=== PATIENT | female | born 1960 | race American Indian/Alaskan Native ===

== ENCOUNTER 2018-08-27 07:43 | Inpatient (IN) | payer OTHER ==
[2018-08-27] MEDS ORDERED: MAGNESIUM SULFATE 2GM/50ML 2 GM/50 ML BAG IV ONE (07:56)
[2018-08-27] MEDS ORDERED: DUONEB *Not for PRN Use IH ONE (07:56)
[2018-08-27] MEDS ORDERED: SOLU-Medrol IV ONE (07:56)
--- NOTE | 2018-08-27 08:00 | Emergency Department Report ---
ED Shortness of Breath HPI - General Chief Complaint: Dyspnea/Respdistress Stated Complaint: SHORTNESS OF BREATH Time Seen by Provider: 08/27/18 07:45 Source: patient, EMS Mode of arrival: Stretcher Limitations: No Limitations - History of Present Illness Initial Comments: Patient's 58-year-old female that presents to emergency room with complaints of shortness of breath and difficulty breathing. Patient states she was seen here on 08/19/2018 and was diagnosed with URI and reactive airway disease and given a Z-Shawn. Patient has taken her medication and has actually worsened. Patient states she saw her primary care 3 days ago. Patient states her cough portion. Patient case or shortness of breath and dyspnea on exertion or worsening. Patient denies chest pain and fever and chills. Patient denies diaphoresis. Patient denies nausea vomiting. MD Complaint: shortness of breath, cough -: Sudden Severity: severe Consistency: constant Improves With: rest, bronchodilators Worsens With: exertion, coughing Context: recent URI (and bronchitis/ ) Associated Symptoms: cough, sputum production Treatments Prior to Arrival: bronchodilator - Related Data Home Oxygen Therapy: No Previous Rx's Medication Instructions Recorded Last Taken Type Azithromycin [Zithromax Z-SHAWN] 250 mg PO DAILY #6 tab 08/19/18 Unknown Rx Allergies Allergy/AdvReac Type Severity Reaction Status Date / Time No Known Allergies Allergy Unverified 08/19/18 05:03 ED Review of Systems ROS: Stated complaint: SHORTNESS OF BREATH Other details as noted in HPI Constitutional: denies: chills, fever Eyes: denies: eye pain, eye discharge, vision change ENT: denies: ear pain, throat pain Respiratory: cough, shortness of breath, SOB with exertion, SOB at rest, wheezing Cardiovascular: denies: chest pain, palpitations Endocrine: no symptoms reported Gastrointestinal: denies: abdominal pain, nausea, diarrhea Genitourinary: denies: urgency, dysuria, discharge Musculoskeletal: denies: back pain, joint swelling, arthralgia Skin: denies: rash, lesions Neurological: denies: headache, weakness, paresthesias Psychiatric: denies: anxiety, depression Hematological/Lymphatic: denies: easy bleeding, easy bruising ED Past Medical Hx - Past Medical History Previous Medical History?: Yes Hx Hypertension: Yes Hx Diabetes: Yes Additional medical history: L breast Ca, chemo & radiation-2008. remission since 2007 - Surgical History Past Surgical History?: Yes Additional Surgical History: partial hysterectomy. L lumpectomy 2007 - Family History Family history: no significant - Social History Smoking Status: Never Smoker Substance Use Type: None - Medications Home Medications: Home Medications Medication Instructions Recorded Confirmed Last Taken Type Azithromycin [Zithromax Z-SHAWN] 250 mg PO DAILY #6 tab 08/19/18 Unknown Rx ED Physical Exam - General Limitations: No Limitations General appearance: alert, in no apparent distress - Head Head exam: Present: atraumatic, normocephalic - Eye Eye exam: Present: normal appearance - ENT ENT exam: Present: mucous membranes dry - Neck Neck exam: Present: normal inspection - Respiratory Respiratory exam: Present: wheezes, rhonchi. Absent: respiratory distress - Cardiovascular Cardiovascular Exam: Present: regular rate, normal rhythm. Absent: systolic murmur, diastolic murmur, rubs, gallop - GI/Abdominal GI/Abdominal exam: Present: soft, normal bowel sounds - Extremities Exam Extremities exam: Present: normal inspection - Back Exam Back exam: Present: normal inspection - Neurological Exam Neurological exam: Present: alert, oriented X3 - Psychiatric Psychiatric exam: Present: normal affect, normal mood - Skin Skin exam: Present: warm, dry, intact, normal color. Absent: rash ED Course Vital Signs 08/27/18 08/27/18 08/27/18 08:08 08:10 08:24 Temperature 98.6 F Pulse Rate 107 H Pulse Rate [ 104 H Bilateral] Respiratory 16 19 Rate Respiratory 18 Rate [Bilateral ] Blood Pressure 117/82 [Left] O2 Sat by Pulse 91 91 Oximetry - Reevaluation(s) Reevaluation #1: Initial evaluation done. Patient still having wheezing and shortness of breath. Patient will be given mag, Medrol as well as DuoNeb. 08/27/18 07:59 Patient's lung sounds have improved. Patient still has a slight wheeze. Patient still has rhonchi. Patient was admitted to the hospitalist service for further evaluation treatment. Discussed all results with patient. Discussed plan of care the patient. Patient agrees with plan of care and admission. 08/27/18 10:03 - Consultations Consultation #1: Hospitalist consultation for admission. Hospitalist to admit patient. Os was to assume care of patient. Bridge orders place. 08/27/18 10:23 ED Medical Decision Making - Lab Data Result diagrams: 08/27/18 08:01 08/27/18 08:01 - EKG Data -: EKG Interpreted by Me EKG shows normal: sinus rhythm, axis, ST-T waves Rate: tachycardia - EKG Data Interpretation: other (LBBB) - Radiology Data Radiology results: report reviewed AP CHEST: HISTORY: Difficulty in breathing A right middle lobe opacity has developed since 08/19/18. The remainder of the lungs are clear. Heart size and pulmonary vasculature appear borderline. No pleural fluid or pneumothorax. The bony structures are grossly intact. IMPRESSION: Right middle lobe airspace opacity. Correlate for early pneumonia. Borderline heart size and pulmonary veins. Transcribed By: TTR Dictated By: KIMBERLEE CEBALLOS JR, MD Electronically Authenticated By: KIMBERLEE CEBALLOS JR, MD Signed Date/Time: 08/27/18 0816 - Medical Decision Making She's 58-year-old female that presents with shortness of breath. Patient treated as an outpatient with Zithromax and failed outpatient therapy. Patient is a [facility] further evaluation treatment. Patient had an IV antibiotics and steroids and mag and 2 nebs in the ER. Patient slightly improved. Patient will require IV antibiotics and inpatient observation. - Differential Diagnosis pna. bronchitis. asthma/rad. sob Critical Care Time: Yes Critical care attestation.: If time is entered above; I have spent that time in minutes in the direct care of this critically ill patient, excluding procedure time. Critical Care Time: 45 minutes. ED Disposition Clinical Impression: Left bundle branch block, Cough, SOB (shortness of breath), Lactic acid acidosis, Hypoxia Pneumonia Qualifiers: Pneumonia type: due to unspecified organism Laterality: right Lung location: middle lobe of lung Qualified Code(s): J18.1 - Lobar pneumonia, unspecified organism Sepsis Qualifiers: Sepsis type: sepsis due to unspecified organism Qualified Code(s): A41.9 - Sepsis, unspecified organism Disposition: OP ADMIT IP TO THIS HOSP Is pt being admited?: Yes Does the pt Need Aspirin: No Condition: Critical Time of Disposition: 10:23
--- NOTE | 2018-08-27 08:18 | XRay Report ---
AP CHEST: HISTORY: Difficulty in breathing A right middle lobe opacity has developed since 08/19/18. The remainder of the lungs are clear. Heart size and pulmonary vasculature appear borderline. No pleural fluid or pneumothorax. The bony structures are grossly intact. IMPRESSION: Right middle lobe airspace opacity. Correlate for early pneumonia. Borderline heart size and pulmonary veins.
[2018-08-27 08:19] LABS: Basophils # (Auto) 0.1 K/mm3 (0.0-0.1); Basophils % (Auto) 1.1 % (0.0-1.8); Eosinophils # (Auto) 0.1 K/mm3 (0.0-0.4); Eosinophils % (Auto) 1.1 % (0.0-4.3); Hematocrit 41.8 % (30.3-42.9); Hemoglobin 13.6 gm/dl (10.1-14.3); Lymphocytes # (Auto) 2.7 K/mm3 (1.2-5.4); Lymphocytes % (Auto) 34.2 % (13.4-35.0); Mean Corpuscular HGB Conc 33 % (30-34); Mean Corpuscular Volume 91 fl (79-97); Monocytes # (Auto) 0.4 K/mm3 (0.0-0.8); Monocytes % (Auto) 5.7 % (0.0-7.3); Platelet Count 243 K/mm3 (140-440); Red Cell Distribution Width 14.5 % (13.2-15.2)
[2018-08-27 08:31] LABS: Creatine Kinase MB 2.2 ng/mL (0.0-4.0)
[2018-08-27 08:33] LABS: Alanine Aminotransferase 22 units/L (7-56); Albumin 4.1 g/dL (3.9-5); BUN/Creatinine Ratio 17; Blood Urea Nitrogen 10 mg/dL (7-17); Calcium 8.7 mg/dL (8.4-10.2); Hemolysis Index 12
[2018-08-27] MEDS ORDERED: LEVAQUIN 750MG/150ML 750 MG/150 ML BAG IV ONE (09:39)
[2018-08-27] MEDS ORDERED: NACL 0.9% 1000 ML 1,000 ML IV ONE (09:40)
[2018-08-27] MEDS ORDERED: ZOFRAN IV PRN (11:59)
[2018-08-27] MEDS ORDERED: TYLENOL PO PRN (11:59)
[2018-08-27] MEDS ORDERED: SODIUM CHLORIDE FLUSH SYRINGE 10 ML IV PRN (11:59)
--- NOTE | 2018-08-27 11:59 | History and Physical Report ---
History of Present Illness Date of examination: 08/27/18 Date of admission: 08/27/18 10:22 Chief complaint: sob History of present illness: Patient's 58-year-old female that presents to emergency room with complaints of shortness of breath and difficulty breathing. Patient states she was seen here on 08/19/2018 and was diagnosed with URI and reactive airway disease and given a Z-Shawn. Patient has taken her medication and has actually worsened. Patient states she saw her primary care 3 days ago. Patient states her cough has worsened. She reports shortness of breath and dyspnea on exertion. Patient denies chest pain, fever and chills. Patient denies diaphoresis. Patient denies nausea vomiting. Past History Past Medical History: diabetes, hypertension Past Surgical History: No surgical history Social history: no significant social history Family history: no significant family history Medications and Allergies Allergies Allergy/AdvReac Type Severity Reaction Status Date / Time No Known Allergies Allergy Unverified 08/19/18 05:03 Home Medications Medication Instructions Recorded Confirmed Last Taken Type Azithromycin [Zithromax Z-SHAWN] 250 mg PO DAILY #6 tab 08/19/18 Unknown Rx Review of Systems All systems: negative Exam - Constitutional Vitals: Temp Pulse Resp BP Pulse Ox 98.6 F 104 H 18 117/82 91 08/27/18 08:08 08/27/18 08:24 08/27/18 08:24 08/27/18 08:08 08/27/18 08:10 General appearance: Present: no acute distress, well-nourished - EENT Eyes: Present: PERRL ENT: hearing intact, clear oral mucosa - Neck Neck: Present: supple, normal ROM - Respiratory Respiratory effort: normal Respiratory: bilateral: diminished, rhonchi - Cardiovascular Heart Sounds: Present: S1 & S2. Absent: rub, click - Extremities Extremities: pulses symmetrical, No edema Peripheral Pulses: within normal limits - Abdominal General gastrointestinal: Present: soft, non-tender, non-distended, normal bowel sounds Female genitourinary: Present: normal - Integumentary Integumentary: Present: clear, warm, dry - Musculoskeletal Musculoskeletal: gait normal, strength equal bilaterally - Psychiatric Psychiatric: appropriate mood/affect, intact judgment & insight - Neurologic Neurologic: CNII-XII intact, moves all extremities Results - Labs CBC & Chem 7: 08/27/18 08:01 08/27/18 08:01 Labs: Laboratory Last Values WBC 7.8 K/mm3 (4.5-11.0) 08/27/18 08:01 RBC 4.60 M/mm3 (3.65-5.03) 08/27/18 08:01 Hgb 13.6 gm/dl (10.1-14.3) 08/27/18 08:01 Hct 41.8 % (30.3-42.9) 08/27/18 08:01 MCV 91 fl (79-97) 08/27/18 08:01 MCH 30 pg (28-32) 08/27/18 08:01 MCHC 33 % (30-34) 08/27/18 08:01 RDW 14.5 % (13.2-15.2) 08/27/18 08:01 Plt Count 243 K/mm3 (140-440) 08/27/18 08:01 Lymph % (Auto) 34.2 % (13.4-35.0) 08/27/18 08:01 [place] % (Auto) 5.7 % (0.0-7.3) 08/27/18 08:01 Eos % (Auto) 1.1 % (0.0-4.3) 08/27/18 08:01 Baso % (Auto) 1.1 % (0.0-1.8) 08/27/18 08:01 Lymph # 2.7 K/mm3 (1.2-5.4) 08/27/18 08:01 [place] # 0.4 K/mm3 (0.0-0.8) 08/27/18 08:01 Eos # 0.1 K/mm3 (0.0-0.4) 08/27/18 08:01 Baso # 0.1 K/mm3 (0.0-0.1) 08/27/18 08:01 Seg Neutrophils % 57.9 % (40.0-70.0) 08/27/18 08:01 Seg Neutrophils # 4.5 K/mm3 (1.8-7.7) 08/27/18 08:01 Sodium 144 mmol/L (137-145) 08/27/18 08:01 Potassium 3.4 mmol/L (3.6-5.0) L 08/27/18 08:01 Chloride 104.3 mmol/L (98-107) 08/27/18 08:01 Carbon Dioxide 24 mmol/L (22-30) 08/27/18 08:01 Anion Gap 19 mmol/L 08/27/18 08:01 BUN 10 mg/dL (7-17) 08/27/18 08:01 Creatinine 0.6 mg/dL (0.7-1.2) L 08/27/18 08:01 Estimated GFR > 60 ml/min 08/27/18 08:01 BUN/Creatinine Ratio 17 % 08/27/18 08:01 Glucose 225 mg/dL (65-100) H 08/27/18 08:01 Lactic Acid 3.10 mmol/L (0.7-2.0) H* 08/27/18 09:10 Calcium 8.7 mg/dL (8.4-10.2) 08/27/18 08:01 Total Bilirubin 0.20 mg/dL (0.1-1.2) 08/27/18 08:01 AST 23 units/L (5-40) 08/27/18 08:01 ALT 22 units/L (7-56) 08/27/18 08:01 Alkaline Phosphatase 121 units/L (35-129) 08/27/18 08:01 Total Creatine Kinase 115 units/L (30-135) 08/27/18 08:01 CK-MB (CK-2) 2.2 ng/mL (0.0-4.0) 08/27/18 08:01 CK-MB (CK-2) Rel Index 1.9 (0-4) 08/27/18 08:01 Troponin T < 0.010 ng/mL (0.00-0.029) 08/27/18 08:01 Total Protein 7.0 g/dL (6.3-8.2) 08/27/18 08:01 Albumin 4.1 g/dL (3.9-5) 08/27/18 08:01 Albumin/Globulin Ratio 1.4 % 08/27/18 08:01 Assessment and Plan Assessment and plan: RML pneumonia. IV abx. F/U blood Cx. Serial CXR COPD exacerbation. COPD pathway. IV steroids and breathing treatments DM type n2. Accuchecks and SSRI HTN. Normotensive presently off meds
[2018-08-27] MEDS ORDERED: PROVENTIL IH PRN (13:47)
[2018-08-27] MEDS ORDERED: DUONEB *Not for PRN Use IH SCH (14:00)
[2018-08-27] MEDS: DUONEB *Not for PRN Use IH SCH (20:22)
[2018-08-27] MEDS: HumuLIN R SUB-Q SCH (21:57)
[2018-08-27] MEDS: SODIUM CHLORIDE FLUSH SYRINGE 10 ML IV SCH (21:59)
[2018-08-27] MEDS: SOLU-Medrol IV SCH (21:59)
[2018-08-27] MEDS: NACL 0.9% 1000 ML 1,000 ML IV SCH (22:01)
[2018-08-28 05:23] LABS: Basophils % (Auto) 0.4 % (0.0-1.8); Hematocrit 38.1 % (30.3-42.9); Hemoglobin 12.5 gm/dl (10.1-14.3); Lymphocytes # (Auto) 0.9 K/mm3 (1.2-5.4); Lymphocytes % (Auto) 13.5 % (13.4-35.0); Mean Corpuscular HGB Conc 33 % (30-34); Mean Corpuscular Volume 90 fl (79-97); Monocytes # (Auto) 0.1 K/mm3 (0.0-0.8); Platelet Count 248 K/mm3 (140-440); Red Blood Count 4.23 M/mm3 (3.65-5.03); Red Cell Distribution Width 14.1 % (13.2-15.2)
[2018-08-28 05:38] LABS: BUN/Creatinine Ratio 18; Blood Urea Nitrogen 9 mg/dL (7-17); Hemolysis Index 6
[2018-08-28] MEDS: HumuLIN R SUB-Q SCH ×4 (07:30→21:43)
[2018-08-28] MEDS: DUONEB *Not for PRN Use IH SCH ×3 (07:59→19:44)
[2018-08-28] MEDS: NACL 0.9% 1000 ML 1,000 ML IV SCH (09:41)
[2018-08-28] MEDS: LOVENOX SUB-Q SCH (09:41)
[2018-08-28] MEDS: SOLU-Medrol IV SCH ×2 (09:41→21:41)
[2018-08-28] MEDS: SODIUM CHLORIDE FLUSH SYRINGE 10 ML IV SCH ×2 (09:42→21:46)
[2018-08-28] MEDS: ROCEPHIN/NS 2 GM/100 ML 2 GM/100 ML BAG IV SCH (09:47)
[2018-08-28] MEDS: ZITHROMAX 500 MG in NACL 0.9% 250ML 250 ML IV SCH (10:00)
--- NOTE | 2018-08-28 15:25 | Progress Note ---
Assessment and Plan Assessment and plan: RML pneumonia. Failed outpatient treatment. Currently patient is on IV abx. - Blood culture negative so far - Patient showed improvement will continue with IV antibiotic COPD exacerbation. - COPD pathway. IV steroids and breathing treatments DM type n2. Accuchecks and SSRI. Blood sugar is well controlled HTN. Normotensive presently off meds DVT prophylaxis; Lovenox Disposition; continue inpatient care and possible discharge tomorrow. History Interval history: Patient was seen and evaluated this morning, patient's shortness of breath, cough is getting better. Hospitalist Physical - Physical exam Narrative exam: Not in cardiopulmonary distress. The patient appeared well nourished and normally developed. Vital signs as documented. Head exam is unremarkable. No scleral icterus . Neck is without jugular venous distension, thyromegaly, or carotid bruits. Lungs are clear to auscultation. Cardiac exam reveals regular rate and Rhythm. Abdominal exam reveals normal bowel sounds. Extremities are nonedematous. CONTACT WORKER: Alert and oriented 3. No focal weakness. - Constitutional Vitals: Temp Pulse Resp BP Pulse Ox 98.6 F 114 H 18 125/82 91 08/28/18 11:37 08/28/18 13:50 08/28/18 13:50 08/28/18 11:37 08/28/18 11:37 General appearance: Present: no acute distress, well-nourished Results - Labs CBC & Chem 7: 08/28/18 04:46 08/28/18 04:46 Labs: Laboratory Last Values WBC 6.6 K/mm3 (4.5-11.0) 08/28/18 04:46 RBC 4.23 M/mm3 (3.65-5.03) 08/28/18 04:46 Hgb 12.5 gm/dl (10.1-14.3) 08/28/18 04:46 Hct 38.1 % (30.3-42.9) 08/28/18 04:46 MCV 90 fl (79-97) 08/28/18 04:46 MCH 30 pg (28-32) 08/28/18 04:46 MCHC 33 % (30-34) 08/28/18 04:46 RDW 14.1 % (13.2-15.2) 08/28/18 04:46 Plt Count 248 K/mm3 (140-440) 08/28/18 04:46 Lymph % (Auto) 13.5 % (13.4-35.0) 08/28/18 04:46 [place] % (Auto) 2.0 % (0.0-7.3) 08/28/18 04:46 Eos % (Auto) 0.0 % (0.0-4.3) 08/28/18 04:46 Baso % (Auto) 0.4 % (0.0-1.8) 08/28/18 04:46 Lymph # 0.9 K/mm3 (1.2-5.4) L 08/28/18 04:46 [place] # 0.1 K/mm3 (0.0-0.8) 08/28/18 04:46 Eos # 0.0 K/mm3 (0.0-0.4) 08/28/18 04:46 Baso # 0.0 K/mm3 (0.0-0.1) 08/28/18 04:46 Seg Neutrophils % 84.1 % (40.0-70.0) H 08/28/18 04:46 Seg Neutrophils # 5.5 K/mm3 (1.8-7.7) 08/28/18 04:46 Sodium 144 mmol/L (137-145) 08/28/18 04:46 Potassium 4.1 mmol/L (3.6-5.0) D 08/28/18 04:46 Chloride 108.4 mmol/L (98-107) H 08/28/18 04:46 Carbon Dioxide 25 mmol/L (22-30) 08/28/18 04:46 Anion Gap 15 mmol/L 08/28/18 04:46 BUN 9 mg/dL (7-17) 08/28/18 04:46 Creatinine 0.5 mg/dL (0.7-1.2) L 08/28/18 04:46 Estimated GFR > 60 ml/min 08/28/18 04:46 BUN/Creatinine Ratio 18 % 08/28/18 04:46 Glucose 145 mg/dL (65-100) H 08/28/18 04:46 POC Glucose 135 (70-105) H 08/28/18 11:19 Lactic Acid 0.90 mmol/L (0.7-2.0) 08/28/18 09:32 Calcium 9.0 mg/dL (8.4-10.2) 08/28/18 04:46 Total Bilirubin 0.20 mg/dL (0.1-1.2) 08/27/18 08:01 AST 23 units/L (5-40) 08/27/18 08:01 ALT 22 units/L (7-56) 08/27/18 08:01 Alkaline Phosphatase 121 units/L (35-129) 08/27/18 08:01 Total Creatine Kinase 115 units/L (30-135) 08/27/18 08:01 CK-MB (CK-2) 2.2 ng/mL (0.0-4.0) 08/27/18 08:01 CK-MB (CK-2) Rel Index 1.9 (0-4) 08/27/18 08:01 Troponin T < 0.010 ng/mL (0.00-0.029) 08/27/18 08:01 Total Protein 7.0 g/dL (6.3-8.2) 08/27/18 08:01 Albumin 4.1 g/dL (3.9-5) 08/27/18 08:01 Albumin/Globulin Ratio 1.4 % 08/27/18 08:01
--- NOTE | 2018-08-29 08:34 | Event Note ---
Date: 08/29/18 Code met was called earlier this morning, patient was diaphoretic and was tachycardic, EKG was done and image was sent to Dr Gonzalez and doesn't think it is STEMI. Dr Richardson was over paged and patient transferred to telemetry. Troponin, CTA and CXR ordered will follow the result.
[2018-08-29 08:44] LABS: Creatine Kinase MB 2.7 ng/mL (0.0-4.0)
[2018-08-29] MEDS: DUONEB *Not for PRN Use IH SCH ×3 (08:59→20:26)
[2018-08-29] MEDS: SOLU-Medrol IV SCH ×2 (09:00→22:21)
--- NOTE | 2018-08-29 09:45 | Consultation ---
History of Present Illness Consult date: 08/29/18 Requesting physician: JESÚS CREWS Consult reason: tachycardia Past History Past Medical History: diabetes, hypertension Past Surgical History: No surgical history Social history: no significant social history Family history: no significant family history Medications and Allergies Allergies Allergy/AdvReac Type Severity Reaction Status Date / Time No Known Allergies Allergy Unverified 08/19/18 05:03 Home Medications Medication Instructions Recorded Confirmed Last Taken Type Amlodipine Besylate 10 mg PO DAILY 08/27/18 08/27/18 08/26/18 History Atorvastatin Calcium 80 mg PO DAILY 08/27/18 08/27/18 08/26/18 History Lisinopril 20 mg PO DAILY 08/27/18 08/27/18 08/26/18 History Potassium 20 mg PO DAILY 08/27/18 08/27/18 08/26/18 History Venlafaxine 75 mg PO DAILY 08/27/18 08/27/18 08/26/18 History Vitamin D (Nf) 125 mg PO DAILY 08/27/18 08/27/18 08/26/18 History metFORMIN 500 insert PO BID 08/27/18 08/27/18 08/26/18 History potadss Active Meds: Active Medications Acetaminophen (Tylenol) 650 mg PO Q4H PRN PRN Reason: Pain MILD(1-3)/Fever >100.5/RIVERA Albuterol (Proventil) 2.5 mg IH Q4HRT PRN PRN Reason: Shortness Of Breath Albuterol/Ipratropium (Duoneb *Not For Prn Use*) 1 ampul IH TIDRT [facility] Last Admin: 08/29/18 08:59 Dose: 1 ampul Documented by: Enoxaparin Sodium (Lovenox) 40 mg SUB-Q QDAY [facility] Last Admin: 08/28/18 09:41 Dose: 40 mg Documented by: Azithromycin 500 mg/ Sodium (Chloride) 250 mls @ 250 mls/hr IV Q24HR [facility]; Protocol Last Admin: 08/28/18 10:00 Dose: 250 mls/hr Documented by: Ceftriaxone Sodium (Rocephin/Ns 2 Gm/100 Ml) 2 gm in 100 mls @ 200 mls/hr IV Q24HR [facility]; Protocol Last Admin: 08/28/18 09:47 Dose: 200 mls/hr Documented by: Sodium Chloride (Nacl 0.9% 1000 Ml) 1,000 mls @ 75 mls/hr IV DIRECT [facility] Last Admin: 08/28/18 09:41 Dose: 75 mls/hr Documented by: Insulin Human Regular (Humulin R) 0 units SUB-Q ACHS [facility]; Protocol Last Admin: 08/28/18 21:43 Dose: 2 units Documented by: Methylprednisolone Sodium Succinate (Solu-Medrol) 40 mg IV Q12HR [facility] Last Admin: 08/28/18 21:41 Dose: 40 mg Documented by: Ondansetron HCl (Zofran) 4 mg IV Q8H PRN PRN Reason: Nausea And Vomiting Last Admin: 08/29/18 08:07 Dose: 4 mg Documented by: Sodium Chloride (Sodium Chloride Flush Syringe 10 Ml) 10 ml IV BID [facility] Last Admin: 08/28/18 21:46 Dose: 10 ml Documented by: Sodium Chloride (Sodium Chloride Flush Syringe 10 Ml) 10 ml IV PRN PRN PRN Reason: LINE FLUSH Physical Examination Vital Signs Temp Pulse Resp BP Pulse Ox 98.6 F 107 H 16 117/82 91 08/27/18 08:08 08/27/18 08:08 08/27/18 08:08 08/27/18 08:08 08/27/18 08:08 Results 08/28/18 04:46 08/28/18 04:46 Cardiac Enzymes 08/29/18 Range/Units 08:19 CK-MB (CK-2) 2.7 (0.0-4.0) ng/mL
--- NOTE | 2018-08-29 09:51 | XRay Report ---
AP CHEST: HISTORY: Respiratory distress Hazy opacity at the right lung base has resolved since 08/27/18. The lungs appear well-aerated. No pleural effusion or pneumothorax. Heart size and pulmonary vessels appear borderline on today's exam. Chronic granulomatous findings are again noted. IMPRESSION: Right lower lung infiltration has resolved since the exam 2 days ago. Borderline heart size and pulmonary vessels.
--- NOTE | 2018-08-29 10:43 | Event Note ---
Date: 08/29/18 Detailed cardiology consultation dictated. ECG demonstrates ST with LBBB, no acute ischemic changes, no STEMI. Ken negative for AMI. Obtain echo, await chest CTA, plan for ischemic workup once medically stabilized prior to hospital discharge. Cont tele. Abx per tom. Percy ARELLANO NP / DR. Lorenzo RIVAS
[2018-08-29] MEDS: HumuLIN R SUB-Q SCH ×4 (11:16→22:22)
--- NOTE | 2018-08-29 11:18 | Cat Scan Report ---
CTA CHEST: HISTORY: Respiratory distress, low O2 sats. COMPARISON: none. TECHNIQUE: Helical CT in 1.25mm intervals following IV contrast. Pulmonary embolus protocol. Sagittal and coronal reformatted images. Rotational MIP images. FINDINGS: Contrast bolus is satisfactory. No pulmonary embolus is identified. Thyroid gland: Normal. Tracheobronchial tree: Normal. Esophagus: Normal. Heart: Normal. Pericardium: Normal. Mediastinum: Normal. Lung Pearson: Minor subpleural atelectasis is noted in the posterior lower lobes. There is subtle hazy groundglass shadowing in the right lower lobe which could represent resolving infiltrate or focal edema. The remainder of the lungs are well-aerated. Pleural Spaces: Small layering bilateral pleural effusions measure up to 2 cm in thickness. No pneumothorax. Musculoskeletal: Intact. Limited images of the upper abdomen demonstrated 2.5 cm fat-containing lesion in the superior right kidney consistent with an incidental angiomyolipoma. Scattered liver cysts are also noted. IMPRESSION: No evidence for pulmonary embolus. Residual edema or infiltrate in the right lower lobe as described. Small bilateral pleural effusions of uncertain etiology. Right renal angiomyolipoma. Scattered liver cysts.
[2018-08-29] MEDS: LOVENOX SUB-Q SCH (11:40)
[2018-08-29] MEDS: BABY ASPIRIN PO SCH (11:40)
[2018-08-29] MEDS: ZITHROMAX 500 MG in NACL 0.9% 250ML 250 ML IV SCH (11:40)
[2018-08-29 11:41] LABS: ABG Base Excess 0.3 mmol/L (-2.0-3.0); ABG HCO3 24.8 mmol/L (20.0-26.0); ABG Methemoglobin 0.5 % (0.0-1.5); ABG Oxygen Saturation 96.8 % (95.0-99.0); ABG PCO2 39.6 mm Hg; ABG PH 7.414 pH Units (7.350-7.450); ABG PO2 84.6 mm Hg (80.0-90.0)
[2018-08-29] MEDS: SODIUM CHLORIDE FLUSH SYRINGE 10 ML IV SCH ×2 (11:41→22:22)
--- NOTE | 2018-08-29 13:36 | Consultation ---
CARDIOLOGY CONSULTATION REFERRING PHYSICIAN: Hospitalist service. CHIEF COMPLAINT: Shortness of breath. HISTORY OF PRESENT ILLNESS: The patient is a pleasant 58-year-old -[place] female with a history of hypertension, diabetes, past tobacco abuse, presents with shortness of breath, difficulty breathing, was here on 08/19/2018, was diagnosed in ER with URI and given a Z-SHAWN. She comes in with worsening shortness of breath over the past week and describes cough, fevers, chills, no chest pain. MEDICATIONS: Inpatient and outpatient medications reviewed. REVIEW OF SYSTEMS: As per HPI. PHYSICAL EXAMINATION: VITAL SIGNS: Blood pressure is 110/50. She is afebrile. Telemetry reveals sinus rhythm in the 90s. HEENT: Sclerae are anicteric. PERRLA. NECK: Supple. No mass or JVD. CHEST: Decreased breath sounds, bilateral bases. Overall, moderate air movement. CARDIOVASCULAR: Regular rate and rhythm, S1, S2. ABDOMEN: Soft, nontender, nondistended. Normoactive bowel sounds in 4 quadrants. EXTREMITIES: No significant edema. SKIN: Warm, dry, and intact. No rashes. LABORATORY DATA: EKG reveals sinus tachycardia, left bundle branch block. The patient was here on 08/19/2018. EKG then showed sinus rhythm and left bundle branch block as well. LABORATORY DATA: Lactic acid 3.1. CBC is normal. Potassium is 4.1, creatinine is 0.5. Troponins are negative x 2. Chest x-ray shows a right lower lobe infiltrate. ASSESSMENT: In summary, the patient is a pleasant 58-year-old female. 1. Acute hypoxemic respiratory failure, likely due to right lower lobe pneumonia. 2. Abnormal EKG with left bundle branch block. 3. Hypertension. 4. Diabetes. 5. Past tobacco abuse. 6. Past marijuana use. PLAN: At this point, pneumonia is being treated for primary antibiotics and steroids. We will initiate baby aspirin. Continue Lovenox for DVT prophylaxis. We will check an echocardiogram. Once pneumonia is improved, we will consider ischemic workup prior to discharge. JOB# [id number] SBM/[id number]
--- NOTE | 2018-08-29 16:23 | Progress Note ---
Assessment and Plan Assessment and plan: Code met was called earlier this morning and patient was hypoxic, tachycardic - EKG was done and cardiology saw and patient didn't have STEMI - CTA chest was done and negative for PE - CXR was normal - She was on BIPAP and saturating well - transferred to tele - Cardiology said will do ECHO and stress test before discharge RML pneumonia. Failed outpatient treatment. Currently patient is on IV abx. - Blood culture negative so far - Patient showed improvement will continue with IV antibiotic COPD exacerbation. - COPD pathway. IV steroids and breathing treatments DM type n2. Accuchecks and SSRI. Blood sugar is well controlled HTN. Normotensive presently off meds DVT prophylaxis; Lovenox Disposition; continue inpatient care. The high probability of a clinically significant, sudden or life threatening deterioration of the [CV, respiratory] system(s) required my full and direct attention, intervention and personal management. The aggregate critical care time was [34] minutes. This time is in addition to time spent performing reported procedures but includes the following: [x] Data Review and interpretation [x] Patient assessment and monitoring of vital signs [x] Documentation [x] Medication orders and management History Interval history: Patient was seen and evaluated this morning, code met was called in the morning and patient was hypoxic and tachycardic. Hospitalist Physical - Physical exam Narrative exam: Not in cardiopulmonary distress. The patient appeared well nourished and normally developed. Vital signs as documented. Head exam is unremarkable. No scleral icterus . Neck is without jugular venous distension, thyromegaly, or carotid bruits. Lungs are clear to auscultation. Cardiac exam reveals regular rate and Rhythm. Abdominal exam reveals normal bowel sounds. Extremities are nonedematous. 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 No focal weakness. - Constitutional Vitals: Temp Pulse Resp BP Pulse Ox 97.9 F 100 H 19 117/77 98 08/29/18 11:51 08/29/18 16:10 08/29/18 13:26 08/29/18 16:10 08/29/18 16:10 General appearance: Present: no acute distress, well-nourished Results - Labs CBC & Chem 7: 08/28/18 04:46 08/28/18 04:46 Labs: Laboratory Last Values WBC 6.6 K/mm3 (4.5-11.0) 08/28/18 04:46 RBC 4.23 M/mm3 (3.65-5.03) 08/28/18 04:46 Hgb 12.5 gm/dl (10.1-14.3) 08/28/18 04:46 Hct 38.1 % (30.3-42.9) 08/28/18 04:46 MCV 90 fl (79-97) 08/28/18 04:46 MCH 30 pg (28-32) 08/28/18 04:46 MCHC 33 % (30-34) 08/28/18 04:46 RDW 14.1 % (13.2-15.2) 08/28/18 04:46 Plt Count 248 K/mm3 (140-440) 08/28/18 04:46 Lymph % (Auto) 13.5 % (13.4-35.0) 08/28/18 04:46 [place] % (Auto) 2.0 % (0.0-7.3) 08/28/18 04:46 Eos % (Auto) 0.0 % (0.0-4.3) 08/28/18 04:46 Baso % (Auto) 0.4 % (0.0-1.8) 08/28/18 04:46 Lymph # 0.9 K/mm3 (1.2-5.4) L 08/28/18 04:46 [place] # 0.1 K/mm3 (0.0-0.8) 08/28/18 04:46 Eos # 0.0 K/mm3 (0.0-0.4) 08/28/18 04:46 Baso # 0.0 K/mm3 (0.0-0.1) 08/28/18 04:46 Seg Neutrophils % 84.1 % (40.0-70.0) H 08/28/18 04:46 Seg Neutrophils # 5.5 K/mm3 (1.8-7.7) 08/28/18 04:46 ABG pH 7.414 pH Units (7.350-7.450) 08/29/18 Unknown ABG pCO2 39.6 mm Hg 08/29/18 Unknown ABG pO2 84.6 mm Hg (80.0-90.0) 08/29/18 Unknown ABG HCO3 24.8 mmol/L (20.0-26.0) 08/29/18 Unknown ABG O2 Saturation 96.8 % (95.0-99.0) 08/29/18 Unknown ABG O2 Content 17.2 (0.0-44) 08/29/18 Unknown ABG Base Excess 0.3 mmol/L (-2.0-3.0) 08/29/18 Unknown ABG Hemoglobin 12.8 gm/dl (12.0-16.0) 08/29/18 Unknown ABG Carboxyhemoglobin 1.1 % (0.0-5.0) 08/29/18 Unknown ABG Methemoglobin 0.5 % (0.0-1.5) 08/29/18 Unknown Oxyhemoglobin 95.2 % (95.0-99.0) 08/29/18 Unknown FiO2 21 % 08/29/18 Unknown Sodium 144 mmol/L (137-145) 08/28/18 04:46 Potassium 4.1 mmol/L (3.6-5.0) D 08/28/18 04:46 Chloride 108.4 mmol/L (98-107) H 08/28/18 04:46 Carbon Dioxide 25 mmol/L (22-30) 08/28/18 04:46 Anion Gap 15 mmol/L 08/28/18 04:46 BUN 9 mg/dL (7-17) 08/28/18 04:46 Creatinine 0.5 mg/dL (0.7-1.2) L 08/28/18 04:46 Estimated GFR > 60 ml/min 08/28/18 04:46 BUN/Creatinine Ratio 18 % 08/28/18 04:46 Glucose 145 mg/dL (65-100) H 08/28/18 04:46 POC Glucose 151 (70-105) H 08/29/18 11:54 Lactic Acid 0.90 mmol/L (0.7-2.0) 08/28/18 09:32 Calcium 9.0 mg/dL (8.4-10.2) 08/28/18 04:46 Total Bilirubin 0.20 mg/dL (0.1-1.2) 08/27/18 08:01 AST 23 units/L (5-40) 08/27/18 08:01 ALT 22 units/L (7-56) 08/27/18 08:01 Alkaline Phosphatase 121 units/L (35-129) 08/27/18 08:01 Total Creatine Kinase 113 units/L (30-135) 08/29/18 08:19 CK-MB (CK-2) 2.7 ng/mL (0.0-4.0) 08/29/18 08:19 CK-MB (CK-2) Rel Index 2.3 (0-4) 08/29/18 08: Troponin T < 0.010 ng/mL (0.00-0.029) 08/29/18 08: Total Protein 7.0 g/dL (6.3-8.2) 08/27/18 08:01 Albumin 4.1 g/dL (3.9-5) 08/27/18 08: Albumin/Globulin Ratio 1.4 % 08/27/18 08:01
[2018-08-29] MEDS: ROCEPHIN/NS 2 GM/100 ML 2 GM/100 ML BAG IV SCH (18:25)
[2018-08-30] MEDS: NACL 0.9% 1000 ML 1,000 ML IV SCH ×2 (01:31→18:47)
[2018-08-30] MEDS: HumuLIN R SUB-Q SCH ×4 (08:54→22:00)
[2018-08-30] MEDS: DUONEB *Not for PRN Use IH SCH ×3 (09:34→21:32)
[2018-08-30] MEDS: SOLU-Medrol IV SCH ×2 (10:24→21:47)
[2018-08-30] MEDS: LOVENOX SUB-Q SCH (10:24)
[2018-08-30] MEDS: BABY ASPIRIN PO SCH (10:24)
[2018-08-30] MEDS: SODIUM CHLORIDE FLUSH SYRINGE 10 ML IV SCH ×2 (10:25→21:48)
[2018-08-30] MEDS: ROCEPHIN/NS 2 GM/100 ML 2 GM/100 ML BAG IV SCH (10:25)
[2018-08-30 10:34] LABS: Basophils % (Auto) 0.4 % (0.0-1.8); Hematocrit 39.5 % (30.3-42.9); Hemoglobin 12.9 gm/dl (10.1-14.3); Lymphocytes # (Auto) 2.1 K/mm3 (1.2-5.4); Lymphocytes % (Auto) 23.1 % (13.4-35.0); Mean Corpuscular HGB Conc 33 % (30-34); Mean Corpuscular Volume 90 fl (79-97); Monocytes # (Auto) 0.7 K/mm3 (0.0-0.8); Monocytes % (Auto) 7.9 % (0.0-7.3); Platelet Count 253 K/mm3 (140-440); Red Blood Count 4.41 M/mm3 (3.65-5.03); Red Cell Distribution Width 14.9 % (13.2-15.2)
[2018-08-30 10:50] LABS: BUN/Creatinine Ratio 12; Blood Urea Nitrogen 6 mg/dL (7-17); Calcium 8.8 mg/dL (8.4-10.2); Hemolysis Index 23
[2018-08-30] MEDS: ZITHROMAX 500 MG in NACL 0.9% 250ML 250 ML IV SCH (11:03)
--- NOTE | 2018-08-30 13:58 | Progress Note ---
Assessment and Plan Echo reviewed - EF 15-20%, LA mild to mod dilated, RV slightly dilated, oval calcified mass adherent to the medial aspect of the RA wall, mod to severe MR, mod pulm HTN with RVSP 56mmHg. CMP is new diagnosis for pt. Initiate lopressor (beta selective - pt with ? COPD exacerbation per primary) and lisinopril and titrate as tolerated. HOMERO recommended for further visualization of RA mass. LHC recommended to r/o ischemic CMP. Indications, potential risks and benefits of these procedures reviewed with pt and she is agreeable to proceed with both. Will plan for HOMERO and LHC on 09/02/2017. The patient has been seen in conjunction with Dr. Lorenzo Becker who agrees with the assessment and plan of care. - Patient Problems (1) Pneumonia Current Visit: Yes Status: Acute Qualifiers: Pneumonia type: due to unspecified organism Laterality: right Lung location: middle lobe of lung Qualified Code(s): J18.1 - Lobar pneumonia, unspecified organism (2) Acute respiratory failure Current Visit: Yes Status: Acute (3) Acute HFrEF (heart failure with reduced ejection fraction) Current Visit: Yes Status: Acute (4) Cardiomyopathy Current Visit: Yes Status: Chronic (5) Left bundle branch block Current Visit: Yes Status: Acute (6) HTN (hypertension) Current Visit: Yes Status: Chronic (7) Diabetes Current Visit: Yes Status: Chronic (8) Obesity Current Visit: Yes Status: Acute (9) Mitral regurgitation Current Visit: Yes Status: Chronic (10) Pulmonary hypertension Current Visit: Yes Status: Chronic Subjective Date of service: 08/30/18 Principal diagnosis: PNA; HF Interval history: pt resting comfortably in bed, states she is feeling better. tele reviewed - in SR with bout of ST this AM. Objective Last Vital Signs Temp 98.2 F 08/29/18 23:20 Pulse 91 H 08/30/18 09:50 Resp 18 08/30/18 09:50 BP 130/86 08/29/18 23:20 Pulse Ox 99 08/30/18 09:55 - Physical Examination General: No Apparent Distress HEENT: Positive: PERRL, Normocephaly, Mucus Membranes Moist Neck: Positive: neck supple, trachea midline Cardiac: Positive: Reg Rate and Rhythm, S1/S2 Lungs: Positive: Decreased Breath Sounds Neuro: Positive: Grossly Intact Abdomen: Positive: Soft. Negative: Tender Skin: Negative: Rash, Wound Musculoskeletal: No Pain Extremities: Absent: edema - Labs and Meds CBC 08/30/18 Range/Units 10:02 WBC 9.1 (4.5-11.0) K/mm3 RBC 4.41 (3.65-5.03) M/mm3 Hgb 12.9 (10.1-14.3) gm/dl Hct 39.5 (30.3-42.9) % Plt Count 253 (140-440) K/mm3 Lymph # 2.1 (1.2-5.4) K/mm3 [place] # 0.7 (0.0-0.8) K/mm3 Eos # 0.0 (0.0-0.4) K/mm3 Baso # 0.0 (0.0-0.1) K/mm3 Comprehensive Metabolic Panel 08/30/18 Range/Units 10:02 Sodium 144 (137-145) mmol/L Potassium 3.8 (3.6-5.0) mmol/L Chloride 104.4 (98-107) mmol/L Carbon Dioxide 26 (22-30) mmol/L BUN 6 L (7-17) mg/dL Creatinine 0.5 L (0.7-1.2) mg/dL Glucose 127 H (65-100) mg/dL Calcium 8.8 (8.4-10.2) mg/dL - Imaging and Cardiology EKG: report reviewed, image reviewed Echo: report reviewed - Telemetry EKG Rhythm: Sinus Rhythm
--- NOTE | 2018-08-30 15:39 | Progress Note ---
Assessment and Plan Assessment and plan: Code met was called yesterday morning and patient was hypoxic, tachycardic - EKG was done and cardiology saw and patient didn't have STEMI - CTA chest was done and negative for PE - CXR was normal - She was on BIPAP and saturating well - Patient is saturating well on 2 L and her oxygen today Cardiology consulted for tachycardia - Echo reviewed - EF 15-20%, LA mild to mod dilated, RV slightly dilated, oval calcified mass adherent to the medial aspect of the RA wall, mod to severe MR, mod pulm HTN with RVSP 56mmHg. CMP is new diagnosis for pt. Initiate lopressor (beta selective - pt with ? COPD exacerbation per primary) and lisinopril and titrate as tolerated. HOMERO recommended for further visualization of RA mass. LHC recommended to r/o ischemic CMP. Indications, potential risks and benefits of these procedures reviewed with pt and she is agreeable to proceed with both. Will plan for HOMERO and LHC on 09/02/2017. RML pneumonia. Failed outpatient treatment. Currently patient is on IV abx. - Blood culture negative so far - Patient showed improvement will continue with IV antibiotic COPD exacerbation. - COPD pathway. IV steroids and breathing treatments DM type 2. Accuchecks and SSRI. Blood sugar is well controlled HTN. Normotensive presently off meds DVT prophylaxis; Lovenox Disposition; continue inpatient care. History Interval history: Patient was seen and evaluated this morning, patient was out of 10 oriented, saturating well. Hospitalist Physical - Physical exam Narrative exam: Not in cardiopulmonary distress. The patient appeared well nourished and normally developed. Vital signs as documented. Head exam is unremarkable. No scleral icterus . Neck is without jugular venous distension, thyromegaly, or carotid bruits. Lungs are clear to auscultation. Cardiac exam reveals regular rate and Rhythm. Abdominal exam reveals normal bowel sounds. Extremities are nonedematous. 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 No focal weakness. - Constitutional Vitals: Temp Pulse Resp BP Pulse Ox 98.2 F 86 20 130/86 99 08/29/18 23:20 08/30/18 15:14 08/30/18 15:14 08/29/18 23:20 08/30/18 09:55 General appearance: Present: no acute distress, well-nourished Results - Labs CBC & Chem 7: 08/30/18 10:02 08/30/18 10:02 Labs: Laboratory Last Values WBC 9.1 K/mm3 (4.5-11.0) 08/30/18 10:02 RBC 4.41 M/mm3 (3.65-5.03) 08/30/18 10:02 Hgb 12.9 gm/dl (10.1-14.3) 08/30/18 10:02 Hct 39.5 % (30.3-42.9) 08/30/18 10:02 MCV 90 fl (79-97) 08/30/18 10:02 MCH 29 pg (28-32) 08/30/18 10:02 MCHC 33 % (30-34) 08/30/18 10:02 RDW 14.9 % (13.2-15.2) 08/30/18 10:02 Plt Count 253 K/mm3 (140-440) 08/30/18 10:02 Lymph % (Auto) 23.1 % (13.4-35.0) 08/30/18 10:02 [place] % (Auto) 7.9 % (0.0-7.3) H 08/30/18 10:02 Eos % (Auto) 0.0 % (0.0-4.3) 08/30/18 10:02 Baso % (Auto) 0.4 % (0.0-1.8) 08/30/18 10:02 Lymph # 2.1 K/mm3 (1.2-5.4) 08/30/18 10:02 [place] # 0.7 K/mm3 (0.0-0.8) 08/30/18 10:02 Eos # 0.0 K/mm3 (0.0-0.4) 08/30/18 10:02 Baso # 0.0 K/mm3 (0.0-0.1) 08/30/18 10:02 Seg Neutrophils % 68.6 % (40.0-70.0) 08/30/18 10:02 Seg Neutrophils # 6.3 K/mm3 (1.8-7.7) 08/30/18 10:02 ABG pH 7.414 pH Units (7.350-7.450) 08/29/18 Unknown ABG pCO2 39.6 mm Hg 08/29/18 Unknown ABG pO2 84.6 mm Hg (80.0-90.0) 08/29/18 Unknown ABG HCO3 24.8 mmol/L (20.0-26.0) 08/29/18 Unknown ABG O2 Saturation 96.8 % (95.0-99.0) 08/29/18 Unknown ABG O2 Content 17.2 (0.0-44) 08/29/18 Unknown ABG Base Excess 0.3 mmol/L (-2.0-3.0) 08/29/18 Unknown ABG Hemoglobin 12.8 gm/dl (12.0-16.0) 08/29/18 Unknown ABG Carboxyhemoglobin 1.1 % (0.0-5.0) 08/29/18 Unknown ABG Methemoglobin 0.5 % (0.0-1.5) 08/29/18 Unknown Oxyhemoglobin 95.2 % (95.0-99.0) 08/29/18 Unknown FiO2 21 % 08/29/18 Unknown Sodium 144 mmol/L (137-145) 08/30/18 10:02 Potassium 3.8 mmol/L (3.6-5.0) 08/30/18 10:02 Chloride 104.4 mmol/L (98-107) 08/30/18 10:02 Carbon Dioxide 26 mmol/L (22-30) 08/30/18 10:02 Anion Gap 17 mmol/L 08/30/18 10:02 BUN 6 mg/dL (7-17) L 08/30/18 10:02 Creatinine 0.5 mg/dL (0.7-1.2) L 08/30/18 10:02 Estimated GFR > 60 ml/min 08/30/18 10:02 BUN/Creatinine Ratio 12 % 08/30/18 10:02 Glucose 127 mg/dL (65-100) H 08/30/18 10:02 POC Glucose 145 (70-105) H 08/30/18 12:48 Lactic Acid 0.90 mmol/L (0.7-2.0) 08/28/18 09:32 Calcium 8.8 mg/dL (8.4-10.2) 08/30/18 10:02 Total Bilirubin 0.20 mg/dL (0.1-1.2) 08/27/18 08:01 AST 23 units/L (5-40) 08/27/18 08:01 ALT 22 units/L (7-56) 08/27/18 08:01 Alkaline Phosphatase 121 units/L (35-129) 08/27/18 08:01 Total Creatine Kinase 113 units/L (30-135) 08/29/18 08:19 CK-MB (CK-2) 2.7 ng/mL (0.0-4.0) 08/29/18 08: CK-MB (CK-2) Rel Index 2.3 (0-4) 08/29/18 08:19 Troponin T < 0.010 ng/mL (0.00-0.029) 08/29/18 08:19 Total Protein 7.0 g/dL (6.3-8.2) 08/27/18 08:01 Albumin 4.1 g/dL (3.9-5) 08/27/18 08:01 Albumin/Globulin Ratio 1.4 % 08/27/18 08:01
[2018-08-30] MEDS: LASIX IV SCH (17:54)
[2018-08-30] MEDS: LOPRESSOR PO SCH (21:47)
[2018-08-31 07:42] LABS: Hemolysis Index 0; LDL Cholesterol,Direct 4 mg/dL (50-130)
[2018-08-31] MEDS: NACL 0.9% 1000 ML 1,000 ML IV SCH ×2 (07:56→22:16)
[2018-08-31 08:08] LABS: BUN/Creatinine Ratio 15; Blood Urea Nitrogen 9 mg/dL (7-17); Calcium 9.1 mg/dL (8.4-10.2); Chol/HDL Ratio 3.43 %; HDL Cholesterol 60 mg/dL (40-59)
[2018-08-31] MEDS: DUONEB *Not for PRN Use IH SCH ×3 (08:10→20:18)
[2018-08-31] MEDS: HumuLIN R SUB-Q SCH ×3 (08:57→16:30)
[2018-08-31] MEDS: LOVENOX SUB-Q SCH (11:39)
[2018-08-31] MEDS: ROCEPHIN/NS 2 GM/100 ML 2 GM/100 ML BAG IV SCH (11:39)
[2018-08-31] MEDS: ZITHROMAX 500 MG in NACL 0.9% 250ML 250 ML IV SCH (11:39)
[2018-08-31] MEDS: SOLU-Medrol IV SCH ×2 (11:40→22:14)
[2018-08-31] MEDS: SODIUM CHLORIDE FLUSH SYRINGE 10 ML IV SCH ×2 (11:40→22:20)
[2018-08-31] MEDS: BABY ASPIRIN PO SCH (11:40)
[2018-08-31] MEDS: LOPRESSOR PO SCH ×2 (11:41→22:14)
[2018-08-31] MEDS: ZESTRIL PO SCH (11:41)
[2018-08-31] MEDS: LASIX IV SCH (16:05)
--- NOTE | 2018-08-31 16:33 | Progress Note ---
Assessment and Plan Assessment and plan: sinus tachycardia Cardiology consulted for tachycardia - Echo reviewed - EF 15-20%, LA mild to mod dilated, RV slightly dilated, oval calcified mass adherent to the medial aspect of the RA wall, mod to severe MR, mod pulm HTN with RVSP 56mmHg. CMP is new diagnosis for pt. Initiate lopressor (beta selective - pt with ? COPD exacerbation per primary) and lisinopril and titrate as tolerated. HOMERO recommended for further visualization of RA mass. LHC recommended to r/o ischemic CMP. Indications, potential risks and benefits of these procedures reviewed with pt and she is agreeable to proceed with both. Will plan for HOMERO and LHC on 09/02/2017. RML pneumonia. Failed outpatient treatment. Currently patient is on IV abx. - Blood culture negative so far - Patient showed improvement will continue with IV antibiotic COPD exacerbation. - COPD pathway. IV steroids and breathing treatments DM type 2. Accuchecks and SSRI. Blood sugar is well controlled HTN. Normotensive presently off meds DVT prophylaxis; Lovenox Disposition; continue inpatient care. History Interval history: Patient was seen and evaluated this morning, patient was saturating well. Hospitalist Physical - Physical exam Narrative exam: Not in cardiopulmonary distress. The patient appeared well nourished and normally developed. Vital signs as documented. Head exam is unremarkable. No scleral icterus . Neck is without jugular venous distension, thyromegaly, or carotid bruits. Lungs are clear to auscultation. Cardiac exam reveals regular rate and Rhythm. Abdominal exam reveals normal bowel sounds. Extremities are nonedematous. 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 No focal weakness. - Constitutional Vitals: Temp Pulse Resp BP Pulse Ox 98.3 F 88 20 137/99 97 08/31/18 09:28 08/31/18 13:51 08/31/18 13:51 08/31/18 12:08 08/31/18 13:08 General appearance: Present: no acute distress, well-nourished Results - Labs CBC & Chem 7: 08/30/18 10:02 08/31/18 04:22 Labs: Laboratory Last Values WBC 9.1 K/mm3 (4.5-11.0) 08/30/18 10:02 RBC 4.41 M/mm3 (3.65-5.03) 08/30/18 10:02 Hgb 12.9 gm/dl (10.1-14.3) 08/30/18 10:02 Hct 39.5 % (30.3-42.9) 08/30/18 10:02 MCV 90 fl (79-97) 08/30/18 10:02 MCH 29 pg (28-32) 08/30/18 10:02 MCHC 33 % (30-34) 08/30/18 10:02 RDW 14.9 % (13.2-15.2) 08/30/18 10:02 Plt Count 253 K/mm3 (140-440) 08/30/18 10:02 Lymph % (Auto) 23.1 % (13.4-35.0) 08/30/18 10:02 [place] % (Auto) 7.9 % (0.0-7.3) H 08/30/18 10:02 Eos % (Auto) 0.0 % (0.0-4.3) 08/30/18 10:02 Baso % (Auto) 0.4 % (0.0-1.8) 08/30/18 10:02 Lymph # 2.1 K/mm3 (1.2-5.4) 08/30/18 10:02 [place] # 0.7 K/mm3 (0.0-0.8) 08/30/18 10:02 Eos # 0.0 K/mm3 (0.0-0.4) 08/30/18 10:02 Baso # 0.0 K/mm3 (0.0-0.1) 08/30/18 10:02 Seg Neutrophils % 68.6 % (40.0-70.0) 08/30/18 10:02 Seg Neutrophils # 6.3 K/mm3 (1.8-7.7) 08/30/18 10:02 ABG pH 7.414 pH Units (7.350-7.450) 08/29/18 Unknown ABG pCO2 39.6 mm Hg 08/29/18 Unknown ABG pO2 84.6 mm Hg (80.0-90.0) 08/29/18 Unknown ABG HCO3 24.8 mmol/L (20.0-26.0) 08/29/18 Unknown ABG O2 Saturation 96.8 % (95.0-99.0) 08/29/18 Unknown ABG O2 Content 17.2 (0.0-44) 08/29/18 Unknown ABG Base Excess 0.3 mmol/L (-2.0-3.0) 08/29/18 Unknown ABG Hemoglobin 12.8 gm/dl (12.0-16.0) 08/29/18 Unknown ABG Carboxyhemoglobin 1.1 % (0.0-5.0) 08/29/18 Unknown ABG Methemoglobin 0.5 % (0.0-1.5) 08/29/18 Unknown Oxyhemoglobin 95.2 % (95.0-99.0) 08/29/18 Unknown FiO2 21 % 08/29/18 Unknown Sodium 142 mmol/L (137-145) 08/31/18 04:22 Potassium 3.7 mmol/L (3.6-5.0) 08/31/18 04:22 Chloride 60.0 mmol/L (98-107) L 08/31/18 04:22 Carbon Dioxide 26 mmol/L (22-30) 08/31/18 04:22 Anion Gap 60 mmol/L 08/31/18 04:22 BUN 9 mg/dL (7-17) 08/31/18 04:22 Creatinine 0.6 mg/dL (0.7-1.2) L 08/31/18 04:22 Estimated GFR > 60 ml/min 08/31/18 04:22 BUN/Creatinine Ratio 15 % 08/31/18 04:22 Glucose 146 mg/dL (65-100) H 08/31/18 04:22 POC Glucose 108 (70-105) H 08/31/18 11:18 Lactic Acid 0.90 mmol/L (0.7-2.0) 08/28/18 09:32 Calcium 9.1 mg/dL (8.4-10.2) 08/31/18 04:22 Total Bilirubin 0.20 mg/dL (0.1-1.2) 08/27/18 08:01 AST 23 units/L (5-40) 08/27/18 08:01 ALT 22 units/L (7-56) 08/27/18 08:01 Alkaline Phosphatase 121 units/L (35-129) 08/27/18 08:01 Total Creatine Kinase 113 units/L (30-135) 08/29/18 08:19 CK-MB (CK-2) 2.7 ng/mL (0.0-4.0) 08/29/18 08:19 CK-MB (CK-2) Rel Index 2.3 (0-4) 08/29/18 08:19 Troponin T < 0.010 ng/mL (0.00-0.029) 08/29/18 08:19 Total Protein 7.0 g/dL (6.3-8.2) 08/27/18 08:01 Albumin 4.1 g/dL (3.9-5) 08/27/18 08:01 Albumin/Globulin Ratio 1.4 % 08/27/18 08:01 Triglycerides < 9 mg/dL (2-149) 08/31/18 04:22 Cholesterol < 4 mg/dL (50-199) L 08/31/18 04:22 LDL Cholesterol Direct 4 mg/dL (50-130) L 08/31/18 04:22 HDL Cholesterol 60 mg/dL (40-59) H 08/31/18 04:22 Cholesterol/HDL Ratio 3.43 % 08/31/18 04:22
--- NOTE | 2018-08-31 18:37 | Progress Note ---
Assessment and Plan sinus tachycardia Cardiomyopathy EF 15-20%//acute systolic heart failure new diagnosis Continue metoprolol 25 BID/Zestril 5 QDAY lasix 40 IV QDAY LHC recommended to r/o ischemic CMP Right atrial mass HOMERO recommended for further visualization of RA mass. Will plan for HOMERO and LHC on 09/02/2017. RML pneumonia. COPD exacerbation. DM type 2. HTN Subjective Date of service: 08/31/18 Principal diagnosis: PNA; HF Interval history: Patient sitting up in bed without complaints Objective Vital Signs Temp Pulse Pulse Pulse Resp Resp Resp 08/31/18 13:51 88 20 08/31/18 13:44 91 H 18 08/31/18 13:08 08/31/18 12:08 98 H 08/31/18 11:41 81 08/31/18 10:00 80 20 08/31/18 09:28 98.3 F 18 08/31/18 08:21 85 19 08/31/18 08:10 78 16 08/31/18 04:12 98.4 F 81 18 08/30/18 23:36 98.3 F 73 18 08/30/18 21:51 94 H 14 08/30/18 21:47 83 08/30/18 21:35 08/30/18 21:33 91 H 13 08/30/18 20:49 18 18 08/30/18 20:26 98.4 F 83 18 BP Pulse Ox 08/31/18 13:51 08/31/18 13:44 08/31/18 13:08 97 08/31/18 12:08 137/99 97 08/31/18 11:41 145/93 08/31/18 10:00 98 08/31/18 09:28 145/93 08/31/18 08:21 08/31/18 08:10 08/31/18 04:12 115/63 98 08/30/18 23:36 120/74 97 08/30/18 21:51 08/30/18 21:47 120/72 08/30/18 21:35 99 08/30/18 21:33 08/30/18 20:49 08/30/18 20:26 120/72 99 - Physical Examination General: No Apparent Distress HEENT: Positive: PERRL, Normocephaly, Mucus Membranes Moist Neck: Positive: neck supple, trachea midline Cardiac: Positive: Reg Rate and Rhythm Lungs: Positive: Normal Exam, clear to auscultation Neuro: Positive: Grossly Intact Abdomen: Positive: Soft. Negative: Tender Skin: Negative: Rash, Wound Musculoskeletal: No Pain Extremities: Absent: edema - Labs and Meds Lipids 08/31/18 Range/Units 04:22 Triglycerides < 9 (2-149) mg/dL Cholesterol < 4 L (50-199) mg/dL HDL Cholesterol 60 H (40-59) mg/dL Cholesterol/HDL Ratio 3.43 % Comprehensive Metabolic Panel 08/31/18 Range/Units 04:22 Sodium 142 (137-145) mmol/L Potassium 3.7 (3.6-5.0) mmol/L Chloride 60.0 L (98-107) mmol/L Carbon Dioxide 26 (22-30) mmol/L BUN 9 (7-17) mg/dL Creatinine 0.6 L (0.7-1.2) mg/dL Glucose 146 H (65-100) mg/dL Calcium 9.1 (8.4-10.2) mg/dL - Imaging and Cardiology EKG: report reviewed, image reviewed Echo: report reviewed (ECHO 09/14: EF 15-20%, mass RA medial wall, pul HTN, mod-sev MR)
[2018-09-01] MEDS: HumuLIN R SUB-Q SCH ×5 (05:23→22:30)
[2018-09-01] MEDS: DUONEB *Not for PRN Use IH SCH ×3 (07:52→20:31)
[2018-09-01] MEDS: LOVENOX SUB-Q SCH (10:56)
[2018-09-01] MEDS: LASIX IV SCH (10:56)
[2018-09-01] MEDS: SOLU-Medrol IV SCH ×2 (10:56→22:34)
[2018-09-01] MEDS: SODIUM CHLORIDE FLUSH SYRINGE 10 ML IV SCH ×2 (10:56→22:34)
[2018-09-01] MEDS: BABY ASPIRIN PO SCH (10:56)
[2018-09-01] MEDS: ZESTRIL PO SCH (10:57)
[2018-09-01] MEDS: LOPRESSOR PO SCH ×2 (10:58→22:34)
[2018-09-01] MEDS: ROCEPHIN/NS 2 GM/100 ML 2 GM/100 ML BAG IV SCH (11:26)
[2018-09-01] MEDS ORDERED: NACL 0.9% 500 ML 500 ML IV SCH (12:00)
[2018-09-01] MEDS: ZITHROMAX 500 MG in NACL 0.9% 250ML 250 ML IV SCH (12:27)
[2018-09-01] MEDS: NACL 0.9% 1000 ML 1,000 ML IV SCH (12:55)
--- NOTE | 2018-09-01 13:55 | Progress Note ---
Assessment and Plan sinus tachycardia Cardiomyopathy EF 15-20%//acute systolic heart failure new diagnosis Continue metoprolol 25 BID/Zestril 5 QDAY consider PO lasix LHC recommended to r/o ischemic CMP Right atrial mass HOMERO recommended for further visualization of RA mass. Will plan for HOMERO and LHC on 09/02/2017. RML pneumonia. COPD exacerbation. DM type 2. HTN Subjective Date of service: 09/01/18 Principal diagnosis: PNA; HF Interval history: Patient sitting up in bed without complaints Objective Vital Signs Temp Pulse Pulse Pulse Resp Resp BP 09/01/18 10:58 96 H 151/98 09/01/18 10:57 96 H 151/98 09/01/18 10:00 88 20 09/01/18 08:24 98.4 F 96 H 20 151/98 09/01/18 07:52 86 18 09/01/18 07:45 84 18 09/01/18 04:00 98.0 F 84 18 135/67 09/01/18 00:20 98.0 F 77 18 132/87 08/31/18 20:49 91 H 20 08/31/18 20:19 08/31/18 20:00 85 15 08/31/18 19:22 98.0 F 89 18 130/87 08/31/18 16:56 98.2 F 88 18 129/85 Pulse Ox 09/01/18 10:58 09/01/18 10:57 09/01/18 10:00 97 09/01/18 08:24 97 09/01/18 07:52 09/01/18 07:45 09/01/18 04:00 97 09/01/18 00:20 97 08/31/18 20:49 08/31/18 20:19 97 08/31/18 20:00 08/31/18 19:22 95 08/31/18 16:56 98 - Physical Examination General: No Apparent Distress HEENT: Positive: PERRL, Normocephaly, Mucus Membranes Moist Neck: Positive: neck supple, trachea midline, thyromegaly Lungs: Positive: Normal Exam, Normal Breath Sounds Neuro: Positive: Grossly Intact Abdomen: Positive: Soft. Negative: Tender Skin: Negative: Rash, Wound Musculoskeletal: No Pain Extremities: Absent: edema - Imaging and Cardiology EKG: report reviewed, image reviewed Echo: report reviewed (ECHO 09/14: EF 15-20%, mass RA medial wall, pul HTN, mod- sev MR)
--- NOTE | 2018-09-01 16:31 | Progress Note ---
Assessment and Plan Assessment and plan: sinus tachycardia Cardiology consulted for tachycardia - Echo reviewed - EF 15-20%, LA mild to mod dilated, RV slightly dilated, oval calcified mass adherent to the medial aspect of the RA wall, mod to severe MR, mod pulm HTN with RVSP 56mmHg. CMP is new diagnosis for pt. Initiate lopressor (beta selective - pt with ? COPD exacerbation per primary) and lisinopril and titrate as tolerated. HOMERO recommended for further visualization of RA mass. LHC recommended to r/o ischemic CMP. Indications, potential risks and benefits of these procedures reviewed with pt and she is agreeable to proceed with both. Will plan for HOMERO and LHC on 09/02/2017. RML pneumonia. Failed outpatient treatment. Currently patient is on IV abx. - Blood culture negative so far - Patient showed improvement will continue with IV antibiotic COPD exacerbation. - COPD pathway. IV steroids and breathing treatments DM type 2. Accuchecks and SSRI. Blood sugar is well controlled HTN. Normotensive presently off meds DVT prophylaxis; Lovenox Disposition; continue inpatient care. History Interval history: Patient was seen and evaluated this morning, patient was saturating well. Hospitalist Physical - Physical exam Narrative exam: Not in cardiopulmonary distress. The patient appeared well nourished and normally developed. Vital signs as documented. Head exam is unremarkable. No scleral icterus . Neck is without jugular venous distension, thyromegaly, or carotid bruits. Lungs are clear to auscultation. Cardiac exam reveals regular rate and Rhythm. Abdominal exam reveals normal bowel sounds. Extremities are nonedematous. ASSISTANT MANAGER: Alert and oriented 3. No focal weakness. - Constitutional Vitals: Temp Pulse Resp BP Pulse Ox 98.4 F 82 16 151/98 97 09/01/18 08:24 09/01/18 14:20 09/01/18 14:20 09/01/18 10:58 09/01/18 10:00 General appearance: Present: no acute distress, well-nourished Results - Labs CBC & Chem 7: 08/30/18 10:02 08/31/18 04:22 Labs: Laboratory Last Values WBC 9.1 K/mm3 (4.5-11.0) 08/30/18 10:02 RBC 4.41 M/mm3 (3.65-5.03) 08/30/18 10:02 Hgb 12.9 gm/dl (10.1-14.3) 08/30/18 10:02 Hct 39.5 % (30.3-42.9) 08/30/18 10:02 MCV 90 fl (79-97) 08/30/18 10:02 MCH 29 pg (28-32) 08/30/18 10:02 MCHC 33 % (30-34) 08/30/18 10:02 RDW 14.9 % (13.2-15.2) 08/30/18 10:02 Plt Count 253 K/mm3 (140-440) 08/30/18 10:02 Lymph % (Auto) 23.1 % (13.4-35.0) 08/30/18 10:02 [place] % (Auto) 7.9 % (0.0-7.3) H 08/30/18 10:02 Eos % (Auto) 0.0 % (0.0-4.3) 08/30/18 10:02 Baso % (Auto) 0.4 % (0.0-1.8) 08/30/18 10:02 Lymph # 2.1 K/mm3 (1.2-5.4) 08/30/18 10:02 [place] # 0.7 K/mm3 (0.0-0.8) 08/30/18 10:02 Eos # 0.0 K/mm3 (0.0-0.4) 08/30/18 10:02 Baso # 0.0 K/mm3 (0.0-0.1) 08/30/18 10:02 Seg Neutrophils % 68.6 % (40.0-70.0) 08/30/18 10:02 Seg Neutrophils # 6.3 K/mm3 (1.8-7.7) 08/30/18 10:02 ABG pH 7.414 pH Units (7.350-7.450) 08/29/18 Unknown ABG pCO2 39.6 mm Hg 08/29/18 Unknown ABG pO2 84.6 mm Hg (80.0-90.0) 08/29/18 Unknown ABG HCO3 24.8 mmol/L (20.0-26.0) 08/29/18 Unknown ABG O2 Saturation 96.8 % (95.0-99.0) 08/29/18 Unknown ABG O2 Content 17.2 (0.0-44) 08/29/18 Unknown ABG Base Excess 0.3 mmol/L (-2.0-3.0) 08/29/18 Unknown ABG Hemoglobin 12.8 gm/dl (12.0-16.0) 08/29/18 Unknown ABG Carboxyhemoglobin 1.1 % (0.0-5.0) 08/29/18 Unknown ABG Methemoglobin 0.5 % (0.0-1.5) 08/29/18 Unknown Oxyhemoglobin 95.2 % (95.0-99.0) 08/29/18 Unknown FiO2 21 % 08/29/18 Unknown Sodium 142 mmol/L (137-145) 08/31/18 04:22 Potassium 3.7 mmol/L (3.6-5.0) 08/31/18 04:22 Chloride 60.0 mmol/L (98-107) L 08/31/18 04:22 Carbon Dioxide 26 mmol/L (22-30) 08/31/18 04:22 Anion Gap 60 mmol/L 08/31/18 04:22 BUN 9 mg/dL (7-17) 08/31/18 04:22 Creatinine 0.6 mg/dL (0.7-1.2) L 08/31/18 04:22 Estimated GFR > 60 ml/min 08/31/18 04:22 BUN/Creatinine Ratio 15 % 08/31/18 04:22 Glucose 146 mg/dL (65-100) H 08/31/18 04:22 POC Glucose 141 (70-105) H 09/01/18 11:01 Lactic Acid 0.90 mmol/L (0.7-2.0) 08/28/18 09:32 Calcium 9.1 mg/dL (8.4-10.2) 08/31/18 04:22 Total Bilirubin 0.20 mg/dL (0.1-1.2) 08/27/18 08:01 AST 23 units/L (5-40) 08/27/18 08:01 ALT 22 units/L (7-56) 08/27/18 08:01 Alkaline Phosphatase 121 units/L (35-129) 08/27/18 08:01 Total Creatine Kinase 113 units/L (30-135) 08/29/18 08:19 CK-MB (CK-2) 2.7 ng/mL (0.0-4.0) 08/29/18 08:19 CK-MB (CK-2) Rel Index 2.3 (0-4) 08/29/18 08:19 Troponin T < 0.010 ng/mL (0.00-0.029) 08/29/18 08:19 Total Protein 7.0 g/dL (6.3-8.2) 08/27/18 08:01 Albumin 4.1 g/dL (3.9-5) 08/27/18 08:01 Albumin/Globulin Ratio 1.4 % 08/27/18 08:01 Triglycerides < 9 mg/dL (2-149) 08/31/18 04:22 Cholesterol < 4 mg/dL (50-199) L 08/31/18 04:22 LDL Cholesterol Direct 4 mg/dL (50-130) L 08/31/18 04:22 HDL Cholesterol 60 mg/dL (40-59) H 08/31/18 04:22 Cholesterol/HDL Ratio 3.43 % 08/31/18 04:22
[2018-09-02] MEDS: NACL 0.9% 1000 ML 1,000 ML IV SCH (03:34)
[2018-09-02 05:02] LABS: BUN/Creatinine Ratio 20; Blood Urea Nitrogen 12 mg/dL (7-17); Calcium 8.4 mg/dL (8.4-10.2); Hemolysis Index 23
[2018-09-02 05:31] LABS: INR 0.92 (0.87-1.13); Partial Thromboplastin Time 20.8 Sec. (24.2-36.6)
[2018-09-02] MEDS ORDERED: DIPRIVAN 10 MG/ML IV ONE (08:02)
[2018-09-02] MEDS ORDERED: VERSED ONE (08:02)
[2018-09-02] MEDS ORDERED: XYLOCAINE MPF 2% ONE (08:03)
[2018-09-02] MEDS ORDERED: NACL 0.9% 1000 ML 1,000 ML ONE (08:13)
[2018-09-02] MEDS ORDERED: HURRICAINE ONE 20% TOPICAL SPRAY MM (08:14)
[2018-09-02] MEDS: HumuLIN R SUB-Q SCH ×4 (08:24→22:23)
[2018-09-02] MEDS ORDERED: CALAN ONE (08:46)
[2018-09-02] MEDS ORDERED: XYLOCAINE 2% INFILTRATI ONE (08:46)
[2018-09-02] MEDS ORDERED: HEPARIN/NS 5000 UNIT/500ML(CATH LAB) 1,000 ML IR ONE (08:46)
[2018-09-02] MEDS ORDERED: HEPARIN 10,000 UNITS/10 ML ONE (08:46)
[2018-09-02] MEDS ORDERED: NITROGLYCERIN SYRINGE 3 ML ONE (08:47)
[2018-09-02] MEDS ORDERED: HURRICAINE ONE 20% TOPICAL SPRAY MM NR (09:00)
--- NOTE | 2018-09-02 09:35 | Anesthesia Day of Surgery ---
Anesthesia Day of Surgery - Day of Surgery Patient Examined: Yes Patient H&P Reviewed: Yes Patient is NPO: Yes
--- NOTE | 2018-09-02 09:35 | Anesthesia Consultation ---
Anesthesia Consult and Med Hx Date of service: 09/02/18 - Airway Anesthetic Teeth Evaluation: Poor, Partials Mental/Hyoid Distance: Adequate Mallampati Class: Class III Intubation Access Assessment: Probably Good - Pulmonary Exam CTA: No (productive cough) - Cardiac Exam Cardiac Exam: RRR - Pre-Operative Health Status ASA Pre-Surgery Classification: ASA3 Proposed Anesthetic Plan: General - Pulmonary Home Oxygen Therapy: No - Cardiovascular System Hx Hypertension: Yes (hypercholesterolemia also) Hx Valvular Heart Disease: Yes (EF ~20%) - Endocrine Hx Non-Insulin Dependent Diabetes: Yes
--- NOTE | 2018-09-02 10:48 | Cardiac Catherization Report ---
LEFT HEART CATHETERIZATION CLINICAL INFORMATION: This is a 58-year-old female with new onset congestive heart failure, hypertension, diabetes, cholesterol, who is here for left heart cath to rule out coronary artery disease as the cause of cardiomyopathy. Left heart catheterization done via the right radial artery, sterile technique, local anesthesia, 6-Turkmen radial sheath inserted. Left system engaged with JL3.5 catheter. Left main is large and patent, bifurcates into large LAD that is patent from proximally and distally, wrap around LAD. Small diagonal 1 through 3 are patent. Circumflex is a large dominant vessel that is patent. OM1 and OM2 are medium caliber vessels, patent. Left posterior descending is a small to medium caliber vessel that is patent. RCA engaged with JR4 is a small nondominant vessel, patent. LV gram done in THAI and AGUILERA shows vktzxckn-de-ancors LV dysfunction, EF 25-30%. LVEDP of 40 mmHg, LV is 138, aortic is 130/89. No gradient across aortic valve on pullback. 5-Turkmen catheters were taken over guidewire, 6-Turkmen radial sheath was discontinued, radial band applied. No hematoma, no bleeding. SUMMARY: 1. Normal coronaries, left dominant system. 2. Moderate to severe LV dysfunction. 3. Continue medical management for nonischemic cardiomyopathy. The patient tolerated the procedure well. [facility]# [id number] AILEEN/GEMMA
--- NOTE | 2018-09-02 10:48 | Progress Note ---
Assessment and Plan acute respiratory failure acute systolic heart failure severe mr htn chol dm abnl ekg - lbbb rec: cont bid iv lasix today and change to po lasix 40mg in am and cont lopressor and christian and add aldacotone and discharge in am and followup with [facility] primary care Subjective Date of service: 09/02/18 Principal diagnosis: PNA; HF Interval history: sob has improved Objective Vital Signs Temp Temp Temp Pulse Pulse Pulse Pulse 09/02/18 10:43 98.9 F 80 09/02/18 09:10 98.5 F 88 09/02/18 08:37 98.9 F 72 09/02/18 04:32 98.3 F 78 09/02/18 00:10 98.0 F 09/01/18 22:34 80 09/01/18 20:14 98.3 F 81 09/01/18 20:00 86 09/01/18 15:51 98.4 F 92 H 09/01/18 14:20 82 09/01/18 14:15 82 09/01/18 11:00 98.3 F 95 H 09/01/18 10:58 96 H 09/01/18 10:57 96 H Resp Resp Resp Resp BP BP BP 09/02/18 10:43 14 141/86 09/02/18 09:10 16 130/86 09/02/18 08:37 23 140/92 09/02/18 04:32 17 130/82 09/02/18 00:10 17 133/87 09/01/18 22:34 143/90 09/01/18 20:14 17 143/90 09/01/18 20:00 09/01/18 15:51 20 139/88 09/01/18 14:20 16 09/01/18 14:15 16 09/01/18 11:00 20 133/92 09/01/18 10:58 151/98 09/01/18 10:57 151/98 Pulse Ox Pulse Ox Pulse Ox 09/02/18 10:43 99 09/02/18 09:10 96 09/02/18 08:37 98 09/02/18 04:32 92 09/02/18 00:10 09/01/18 22:34 09/01/18 20:14 98 09/01/18 20:00 09/01/18 15:51 97 09/01/18 14:20 09/01/18 14:15 09/01/18 11:00 96 09/01/18 10:58 09/01/18 10:57 - Physical Examination General: No Apparent Distress HEENT: Positive: PERRL, Normocephaly, Mucus Membranes Moist Neck: Positive: neck supple, trachea midline, thyromegaly Cardiac: Positive: Reg Rate and Rhythm Lungs: Positive: clear to auscultation Neuro: Positive: Grossly Intact Abdomen: Positive: Soft. Negative: Tender Skin: Negative: Rash, Wound Musculoskeletal: No Pain Extremities: Absent: edema - Labs and Meds Coagulation 09/02/18 Range/Units 04:41 PT 12.8 (12.2-14.9) Sec. INR 0.92 (0.87-1.13) APTT 20.8 L (24.2-36.6) Sec. Comprehensive Metabolic Panel 09/02/18 Range/Units 04:41 Sodium 142 (137-145) mmol/L Potassium 3.9 (3.6-5.0) mmol/L Chloride 104.3 (98-107) mmol/L Carbon Dioxide 28 (22-30) mmol/L BUN 12 (7-17) mg/dL Creatinine 0.6 L (0.7-1.2) mg/dL Glucose 160 H (65-100) mg/dL Calcium 8.4 (8.4-10.2) mg/dL - Imaging and Cardiology EKG: report reviewed, image reviewed Echo: report reviewed (ECHO 09/14: EF 15-20%, mass RA medial wall, pul HTN, mod- sev MR) HOMERO: report reviewed (calcium of chordae vs calcfication of annulus, no vegatation or thrombus no pfo or asd ) Cardiac cath: report reviewed (normal coronaries and left dominant system lvedp 40 mm hg) - Telemetry EKG Rhythm: Sinus Rhythm
[2018-09-02] MEDS: DUONEB *Not for PRN Use IH SCH ×3 (11:09→19:22)
--- NOTE | 2018-09-02 11:17 | Post Anesthesia Evaluation ---
- Post Anesthesia Evaluation Patient Participated: Yes Airway Patent: Yes Stable Respiratory Function: Yes Nausea/Vomiting: No Temp > 96.8F: Yes Pain Manageable: Yes Adequeate Hydration: Yes Anesthesia Complications: No
[2018-09-02] MEDS: LOPRESSOR PO SCH ×2 (13:25→22:22)
[2018-09-02] MEDS: SODIUM CHLORIDE FLUSH SYRINGE 10 ML IV SCH ×2 (13:26→22:23)
[2018-09-02] MEDS: ZESTRIL PO SCH (13:26)
[2018-09-02] MEDS: LOVENOX SUB-Q SCH (13:26)
[2018-09-02] MEDS: ROCEPHIN/NS 2 GM/100 ML 2 GM/100 ML BAG IV SCH (13:27)
[2018-09-02] MEDS: ZITHROMAX 500 MG in NACL 0.9% 250ML 250 ML IV SCH (13:27)
[2018-09-02] MEDS: LASIX IV SCH ×2 (13:28→22:24)
[2018-09-02] MEDS: SOLU-Medrol IV SCH ×2 (13:35→22:23)
--- NOTE | 2018-09-02 15:58 | Progress Note ---
Assessment and Plan Assessment and plan: sinus tachycardia Cardiology consulted for tachycardia - Echo reviewed - EF 15-20%, LA mild to mod dilated, RV slightly dilated, oval calcified mass adherent to the medial aspect of the RA wall, mod to severe MR, mod pulm HTN with RVSP 56mmHg. CMP is new diagnosis for pt. Initiate lopressor and lisinopril and titrate as tolerated. HOMERO and Left heart cath was donethis morning and no thrombus, clean coronaries and discussed with Dr Tavares and recommend to discharge in AM with appropriate medications. RML pneumonia. Failed outpatient treatment. Currently patient is on IV abx. - Blood culture negative so far - Patient showed improvement will continue with IV antibiotic COPD exacerbation. - COPD pathway. IV steroids and breathing treatments DM type 2. Accuchecks and SSRI. Blood sugar is well controlled HTN. Normotensive presently off meds DVT prophylaxis; Lovenox Disposition; continue inpatient care. Discharge in AM per cardiology. History Interval history: Patient was seen and evaluated this morning, patient was saturating well. S/P cath and HOMERO. Hospitalist Physical - Physical exam Narrative exam: Not in cardiopulmonary distress. The patient appeared well nourished and normally developed. Vital signs as documented. Head exam is unremarkable. No scleral icterus . Neck is without jugular venous distension, thyromegaly, or carotid bruits. Lungs are clear to auscultation. Cardiac exam reveals regular rate and Rhythm. Abdominal exam reveals normal bowel sounds. Extremities are nonedematous. SUPPLY CHAIN PLANNER: Alert and oriented 3. No focal weakness. - Constitutional Vitals: Temp Pulse Resp BP Pulse Ox 98.9 F 78 18 142/91 98 09/02/18 10:45 09/02/18 14:50 09/02/18 14:50 09/02/18 13:25 09/02/18 13:46 General appearance: Present: no acute distress, well-nourished Results - Labs CBC & Chem 7: 08/30/18 10:02 09/02/18 04:41 Labs: Laboratory Last Values WBC 9.1 K/mm3 (4.5-11.0) 08/30/18 10:02 RBC 4.41 M/mm3 (3.65-5.03) 08/30/18 10:02 Hgb 12.9 gm/dl (10.1-14.3) 08/30/18 10:02 Hct 39.5 % (30.3-42.9) 08/30/18 10:02 MCV 90 fl (79-97) 08/30/18 10:02 MCH 29 pg (28-32) 08/30/18 10:02 MCHC 33 % (30-34) 08/30/18 10:02 RDW 14.9 % (13.2-15.2) 08/30/18 10:02 Plt Count 253 K/mm3 (140-440) 08/30/18 10:02 Lymph % (Auto) 23.1 % (13.4-35.0) 08/30/18 10:02 [place] % (Auto) 7.9 % (0.0-7.3) H 08/30/18 10:02 Eos % (Auto) 0.0 % (0.0-4.3) 08/30/18 10:02 Baso % (Auto) 0.4 % (0.0-1.8) 08/30/18 10:02 Lymph # 2.1 K/mm3 (1.2-5.4) 08/30/18 10:02 [place] # 0.7 K/mm3 (0.0-0.8) 08/30/18 10:02 Eos # 0.0 K/mm3 (0.0-0.4) 08/30/18 10:02 Baso # 0.0 K/mm3 (0.0-0.1) 08/30/18 10:02 Seg Neutrophils % 68.6 % (40.0-70.0) 08/30/18 10:02 Seg Neutrophils # 6.3 K/mm3 (1.8-7.7) 08/30/18 10:02 PT 12.8 Sec. (12.2-14.9) 09/02/18 04:41 INR 0.92 (0.87-1.13) 09/02/18 04:41 APTT 20.8 Sec. (24.2-36.6) L 09/02/18 04:41 ABG pH 7.414 pH Units (7.350-7.450) 08/29/18 Unknown ABG pCO2 39.6 mm Hg 08/29/18 Unknown ABG pO2 84.6 mm Hg (80.0-90.0) 08/29/18 Unknown ABG HCO3 24.8 mmol/L (20.0-26.0) 08/29/18 Unknown ABG O2 Saturation 96.8 % (95.0-99.0) 08/29/18 Unknown ABG O2 Content 17.2 (0.0-44) 08/29/18 Unknown ABG Base Excess 0.3 mmol/L (-2.0-3.0) 08/29/18 Unknown ABG Hemoglobin 12.8 gm/dl (12.0-16.0) 08/29/18 Unknown ABG Carboxyhemoglobin 1.1 % (0.0-5.0) 08/29/18 Unknown ABG Methemoglobin 0.5 % (0.0-1.5) 08/29/18 Unknown Oxyhemoglobin 95.2 % (95.0-99.0) 08/29/18 Unknown FiO2 21 % 08/29/18 Unknown Sodium 142 mmol/L (137-145) 09/02/18 04:41 Potassium 3.9 mmol/L (3.6-5.0) 09/02/18 04:41 Chloride 104.3 mmol/L (98-107) 09/02/18 04:41 Carbon Dioxide 28 mmol/L (22-30) 09/02/18 04:41 Anion Gap 14 mmol/L 09/02/18 04:41 BUN 12 mg/dL (7-17) 09/02/18 04:41 Creatinine 0.6 mg/dL (0.7-1.2) L 09/02/18 04:41 Estimated GFR > 60 ml/min 09/02/18 04:41 BUN/Creatinine Ratio 20 % 09/02/18 04:41 Glucose 160 mg/dL (65-100) H 09/02/18 04:41 POC Glucose 114 (70-105) H 09/02/18 06:05 Lactic Acid 0.90 mmol/L (0.7-2.0) 08/28/18 09:32 Calcium 8.4 mg/dL (8.4-10.2) 09/02/18 04:41 Total Bilirubin 0.20 mg/dL (0.1-1.2) 08/27/18 08:01 AST 23 units/L (5-40) 08/27/18 08:01 ALT 22 units/L (7-56) 08/27/18 08:01 Alkaline Phosphatase 121 units/L (35-129) 08/27/18 08:01 Total Creatine Kinase 113 units/L (30-135) 08/29/18 08:19 CK-MB (CK-2) 2.7 ng/mL (0.0-4.0) 08/29/18 08:19 CK-MB (CK-2) Rel Index 2.3 (0-4) 08/29/18 08:19 Troponin T < 0.010 ng/mL (0.00-0.029) 08/29/18 08:19 Total Protein 7.0 g/dL (6.3-8.2) 08/27/18 08:01 Albumin 4.1 g/dL (3.9-5) 08/27/18 08:01 Albumin/Globulin Ratio 1.4 % 08/27/18 08:01 Triglycerides < 9 mg/dL (2-149) 08/31/18 04:22 Cholesterol < 4 mg/dL (50-199) L 08/31/18 04:22 LDL Cholesterol Direct 4 mg/dL (50-130) L 08/31/18 04:22 HDL Cholesterol 60 mg/dL (40-59) H 08/31/18 04:22 Cholesterol/HDL Ratio 3.43 % 08/31/18 04:22
[2018-09-02] MEDS: BABY ASPIRIN PO SCH (16:45)
[2018-09-03] MEDS: ALDACTONE PO SCH ×2 (01:29→10:07)
[2018-09-03 06:23] LABS: Hematocrit 40.9 % (30.3-42.9); Hemoglobin 13.5 gm/dl (10.1-14.3); Mean Corpuscular HGB Conc 33 % (30-34); Mean Corpuscular Volume 90 fl (79-97); Platelet Count 221 K/mm3 (140-440); Red Blood Count 4.54 M/mm3 (3.65-5.03); Red Cell Distribution Width 14.5 % (13.2-15.2)
[2018-09-03 06:24] LABS: Basophils % (Auto) 0.2 % (0.0-1.8); Lymphocytes # (Auto) 0.8 K/mm3 (1.2-5.4); Lymphocytes % (Auto) 10.5 % (13.4-35.0); Monocytes # (Auto) 0.4 K/mm3 (0.0-0.8); Monocytes % (Auto) 5.2 % (0.0-7.3)
[2018-09-03] MEDS: LASIX IV SCH (06:29)
[2018-09-03 06:50] LABS: BUN/Creatinine Ratio 21; Blood Urea Nitrogen 15 mg/dL (7-17); Calcium 8.8 mg/dL (8.4-10.2); Hemolysis Index 14
[2018-09-03 07:41] VITALS: BP 109/63
[2018-09-03] MEDS: DUONEB *Not for PRN Use IH SCH ×2 (08:17→14:22)
--- NOTE | 2018-09-03 09:01 | Discharge Summary ---
Providers - Providers Date of Admission: 08/27/18 10:22 Date of discharge: 09/03/18 Attending physician: PRASHANT JARRELL 08/29/18 08:28 Consult to Physician [CONS] Stat Comment: CONSULT - COMPLETED Consulting Provider: JUVENTINO RIVAS Physician Instructions: Reason For Exam: tachycardia 09/02/18 10:43 Consult to Cardiac Rehabilitation [CONS] Routine Reason For Exam: Cardiac Rehab Evaluation Primary care physician: HARP REGULATOR Hospitalization Reason for admission: rml pna Condition: Critical Hospital course: This is a 58-year-old female who presented through the [facility] with diagnosis of a right middle lobe pneumonia and COPD exacerbation. Blood cultures remain negative. Patient received IV antibiotics, IV steroids and breathing treatments. Patient had further complications during hospital stay with persistent sinus tachycardia. Patient also had abnormal EKG with left bundle branch block. Cardiology was consulted and patient underwent echocardiogram which revealed EF 15-20%, LA mild to mod dilated, RV slightly dilated, oval calcified mass adherent to the medial aspect of the RA wall, mod to severe MR, mod pulm HTN with RVSP 56mmHg. the patient was felt to have a cardiomyopathy which is new diagnosis. Therefore, cardiology recommended HOMERO and left heart cath which revealed no thrombus, clean coronaries. Patient returned back to her baseline respiratory and cardiac status. Dedicated discharge time 34 minutes. Disposition: TO HOME OR SELFCARE Time spent for discharge: 34 - Discharge Diagnoses (1) Acute HFrEF (heart failure with reduced ejection fraction) Status: Acute (2) Acute respiratory failure Status: Acute (3) Hypoxia Status: Acute (4) Left bundle branch block Status: Acute (5) Pneumonia Status: Acute Qualifiers: Pneumonia type: due to unspecified organism Laterality: right Lung location: middle lobe of lung Qualified Code(s): J18.1 - Lobar pneumonia, unspecified organism (6) Cardiomyopathy Status: Chronic (7) Diabetes Status: Chronic (8) HTN (hypertension) Status: Chronic (9) Mitral regurgitation Status: Chronic (10) Pulmonary hypertension Status: Chronic (11) Sepsis Status: Acute Qualifiers: Sepsis type: sepsis due to unspecified organism Qualified Code(s): A41.9 - Sepsis, unspecified organism Core Measure Documentation - Palliative Care Palliative Care/ Comfort Measures: Not Applicable - Core Measures Any of the following diagnoses?: heart failure - Heart Failure Discharge Requirements ASHISH/ARB for LVSD if EF <40%: Yes Beta kitty at discharge: Yes Exam - Constitutional Vitals: Temp Pulse Resp BP Pulse Ox 98.1 F 80 18 109/63 99 09/03/18 07:36 09/03/18 08:18 09/03/18 08:18 09/03/18 07:36 09/03/18 07:36 General appearance: Present: no acute distress, well-nourished - EENT Eyes: Present: PERRL ENT: hearing intact, clear oral mucosa - Neck Neck: Present: supple, normal ROM - Respiratory Respiratory effort: normal Respiratory: bilateral: CTA - Cardiovascular Heart Sounds: Present: S1 & S2. Absent: rub, click - Extremities Extremities: pulses symmetrical, No edema Peripheral Pulses: within normal limits - Abdominal General gastrointestinal: Present: soft, non-tender, non-distended, normal bowel sounds Female genitourinary: Present: normal - Integumentary Integumentary: Present: clear, warm, dry - Musculoskeletal Musculoskeletal: gait normal, strength equal bilaterally - Psychiatric Psychiatric: appropriate mood/affect, intact judgment & insight - Neurologic Neurologic: CNII-XII intact, moves all extremities Plan Activity: no restrictions Weight Bearing Status: Full Weight Bearing Diet: low cholesterol, low salt, diabetic Follow up with: PRIMARY CARE, [Primary Care Provider] - 3-5 Days BARBIE DUKE MD [Staff Physician] - 7 Days Prescriptions: Aspirin [Aspirin BABY CHEW TAB] 81 mg PO QDAY #30 tab.chew Atorvastatin Calcium 80 mg PO DAILY #30 Furosemide [Lasix TAB] 40 mg PO QDAY #30 tablet Ipratropium/Albuterol Sulfate [DUONEB *Not for PRN Use*] 1 ampul IH TIDRT #30 ampul.neb Lisinopril [Zestril TAB] 5 mg PO BID #60 tablet methylPREDNISolone [Medrol] 4 mg PO QAM #1 tab.ds.pk Metoprolol [Lopressor TAB] 25 mg PO BID #60 tablet Spironolactone [Aldactone] 25 mg PO QDAY #30 tablet
[2018-09-03] MEDS: BABY ASPIRIN PO SCH (09:04)
[2018-09-03] MEDS: SOLU-Medrol IV SCH (09:04)
[2018-09-03] MEDS: HumuLIN R SUB-Q SCH (09:05)
[2018-09-03] MEDS: LOPRESSOR PO SCH (09:05)
[2018-09-03] MEDS: LOVENOX SUB-Q SCH (09:05)
[2018-09-03] MEDS: ROCEPHIN/NS 2 GM/100 ML 2 GM/100 ML BAG IV SCH (09:05)
[2018-09-03] MEDS: SODIUM CHLORIDE FLUSH SYRINGE 10 ML IV SCH (09:59)
[2018-09-03] MEDS ORDERED: ZESTRIL PO SCH (10:00)
[2018-09-03] MEDS ORDERED: LASIX PO SCH (10:00)
--- NOTE | 2018-09-03 10:23 | Progress Note ---
Assessment and Plan acute respiratory failure acute systolic heart failure severe mr htn chol dm abnl ekg - lbbb rec: increase lopressor 50mg daily and cont christian, lasix and aldactone and maybe discharge from [facility] point [facility] Subjective Date of service: 09/03/18 Principal diagnosis: PNA; HF Interval history: sob has improved Objective Vital Signs Temp Pulse Pulse Pulse Resp Resp Resp 09/03/18 09:05 71 09/03/18 08:18 74 80 16 18 09/03/18 08:10 18 09/03/18 07:36 98.1 F 59 L 18 09/03/18 03:41 98.0 F 74 18 09/03/18 00:00 98.3 F 75 18 09/02/18 20:00 98.3 F 93 H 18 09/02/18 19:39 86 15 09/02/18 19:24 84 14 09/02/18 17:14 88 09/02/18 14:50 78 78 18 18 09/02/18 13:46 09/02/18 13:25 81 09/02/18 11:45 82 14 09/02/18 11:30 80 16 09/02/18 11:15 77 19 09/02/18 11:00 84 15 09/02/18 10:45 98.9 F 80 14 BP Pulse Ox 09/03/18 09:05 09/03/18 08:18 09/03/18 08:10 09/03/18 07:36 109/63 99 09/03/18 03:41 129/85 93 09/03/18 00:00 148/99 97 09/02/18 20:00 140/86 97 09/02/18 19:39 09/02/18 19:24 09/02/18 17:14 144/82 95 09/02/18 14:50 09/02/18 13:46 98 09/02/18 13:25 142/91 09/02/18 11:45 139/93 99 09/02/18 11:30 142/89 99 09/02/18 11:15 140/88 98 09/02/18 11:00 137/90 99 09/02/18 10:45 141/86 99 - Physical Examination General: No Apparent Distress HEENT: Positive: PERRL, Normocephaly, Mucus Membranes Moist Neck: Positive: neck supple, trachea midline, thyromegaly Cardiac: Positive: Reg Rate and Rhythm Lungs: Positive: clear to auscultation Neuro: Positive: Grossly Intact Abdomen: Positive: Soft. Negative: Tender Skin: Negative: Rash, Wound Musculoskeletal: No Pain Extremities: Absent: edema - Labs and Meds CBC 09/03/18 Range/Units 05:52 WBC 8.1 (4.5-11.0) K/mm3 RBC 4.54 (3.65-5.03) M/mm3 Hgb 13.5 (10.1-14.3) gm/dl Hct 40.9 (30.3-42.9) % Plt Count 221 (140-440) K/mm3 Lymph # 0.8 L (1.2-5.4) K/mm3 [place] # 0.4 (0.0-0.8) K/mm3 Eos # 0.0 (0.0-0.4) K/mm3 Baso # 0.0 (0.0-0.1) K/mm3 Comprehensive Metabolic Panel 09/03/18 Range/Units 05:52 Sodium 143 (137-145) mmol/L Potassium 3.6 (3.6-5.0) mmol/L Chloride 103.6 (98-107) mmol/L Carbon Dioxide 28 (22-30) mmol/L BUN 15 (7-17) mg/dL Creatinine 0.7 (0.7-1.2) mg/dL Glucose 156 H (65-100) mg/dL Calcium 8.8 (8.4-10.2) mg/dL - Imaging and Cardiology EKG: report reviewed, image reviewed Echo: report reviewed (ECHO 09/14: EF 15-20%, mass RA medial wall, pul HTN, mod- sev MR) Cardiac cath: report reviewed (normal coronaries and left dominant system lvedp 40 mm hg) - Telemetry EKG Rhythm: Sinus Rhythm (8 beat non sustained vtach last night)
[2018-09-03] MEDS ORDERED: LOPRESSOR PO SCH (11:00)
[2018-09-04] MEDS ORDERED: ZESTRIL PO SCH (10:00)
== END 2018-09-03 14:25 | disposition home or self-care (01) | DRG 871 ==
LOC: ED 07:43 → 3A 10:22 → 4A 08-29 10:02
PROVIDERS: ADMIT Hospitalist; ATTEND Hospitalist
PROC: 4A033R1 Measurement of Arterial Saturation, Peripheral, Percutaneous Approach (ICD-10-PCS; 2018-08-29)
PROC: 4A023N7 Measurement of Cardiac Sampling and Pressure, Left Heart, Percutaneous Approach (ICD-10-PCS; principal; 2018-09-02)
PROC: B2111ZZ Fluoroscopy of Multiple Coronary Arteries using Low Osmolar Contrast (ICD-10-PCS; 2018-09-02)
PROC: B2151ZZ Fluoroscopy of Left Heart using Low Osmolar Contrast (ICD-10-PCS; 2018-09-02)
DX: A41.9 Sepsis, unspecified organism (principal); J18.1 Lobar pneumonia, unspecified organism; J96.01 Acute respiratory failure with hypoxia; I50.21 Acute systolic (congestive) heart failure; J44.1 Chronic obstructive pulmonary disease with (acute) exacerbation; J44.0 Chronic obstructive pulmonary disease with (acute) lower respiratory infection; I42.9 Cardiomyopathy, unspecified; I11.0 Hypertensive heart disease with heart failure; E11.9 Type 2 diabetes mellitus without complications; I44.7 Left bundle-branch block, unspecified; I34.0 Nonrheumatic mitral (valve) insufficiency; I27.20 Pulmonary hypertension, unspecified; E66.9 Obesity, unspecified; E78.00 Pure hypercholesterolemia, unspecified; F12.11 Cannabis abuse, in remission; Z90.710 Acquired absence of both cervix and uterus; Z85.3 Personal history of malignant neoplasm of breast; Z92.21 Personal history of antineoplastic chemotherapy; Z88.8 Allergy status to other drugs, medicaments and biological substances; Z68.37 Body mass index [BMI] 37.0-37.9, adult; Z87.891 Personal history of nicotine dependence
CPT/HCPCS: 36415; 36600; 71045; 71275; 80048; 80053; 80061; 82140; 82550; 82553; 82803; 82962; 84484; 85025; 85610; 85730; 93005; 93010; 93306; 93312; 93320; 93325; 93458; 94640; 94760; 99285; G0378; C1894; J0456; J0696; J1644; J1650; J1815; J1940; J1956; J2250; J2405; J2704; J2920; J2930; J3475; J7030; J7050; Q9967

== ENCOUNTER 2018-10-22 06:41 | Inpatient (IN) | payer OTHER ==
[2018-10-22] MEDS ORDERED: NACL 0.9% 1000 ML IV ONE (07:04)
--- NOTE | 2018-10-22 07:14 | XRay Report ---
FINAL REPORT EXAM: XR CHEST 1V AP HISTORY: SOB TECHNIQUE: AP portable view(s) of the chest obtained. PRIORS: 08/19/2018 FINDINGS: Patient is rotated. No mediastinal shift. Cardiac silhouette is not enlarged. No pneumothorax. Focal right perihilar airspace disease with air bronchograms. Patchy right upper lung and left lower lung r etrocardiac opacity. No definite effusion or acute skeletal finding. IMPRESSION: Multifocal airspace disease is most confluent in the right perihilar region with air bronchograms. PA and lateral chest radiographic follow-up to resolution is recommended.
--- NOTE | 2018-10-22 07:28 | Emergency Department Report ---
ED General Adult HPI - General Chief complaint: Dyspnea/Respdistress Stated complaint: DIFFICULTY IN BREATHING Time Seen by Provider: 10/22/18 06:54 Source: EMS Mode of arrival: Stretcher Limitations: No Limitations - History of Present Illness Initial comments: Patient presents to emergency Department chief complaint of shortness of breath that started last night. Patient was recently discharged from the hospital possibly a month ago for pneumonia. Patient states that she was discharged on antibiotics and albuterol. Patient endorses shortness of breath but denies chest pain, abdominal pain, or headache. Patient complains of body aches -: Sudden Severity scale (0 -10): 4 Quality: aching Consistency: constant Improves with: none Worsens with: none Associated Symptoms: denies other symptoms Treatments Prior to Arrival: none - Related Data Home Medications Medication Instructions Recorded Confirmed Last Taken ALBUTEROL Inhaler (OR & NICU) 2 puff IH QID PRN 10/22/18 10/22/18 Unknown [Proair] Atorvastatin Calcium [Lipitor] 80 mg PO DAILY 10/22/18 10/22/18 Unknown Cholecalciferol Vit D3 [Vitamin D3 1,000 unit PO QDAY 10/22/18 10/22/18 Unknown 1,000 UNIT TAB] Ipratropium (Nf) [Atrovent] 2 puff IH Q6HR 10/22/18 10/22/18 Unknown Lisinopril [Zestril] 20 mg PO QDAY 10/22/18 10/22/18 Unknown Metoprolol Succinate [Toprol Xl] 100 mg PO DAILY 10/22/18 10/22/18 Unknown Potassium Chloride [K-Dur] 20 meq PO QDAY 10/22/18 10/22/18 Unknown RX: Spironolactone 25 mg PO DAILY 10/22/18 10/22/18 Unknown Venlafaxine [Effexor] 75 mg PO DAILY 10/22/18 10/22/18 Unknown metFORMIN [Glucophage] 500 mg PO BID 10/22/18 10/22/18 Unknown Previous Rx's Medication Instructions Recorded Last Taken Type RX: Aspirin [Aspirin BABY CHEW TAB] 81 mg PO QDAY #30 tab.chew 09/03/18 Unknown Rx Allergies Allergy/AdvReac Type Severity Reaction Status Date / Time No Known Allergies Allergy Unverified 08/19/18 05:03 ED Review of Systems ROS: Stated complaint: DIFFICULTY IN BREATHING Other details as noted in HPI Constitutional: denies: chills, fever Eyes: denies: eye pain, eye discharge, vision change ENT: denies: ear pain, throat pain Respiratory: cough. denies: shortness of breath, wheezing Cardiovascular: denies: chest pain, palpitations Endocrine: no symptoms reported Gastrointestinal: denies: abdominal pain, nausea, diarrhea Genitourinary: denies: urgency, dysuria, discharge Musculoskeletal: denies: back pain, joint swelling, arthralgia Skin: denies: rash, lesions Neurological: denies: headache, weakness, paresthesias Psychiatric: denies: anxiety, depression Hematological/Lymphatic: denies: easy bleeding, easy bruising ED Past Medical Hx - Past Medical History Previous Medical History?: Yes Hx Hypertension: Yes (hypercholesterolemia also) Hx Diabetes: Yes Additional medical history: L breast Ca, chemo & radiation-2007. remission since 2007 - Surgical History Past Surgical History?: Yes Additional Surgical History: partial hysterectomy. L lumpectomy 2007 - Social History Smoking Status: Current Some Day Smoker Substance Use Type: Alcohol, Prescribed - Medications Home Medications: Home Medications Medication Instructions Recorded Confirmed Last Taken Type RX: Aspirin [Aspirin BABY CHEW TAB] 81 mg PO QDAY #30 tab.chew 09/03/18 10/22/18 Unknown Rx ALBUTEROL Inhaler (OR & NICU) 2 puff IH QID PRN 10/22/18 10/22/18 Unknown History [Proair] Atorvastatin Calcium [Lipitor] 80 mg PO DAILY 10/22/18 10/22/18 Unknown History Cholecalciferol Vit D3 [Vitamin D3 1,000 unit PO QDAY 10/22/18 10/22/18 Unknown History 1,000 UNIT TAB] Ipratropium (Nf) [Atrovent] 2 puff IH Q6HR 10/22/18 10/22/18 Unknown History Lisinopril [Zestril] 20 mg PO QDAY 10/22/18 10/22/18 Unknown History Metoprolol Succinate [Toprol Xl] 100 mg PO DAILY 10/22/18 10/22/18 Unknown History Potassium Chloride [K-Dur] 20 meq PO QDAY 10/22/18 10/22/18 Unknown History RX: Spironolactone 25 mg PO DAILY 10/22/18 10/22/18 Unknown History Venlafaxine [Effexor] 75 mg PO DAILY 10/22/18 10/22/18 Unknown History metFORMIN [Glucophage] 500 mg PO BID 10/22/18 10/22/18 Unknown History ED Physical Exam - General Limitations: No Limitations General appearance: alert, in no apparent distress - Head Head exam: Present: atraumatic, normocephalic - Eye Eye exam: Present: normal appearance, PERRL, EOMI - ENT ENT exam: Present: mucous membranes moist - Neck Neck exam: Present: normal inspection - Respiratory Respiratory exam: Present: respiratory distress, rales. Absent: wheezes - Cardiovascular Cardiovascular Exam: Present: normal rhythm, tachycardia. Absent: systolic murmur, diastolic murmur, rubs, gallop - GI/Abdominal GI/Abdominal exam: Present: soft, normal bowel sounds. Absent: distended, tenderness - Extremities Exam Extremities exam: Present: normal inspection - Back Exam Back exam: Present: normal inspection - Neurological Exam Neurological exam: Present: alert, oriented X3, CN II-XII intact. Absent: motor sensory deficit - Psychiatric Psychiatric exam: Present: normal affect, normal mood - Skin Skin exam: Present: warm, dry, intact, normal color. Absent: rash ED Course Vital Signs 10/22/18 10/22/18 10/22/18 06:43 06:44 06:45 Temperature 98.0 F Pulse Rate 112 H 114 H Pulse Rate [ Anterior Bilateral Throughout] Respiratory 35 H 34 H Rate Respiratory Rate [Anterior Bilateral Throughout] Blood Pressure 151/112 Blood Pressure 151/112 [Left] O2 Sat by Pulse 100 99 99 Oximetry 10/22/18 10/22/18 10/22/18 07:00 07:15 07:30 Temperature Pulse Rate 112 H 106 H 115 H Pulse Rate [ Anterior Bilateral Throughout] Respiratory 33 H Rate Respiratory Rate [Anterior Bilateral Throughout] Blood Pressure 155/103 138/98 160/118 Blood Pressure [Left] O2 Sat by Pulse 94 99 87 Oximetry 10/22/18 10/22/18 10/22/18 07:37 07:45 07:58 Temperature Pulse Rate Pulse Rate [ 114 H 110 H Anterior Bilateral Throughout] Respiratory Rate Respiratory 26 H 26 H Rate [Anterior Bilateral Throughout] Blood Pressure 168/111 Blood Pressure [Left] O2 Sat by Pulse 89 Oximetry 10/22/18 10/22/18 10/22/18 08:06 08:15 08:30 Temperature Pulse Rate 142 H 118 H 114 H Pulse Rate [ Anterior Bilateral Throughout] Respiratory 17 Rate Respiratory Rate [Anterior Bilateral Throughout] Blood Pressure 168/111 174/102 164/126 Blood Pressure [Left] O2 Sat by Pulse 95 93 Oximetry 10/22/18 10/22/18 10/22/18 08:45 09:01 09:15 Temperature Pulse Rate 114 H 122 H Pulse Rate [ Anterior Bilateral Throughout] Respiratory Rate Respiratory Rate [Anterior Bilateral Throughout] Blood Pressure 150/104 137/101 134/107 Blood Pressure [Left] O2 Sat by Pulse 96 95 71 L Oximetry 10/22/18 10/22/18 10/22/18 09:31 09:45 10:00 Temperature Pulse Rate 126 H 123 H Pulse Rate [ Anterior Bilateral Throughout] Respiratory 43 H Rate Respiratory Rate [Anterior Bilateral Throughout] Blood Pressure 147/101 137/101 122/90 Blood Pressure [Left] O2 Sat by Pulse 84 100 100 Oximetry 10/22/18 10/22/18 10/22/18 10:15 10:31 10:45 Temperature Pulse Rate 120 H 121 H 120 H Pulse Rate [ Anterior Bilateral Throughout] Respiratory 20 20 20 Rate Respiratory Rate [Anterior Bilateral Throughout] Blood Pressure 122/90 186/140 190/137 Blood Pressure [Left] O2 Sat by Pulse 99 100 100 Oximetry 10/22/18 10/22/18 10/22/18 11:00 11:15 11:31 Temperature Pulse Rate 121 H 124 H 115 H Pulse Rate [ Anterior Bilateral Throughout] Respiratory 28 H 27 H Rate Respiratory Rate [Anterior Bilateral Throughout] Blood Pressure 205/137 205/137 206/84 Blood Pressure [Left] O2 Sat by Pulse 99 98 100 Oximetry 10/22/18 10/22/18 10/22/18 11:41 11:46 12:01 Temperature Pulse Rate 104 H 103 H 106 H Pulse Rate [ Anterior Bilateral Throughout] Respiratory 20 25 H Rate Respiratory Rate [Anterior Bilateral Throughout] Blood Pressure 135/94 135/94 Blood Pressure [Left] O2 Sat by Pulse 100 98 96 Oximetry 10/22/18 10/22/18 10/22/18 12:15 12:31 12:33 Temperature 96.1 F L Pulse Rate 103 H 98 H Pulse Rate [ Anterior Bilateral Throughout] Respiratory 27 H 20 Rate Respiratory Rate [Anterior Bilateral Throughout] Blood Pressure 116/78 112/82 Blood Pressure [Left] O2 Sat by Pulse 97 97 Oximetry 10/22/18 10/22/18 13:33 13:48 Temperature Pulse Rate Pulse Rate [ 92 H 91 H Anterior Bilateral Throughout] Respiratory Rate Respiratory 22 21 Rate [Anterior Bilateral Throughout] Blood Pressure Blood Pressure [Left] O2 Sat by Pulse Oximetry - Intubation Time Out Performed: Yes Sedative: Etomidate Mg Given: 20 Paralytic: Rocuronium Mg Given: 70 Laryngoscope: Rosa Size: 3 ET Tube Size: 7.5 Tube Secured Location: lips Tube Placement Confirmation: visualized tube passing t, equal breath sounds bilat, no breath sounds over epi, confirmation by capnometr Patient Tolerated Procedure: well Intubation Complications: none ED Medical Decision Making - Lab Data Result diagrams: 10/22/18 07:32 10/22/18 10:05 Lab Results 10/22/18 10/22/18 10/22/18 Range/Units 07:03 07:32 07:32 WBC 11.6 H (4.5-11.0) K/mm3 RBC 4.49 (3.65-5.03) M/mm3 Hgb 13.3 (10.1-14.3) gm/dl Hct 41.2 (30.3-42.9) % MCV 92 (79-97) fl MCH 30 (28-32) pg MCHC 32 (30-34) % RDW 14.7 (13.2-15.2) % Plt Count 244 (140-440) K/mm3 Lymph % (Auto) Top Closer Hudson % (Auto) Top Closer Eos % (Auto) Top Closer Baso % (Auto) Top Closer Lymph # Top Closer Hudson # Top Closer Eos # Top Closer Baso # Top Closer Seg Neutrophils % Top Closer Seg Neutrophils # Top Closer POC ABG pH (7.35-7.45) POC ABG pCO2 (35-45) POC ABG pO2 (80-105) POC ABG HCO3 POC ABG Total CO2 POC ABG O2 Sat POC ABG Base Excess FiO2 % Sodium 140 144 (137-145) mmol/L Potassium TNR 4.6 Chloride 103.0 104.9 (98-107) mmol/L Carbon Dioxide 22 24 (22-30) mmol/L Anion Gap 22 20 mmol/L BUN 14 13 (7-17) mg/dL Creatinine 0.7 0.7 (0.7-1.2) mg/dL Estimated GFR > 60 > 60 ml/min BUN/Creatinine Ratio 20 19 % Glucose 318 H 306 H (65-100) mg/dL Calcium 8.7 9.1 (8.4-10.2) mg/dL Total Bilirubin 0.30 (0.1-1.2) mg/dL AST 43 H (5-40) units/L ALT 38 (7-56) units/L Alkaline Phosphatase 113 (35-129) units/L Troponin T (0.00-0.029) ng/mL NT-Pro-B Natriuret Pep (0-900) pg/mL Total Protein 6.7 (6.3-8.2) g/dL Albumin 4.1 (3.9-5) g/dL Albumin/Globulin Ratio 1.6 % Urine Color (Yellow) Urine Turbidity (Clear) Urine pH (5.0-7.0) Ur Specific Burden (1.003-1.030) Urine Protein (Negative) mg/dL Urine Glucose (UA) (Negative) mg/dL Urine Ketones (Negative) mg/dL Urine Blood (Negative) Urine Nitrite (Negative) Urine Bilirubin (Negative) Urine Urobilinogen (<2.0) mg/dL Ur Leukocyte Esterase (Negative) Urine WBC (Auto) (0.0-6.0) /HPF Urine RBC (Auto) (0.0-6.0) /HPF U Epithel Cells (Auto) (0-13.0) /HPF Urine Bacteria (Auto) (Negative) /HPF Urine Mucus /HPF 10/22/18 10/22/18 10/22/18 Range/Units 07:32 08:35 10:07 WBC (4.5-11.0) K/mm3 RBC (3.65-5.03) M/mm3 Hgb (10.1-14.3) gm/dl Hct (30.3-42.9) % MCV (79-97) fl MCH (28-32) pg MCHC (30-34) % RDW (13.2-15.2) % Plt Count (140-440) K/mm3 Lymph % (Auto) Hudson % (Auto) Eos % (Auto) Baso % (Auto) Lymph # Hudson # Eos # Baso # Seg Neutrophils % Seg Neutrophils # POC ABG pH 7.091 L (7.35-7.45) POC ABG pCO2 86.0 H (35-45) POC ABG pO2 86 (80-105) POC ABG HCO3 26.1 POC ABG Total CO2 29 POC ABG O2 Sat 91 POC ABG Base Excess -4 FiO2 100 % Sodium (137-145) mmol/L Potassium Chloride (98-107) mmol/L Carbon Dioxide (22-30) mmol/L Anion Gap mmol/L BUN (7-17) mg/dL Creatinine (0.7-1.2) mg/dL Estimated GFR ml/min BUN/Creatinine Ratio % Glucose (65-100) mg/dL Calcium (8.4-10.2) mg/dL Total Bilirubin (0.1-1.2) mg/dL AST (5-40) units/L ALT (7-56) units/L Alkaline Phosphatase (35-129) units/L Troponin T < 0.010 (0.00-0.029) ng/mL NT-Pro-B Natriuret Pep 2049 H (0-900) pg/mL Total Protein (6.3-8.2) g/dL Albumin (3.9-5) g/dL Albumin/Globulin Ratio % Urine Color Yellow (Yellow) Urine Turbidity Cloudy (Clear) Urine pH 5.0 (5.0-7.0) Ur Specific Burden 1.019 (1.003-1.030) Urine Protein 100 mg/dl (Negative) mg/dL Urine Glucose (UA) 150 (Negative) mg/dL Urine Ketones Neg (Negative) mg/dL Urine Blood Lg (Negative) Urine Nitrite Neg (Negative) Urine Bilirubin Neg (Negative) Urine Urobilinogen < 2.0 (<2.0) mg/dL Ur Leukocyte Esterase Neg (Negative) Urine WBC (Auto) 18.0 H (0.0-6.0) /HPF Urine RBC (Auto) 6.0 (0.0-6.0) /HPF U Epithel Cells (Auto) 1.0 (0-13.0) /HPF Urine Bacteria (Auto) 3+ (Negative) /HPF Urine Mucus Few /HPF 10/22/18 Range/Units 10:17 WBC (4.5-11.0) K/mm3 RBC (3.65-5.03) M/mm3 Hgb (10.1-14.3) gm/dl Hct (30.3-42.9) % MCV (79-97) fl MCH (28-32) pg MCHC (30-34) % RDW (13.2-15.2) % Plt Count (140-440) K/mm3 Lymph % (Auto) Hudson % (Auto) Eos % (Auto) Baso % (Auto) Lymph # Hudson # Eos # Baso # Seg Neutrophils % Seg Neutrophils # POC ABG pH 7.175 L (7.35-7.45) POC ABG pCO2 68.3 H (35-45) POC ABG pO2 112 H (80-105) POC ABG HCO3 25.2 POC ABG Total CO2 27 POC ABG O2 Sat 97 POC ABG Base Excess -3 FiO2 100 % Sodium (137-145) mmol/L Potassium Chloride (98-107) mmol/L Carbon Dioxide (22-30) mmol/L Anion Gap mmol/L BUN (7-17) mg/dL Creatinine (0.7-1.2) mg/dL Estimated GFR ml/min BUN/Creatinine Ratio % Glucose (65-100) mg/dL Calcium (8.4-10.2) mg/dL Total Bilirubin (0.1-1.2) mg/dL AST (5-40) units/L ALT (7-56) units/L Alkaline Phosphatase (35-129) units/L Troponin T (0.00-0.029) ng/mL NT-Pro-B Natriuret Pep (0-900) pg/mL Total Protein (6.3-8.2) g/dL Albumin (3.9-5) g/dL Albumin/Globulin Ratio % Urine Color (Yellow) Urine Turbidity (Clear) Urine pH (5.0-7.0) Ur Specific Burden (1.003-1.030) Urine Protein (Negative) mg/dL Urine Glucose (UA) (Negative) mg/dL Urine Ketones (Negative) mg/dL Urine Blood (Negative) Urine Nitrite (Negative) Urine Bilirubin (Negative) Urine Urobilinogen (<2.0) mg/dL Ur Leukocyte Esterase (Negative) Urine WBC (Auto) (0.0-6.0) /HPF Urine RBC (Auto) (0.0-6.0) /HPF U Epithel Cells (Auto) (0-13.0) /HPF Urine Bacteria (Auto) (Negative) /HPF Urine Mucus /HPF - EKG Data -: EKG Interpreted by Me EKG shows normal: sinus rhythm Rate: tachycardia - Radiology Data Radiology results: report reviewed - Medical Decision Making Patient received an albuterol treatment via EMS and upon completion of the breathing treatment the patient's O2 sats dropped to 77% A DuoNeb breathing treatment was done in the ED as well as an ABG ABG shows the patient is hypoxic Ventimask supplied Called to the room at approximately 9:35 AM and the patient is a complete rest for distress and not able to tolerate the BiPAP that we initially tried to place At this time decision made to intubate the patient Critical Care Time: Yes Critical care time in (mins) excluding proc time.: 45 Critical care attestation.: If time is entered above; I have spent that time in minutes in the direct care of this critically ill patient, excluding procedure time. ED Disposition Clinical Impression: Sepsis, Respiratory failure, Hypoxia Disposition: DC09 OP ADMIT IP TO THIS HOSP Is pt being admited?: Yes Does the pt Need Aspirin: Yes Condition: Fair
[2018-10-22] MEDS ORDERED: VANCOMYCIN/NS 1 GM/250 ML 1 GM/250 ML BAG IV ONE (07:29)
[2018-10-22] MEDS ORDERED: DUONEB *Not for PRN Use IH ONE ×3 (07:36→13:28)
[2018-10-22 07:39] LABS: BUN/Creatinine Ratio 20; Blood Urea Nitrogen 14 mg/dL (7-17); Calcium 8.7 mg/dL (8.4-10.2); Hemolysis Index 554
[2018-10-22 07:48] LABS: Hematocrit 41.2 % (30.3-42.9); Hemoglobin 13.3 gm/dl (10.1-14.3); Mean Corpuscular HGB Conc 32 % (30-34); Mean Corpuscular Volume 92 fl (79-97); Platelet Count 244 K/mm3 (140-440); Red Blood Count 4.49 M/mm3 (3.65-5.03); Red Cell Distribution Width 14.7 % (13.2-15.2)
[2018-10-22] MEDS ORDERED: ZITHROMAX 500 MG in NACL 0.9% 250ML 250 ML IV ONE (08:00)
[2018-10-22 08:10] LABS: Alanine Aminotransferase 38 units/L (7-56); Albumin 4.1 g/dL (3.9-5); BUN/Creatinine Ratio 19; Blood Urea Nitrogen 13 mg/dL (7-17); Calcium 9.1 mg/dL (8.4-10.2); Hemolysis Index 38
[2018-10-22] MEDS ORDERED: VANCOMYCIN 1,500 MG in NACL 0.9% 500 ML 500 ML IV ONE (08:30)
[2018-10-22] MEDS ORDERED: LASIX IV ONE (10:02)
[2018-10-22] MEDS ORDERED: VASELINE LIP THERAPY TP PRN (10:05)
[2018-10-22] MEDS ORDERED: ARTIFICIAL TEARS OPHTH OINT OU PRN (10:05)
[2018-10-22 10:27] LABS: Bacteria,Urine 3+ /HPF (Negative); Bilirubin,Urine NEG (Negative); Blood,Urine LG (Negative); Color,Urine Yellow (Yellow); Mucus,Urine FEW /HPF; Urobilinogen,Urine < 2.0 mg/dL (<2.0)
[2018-10-22] MEDS: DIPRIVAN 10 MG/ML 1,000 MG/100 ML BOTTLE IV SCH ×2 (10:29→22:13)
[2018-10-22 10:40] LABS: BUN/Creatinine Ratio 21; Blood Urea Nitrogen 15 mg/dL (7-17); Calcium 7.7 mg/dL (8.4-10.2); Hemolysis Index 42
[2018-10-22] MEDS ORDERED: ASPIRIN PR ONE ×2 (10:40→17:00)
--- NOTE | 2018-10-22 10:48 | XRay Report ---
AP CHEST: HISTORY: Endotracheal tube placement The endotracheal tube terminates 5.3 cm superior to the milla. A nasogastric tube is followed to the fundus of the stomach. Bilateral lung infiltrates consistent with pulmonary edema appear stable since earlier today at 0656 hours. Heart size is at the upper limits of normal. No large pleural effusion or pneumothorax. IMPRESSION: Adequate placement of the endotracheal tube. Persistent bilateral infiltrates or pulmonary edema.
--- NOTE | 2018-10-22 11:25 | History and Physical Report ---
History of Present Illness Date of examination: 10/22/18 Date of admission: 10/22/18 10:35 Chief complaint: Shortness of breath History of present illness: Patient is 58 yo with hypertension, hyperlipidemia, diabetes, CHF presents with shortness of breath , just started this morning. History obtained from son at bedside since patient is now intubated. As per son, patient just complained of shortness of breath few hors ago. Shortness of breath worse on exertion. There was no chest pain. No fever. She was brought to ED for evaluation. Patient seen by ED Physician. Chest X ray showed bilateral infiltrates. Patient was started on BiBap, Lasix, iv Antibiotics. She did not improve and was therefore intubated placed on ventilator. Will admit to ICU. Past History Past Medical History: diabetes, heart failure (systolic), hypertension, hyperlipidemia, other (LBBB, Mitral regurg, pneumonia) Past Surgical History: hysterectomy (partial), Other (Left breast lumpectomy, ) Social history: lives with family, full code, other (Alcohol occasionally, marijuana) Family history: no significant family history Medications and Allergies Allergies Allergy/AdvReac Type Severity Reaction Status Date / Time No Known Allergies Allergy Unverified 08/19/18 05:03 Home Medications Medication Instructions Recorded Confirmed Last Taken Type Aspirin [Aspirin BABY CHEW TAB] 81 mg PO QDAY #30 tab.chew 09/03/18 10/22/18 Unknown Rx ALBUTEROL Inhaler (OR & NICU) 2 puff IH QID PRN 10/22/18 10/22/18 Unknown History [Proair] Atorvastatin Calcium [Lipitor] 80 mg PO DAILY 10/22/18 10/22/18 Unknown History Cholecalciferol Vit D3 [Vitamin D3 1,000 unit PO QDAY 10/22/18 10/22/18 Unknown History 1,000 UNIT TAB] Ipratropium (Nf) [Atrovent] 2 puff IH Q6HR 10/22/18 10/22/18 Unknown History Lisinopril [Zestril] 20 mg PO QDAY 10/22/18 10/22/18 Unknown History Metoprolol Succinate [Toprol Xl] 100 mg PO DAILY 10/22/18 10/22/18 Unknown History Potassium Chloride [K-Dur] 20 meq PO QDAY 10/22/18 10/22/18 Unknown History Spironolactone 25 mg PO DAILY 10/22/18 10/22/18 Unknown History Venlafaxine [Effexor] 75 mg PO DAILY 10/22/18 10/22/18 Unknown History metFORMIN [Glucophage] 500 mg PO BID 10/22/18 10/22/18 Unknown History Active Meds: Active Medications Hydrophilic Ointment (Vaseline Lip Therapy) 1 applic TP Q2HR PRN PRN Reason: Dry Lips Cefepime HCl (Maxipime/Ns 2 Gm/100 Ml) 2 gm in 100 mls @ 200 mls/hr IV Q12HR S CH; Protocol Propofol (Diprivan 10 Mg/Ml) 1,000 mg in 100 mls @ 2.749 mls/hr IV TITR LIDIA; Protocol Last Admin: 10/22/18 10:29 Dose: 5 mcg/kg/min, 2.749 mls/hr Documented by: Multi-Ingred Cream/Lotion/Oil/Oint (Artificial Tears Ophth Oint) 1 applic OU Q4HR PRN PRN Reason: Dry Eye(s) Review of Systems ROS unobtainable: due to endotracheal tube Exam - Physical Exam Narrative exam: GEN: Intubated, lying in bed,obese HEENT: Normocephalic, atraumatic, Neck: supple, No JVD Lungs: Bilateral basal crackles, no wheeze Heart:S1 and S2 regular, no murmurs, rubs or gallop, Abd:soft, non tender, non distended, normal bowel sounds Ext: Bilateral pedal edema, no clubbing or cyanosis Neuro: Intubated, opens eyes, follows commands, moves all ext, mild agitation - Constitutional Vitals: Temp Pulse Resp BP Pulse Ox 98.0 F 120 H 20 122/90 99 10/22/18 06:43 10/22/18 10:15 10/22/18 10:15 10/22/18 10:15 10/22/18 10:15 Results - Labs CBC & Chem 7: 10/23/18 04:56 10/23/18 04:56 Labs: Abnormal lab results 10/22/18 10/22/18 10/22/18 Range/Units 07:03 07:32 07:32 WBC 11.6 H (4.5-11.0) K/mm3 APTT (24.2-36.6) Sec. POC ABG pH (7.35-7.45) POC ABG pCO2 (35-45) POC ABG pO2 (80-105) Chloride (98-107) mmol/L Glucose 318 H 306 H (65-100) mg/dL Calcium (8.4-10.2) mg/dL AST 43 H (5-40) units/L NT-Pro-B Natriuret Pep (0-900) pg/mL Urine WBC (Auto) (0.0-6.0) /HPF 10/22/18 10/22/18 10/22/18 Range/Units 07:32 08:35 10:05 WBC (4.5-11.0) K/mm3 APTT 23.0 L (24.2-36.6) Sec. POC ABG pH 7.091 L (7.35-7.45) POC ABG pCO2 86.0 H (35-45) POC ABG pO2 (80-105) Chloride (98-107) mmol/L Glucose (65-100) mg/dL Calcium (8.4-10.2) mg/dL AST (5-40) units/L NT-Pro-B Natriuret Pep 2049 H (0-900) pg/mL Urine WBC (Auto) (0.0-6.0) /HPF 10/22/18 10/22/18 10/22/18 Range/Units 10:05 10:07 10:17 WBC (4.5-11.0) K/mm3 APTT (24.2-36.6) Sec. POC ABG pH 7.175 L (7.35-7.45) POC ABG pCO2 68.3 H (35-45) POC ABG pO2 112 H (80-105) Chloride 108.1 H (98-107) mmol/L Glucose 277 H (65-100) mg/dL Calcium 7.7 L D (8.4-10.2) mg/dL AST (5-40) units/L NT-Pro-B Natriuret Pep (0-900) pg/mL Urine WBC (Auto) 18.0 H (0.0-6.0) /HPF Assessment and Plan Acute resp failure. Intubated in ED because of resp distress Admit to ICU Consult Pulmonology Poss sepsis Blood cultures drawn started Cefepime in ED also given vancomycin, azithromycin in ED Consult ID Physician Bilateral infiltrates Pneumonia vs pulm edema Stated on Cefepime BNP elevated UTI Acute on chronic systolic CHF lasix iv bid EF 25-30% on Echo last month consult cardiology Poss COPD exacerbation son at bedside denies history of COPD Diabetes mellitus type 2. Fingerstick glucose qac and hs Full code
[2018-10-22] MEDS ORDERED: PROVENTIL IH PRN (12:20)
[2018-10-22] MEDS ORDERED: D50W (25GM) Syringe IV PRN (12:20)
[2018-10-22] MEDS ORDERED: SODIUM CHLORIDE FLUSH SYRINGE 10 ML IV PRN (12:20)
[2018-10-22] MEDS ORDERED: NITROSTAT SL PRN (12:23)
--- NOTE | 2018-10-22 13:14 | Consultation ---
History of Present Illness Consult date: 10/22/18 Requesting physician: BERNA BURGOS Consult reason: congestive heart failure History of present illness: Pt is a 58 YO female with a past medical history of HFrEF, NICMP, severe MR, HTN, DM, obesity. She has been seen by our practice on prior hospitalization. She is intubated on evaluation and thus HPI obtained per the chart. She presented for eval of SOB which started last night. She developed respiratory distress in ED and was subsequently intubated. CXR c/w pulmonary edema. LHC done 09/02/2018 showed normal coronaries, EF 25-30%. TTE done 08/30/2018 showed EF 15-20%, LV mod dilated, LA mild to mod dilated, RV slightly dilated, oval calcified mass adherent to medial aspect of the RA wall, mod to severe MR, pulm HTN with RVSP 56mmHg. HOMERO done 09/02/2018 showed severe MR, EF 25-30%, calcified echodensity in the RA. Past History Past Medical History: diabetes, heart failure (systolic), hypertension, hyperlipidemia, other (LBBB, Mitral regurg, pneumonia) Past Surgical History: hysterectomy (partial), Other (Left breast lumpectomy) Social history: lives with family, full code, other (Alcohol occasionally, marijuana) Family history: no significant family history Medications and Allergies Allergies Allergy/AdvReac Type Severity Reaction Status Date / Time No Known Allergies Allergy Unverified 08/19/18 05:03 Home Medications Medication Instructions Recorded Confirmed Last Taken Type Aspirin [Aspirin BABY CHEW TAB] 81 mg PO QDAY #30 tab.chew 09/03/18 10/22/18 Unknown Rx ALBUTEROL Inhaler (OR & NICU) 2 puff IH QID PRN 10/22/18 10/22/18 Unknown History [Proair] Atorvastatin Calcium [Lipitor] 80 mg PO DAILY 10/22/18 10/22/18 Unknown History Cholecalciferol Vit D3 [Vitamin D3 1,000 unit PO QDAY 10/22/18 10/22/18 Unknown History 1,000 UNIT TAB] Ipratropium (Nf) [Atrovent] 2 puff IH Q6HR 10/22/18 10/22/18 Unknown History Lisinopril [Zestril] 20 mg PO QDAY 10/22/18 10/22/18 Unknown History Metoprolol Succinate [Toprol Xl] 100 mg PO DAILY 10/22/18 10/22/18 Unknown History Potassium Chloride [K-Dur] 20 meq PO QDAY 10/22/18 10/22/18 Unknown History Spironolactone 25 mg PO DAILY 10/22/18 10/22/18 Unknown History Venlafaxine [Effexor] 75 mg PO DAILY 10/22/18 10/22/18 Unknown History metFORMIN [Glucophage] 500 mg PO BID 10/22/18 10/22/18 Unknown History Active Meds: Active Medications Albuterol (Proventil) 2.5 mg IH Q3HRT PRN PRN Reason: Shortness Of Breath Albuterol/Ipratropium (Duoneb *Not For Prn Use*) 1 ampul IH Q6HRT [facility] Dextrose (D50w (25gm) Syringe) 50 ml IV PRN PRN PRN Reason: Hypoglycemia Furosemide (Lasix) 40 mg IV BID@0600,1800 [facility] Hydrophilic Ointment (Vaseline Lip Therapy) 1 applic TP Q2HR PRN PRN Reason: Dry Lips Cefepime HCl (Maxipime/Ns 2 Gm/100 Ml) 2 gm in 100 mls @ 200 mls/hr IV Q12HR [facility]; Protocol Propofol (Diprivan 10 Mg/Ml) 1,000 mg in 100 mls @ 2.749 mls/hr IV TITR [facility]; Protocol Last Admin: 10/22/18 10:29 Dose: 5 mcg/kg/min, 2.749 mls/hr Documented by: Metoprolol Tartrate (Lopressor) 5 mg IV Q6H [facility] Multi-Ingred Cream/Lotion/Oil/Oint (Artificial Tears Ophth Oint) 1 applic OU Q4HR PRN PRN Reason: Dry Eye(s) Nitroglycerin (Nitrostat) 0.4 mg SL .Q5MIN PRN PRN Reason: Chest Pain Sodium Chloride (Sodium Chloride Flush Syringe 10 Ml) 10 ml IV BID [facility] Sodium Chloride (Sodium Chloride Flush Syringe 10 Ml) 10 ml IV PRN PRN PRN Reason: LINE FLUSH Review of Systems ROS unobtainable: due to endotracheal tube, due to mental status Physical Examination Vital Signs Temp Pulse Resp BP Pulse Ox 98.0 F 112 H 35 H 151/112 100 10/22/18 06:43 10/22/18 06:43 10/22/18 06:43 10/22/18 06:43 10/22/18 06:43 General appearance: other (intubated) Cardiac: Positive: Reg Rate and Rhythm, S1/S2 Lungs: Positive: Decreased Breath Sounds, Rales, Ventilated Respirations Neuro: Positive: Other (intubated) Musculoskeletal: No Pain Extremities: Absent: edema Results 10/22/18 07:32 10/22/18 10:05 Cardiac Enzymes 10/22/18 Range/Units 07:32 AST 43 H (5-40) units/L Coagulation 10/22/18 Range/Units 10:05 APTT 23.0 L (24.2-36.6) Sec. CBC 10/22/18 Range/Units 07:32 WBC 11.6 H (4.5-11.0) K/mm3 RBC 4.49 (3.65-5.03) M/mm3 Hgb 13.3 (10.1-14.3) gm/dl Hct 41.2 (30.3-42.9) % Plt Count 244 (140-440) K/mm3 Lymph # [employer] [place] # [employer] Eos # [employer] Baso # [employer] Comprehensive Metabolic Panel 10/22/18 10/22/18 10/22/18 Range/Units 07:03 07:32 10:05 Sodium 140 144 142 (137-145) mmol/L Potassium TNR 4.6 4.2 Chloride 103.0 104.9 108.1 H (98-107) mmol/L Carbon Dioxide 22 24 23 (22-30) mmol/L BUN 14 13 15 (7-17) mg/dL Creatinine 0.7 0.7 0.7 (0.7-1.2) mg/dL Glucose 318 H 306 H 277 H (65-100) mg/dL Calcium 8.7 9.1 7.7 L D (8.4-10.2) mg/dL AST 43 H (5-40) units/L ALT 38 (7-56) units/L Alkaline Phosphatase 113 (35-129) units/L Total Protein 6.7 (6.3-8.2) g/dL Albumin 4.1 (3.9-5) g/dL - Imaging and Cardiology Echo: report reviewed (TTE done 08/30/2018 showed EF 15-20%, LV mod dilated, LA mild to mod dilated, RV slightly dilated, oval calcified mass adherent to medial aspect of the RA wall, mod to severe MR, pulm HTN with RVSP 56mmHg. ) Cardiac cath: report reviewed (09/02/2018 showed normal coronaries, EF 25-30%. ) EKG: report reviewed, image reviewed EKG interpretations - Telemetry EKG Rhythm: Sinus Rhythm - EKG Sinus rhythms and dysrhythmias: sinus rhythm AV and intraventricular conduction: left bundle branch block Assessment and Plan Agree with present cardiac management. Cont supportive measures. F/u echo. The patient has been seen in conjunction with Dr. Rodas who agrees with the assessment and plan of care. - Patient Problems (1) Acute respiratory failure Current Visit: Yes Status: Acute (2) Acute HFrEF (heart failure with reduced ejection fraction) Current Visit: Yes Status: Acute (3) Nonischemic cardiomyopathy Current Visit: Yes Status: Chronic (4) Severe mitral regurgitation Current Visit: Yes Status: Chronic (5) HTN (hypertension) Current Visit: Yes Status: Chronic (6) Diabetes Current Visit: Yes Status: Chronic (7) Left bundle branch block Current Visit: Yes Status: Chronic (8) Pulmonary hypertension Current Visit: Yes Status: Chronic (9) UTI (urinary tract infection) Current Visit: Yes Status: Acute (10) Right atrial mass Current Visit: Yes Status: Chronic
[2018-10-22] MEDS: DUONEB *Not for PRN Use IH SCH (13:30)
[2018-10-22] MEDS ORDERED: LOPRESSOR IV SCH (14:00)
[2018-10-22] MEDS ORDERED: DIPRIVAN 10 MG/ML 1,000 MG/100 ML BOTTLE IV ONE ×3 (14:30→19:29)
[2018-10-22] MEDS ORDERED: MAXIPIME/NS 2 GM/100 ML 2 GM/100 ML BAG IV ONE (15:38)
[2018-10-22] MEDS: MAXIPIME/NS 2 GM/100 ML 2 GM/100 ML BAG IV SCH ×2 (15:44→22:26)
--- NOTE | 2018-10-22 16:16 | Consultation ---
History of Present Illness Consult date: 10/22/18 Requesting physician: LAUREEN HERNANDEZ Reason for consult: hypoxemia History of present illness: 58 y/o female, admitted last month with acute CHF, found to have EF somewhere between 15-30% admitted with hypoxic respiratory failure and acidemia. Patient's CXR appears to show florid pulmonary edema. She is currently sedated on Diprovan and no family is present at bedside. Given prior history, I have orderd stat echo. She is currently on 70% and 8 of PEEP Past History Past Medical History: diabetes, heart failure (systolic), hypertension, hyperlipidemia, other (LBBB, Mitral regurg, pneumonia) Past Surgical History: hysterectomy (partial), Other (Left breast lumpectomy) Social history: lives with family, full code, other (Alcohol occasionally, marijuana) Family history: no significant family history Medications and Allergies Allergies Allergy/AdvReac Type Severity Reaction Status Date / Time No Known Allergies Allergy Unverified 08/19/18 05:03 Home Medications Medication Instructions Recorded Confirmed Last Taken Type Aspirin [Aspirin BABY CHEW TAB] 81 mg PO QDAY #30 tab.chew 09/03/18 10/22/18 Unknown Rx ALBUTEROL Inhaler (OR & NICU) 2 puff IH QID PRN 10/22/18 10/22/18 Unknown History [Proair] Atorvastatin Calcium [Lipitor] 80 mg PO DAILY 10/22/18 10/22/18 Unknown History Cholecalciferol Vit D3 [Vitamin D3 1,000 unit PO QDAY 10/22/18 10/22/18 Unknown History 1,000 UNIT TAB] Ipratropium (Nf) [Atrovent] 2 puff IH Q6HR 10/22/18 10/22/18 Unknown History Lisinopril [Zestril] 20 mg PO QDAY 10/22/18 10/22/18 Unknown History Metoprolol Succinate [Toprol Xl] 100 mg PO DAILY 10/22/18 10/22/18 Unknown History Potassium Chloride [K-Dur] 20 meq PO QDAY 10/22/18 10/22/18 Unknown History Spironolactone 25 mg PO DAILY 10/22/18 10/22/18 Unknown History Venlafaxine [Effexor] 75 mg PO DAILY 10/22/18 10/22/18 Unknown History metFORMIN [Glucophage] 500 mg PO BID 10/22/18 10/22/18 Unknown History Active Meds: Active Medications Albuterol (Proventil) 2.5 mg IH Q3HRT PRN PRN Reason: Shortness Of Breath Albuterol/Ipratropium (Duoneb *Not For Prn Use*) 1 ampul IH Q6HRT [facility] Last Admin: 10/22/18 13:30 Dose: 1 ampul Documented by: Dextrose (D50w (25gm) Syringe) 50 ml IV PRN PRN PRN Reason: Hypoglycemia Furosemide (Lasix) 40 mg IV BID@0600,1800 [facility] Hydrophilic Ointment (Vaseline Lip Therapy) 1 applic TP Q2HR PRN PRN Reason: Dry Lips Cefepime HCl (Maxipime/Ns 2 Gm/100 Ml) 2 gm in 100 mls @ 200 mls/hr IV Q12HR [facility]; Protocol Last Admin: 10/22/18 15:44 Dose: 200 mls/hr Documented by: Propofol (Diprivan 10 Mg/Ml) 1,000 mg in 100 mls @ 2.749 mls/hr IV TITR [facility]; Protocol Last Admin: 10/22/18 10:29 Dose: 5 mcg/kg/min, 2.749 mls/hr Documented by: Metoprolol Tartrate (Lopressor) 5 mg IV Q6H [facility] Multi-Ingred Cream/Lotion/Oil/Oint (Artificial Tears Ophth Oint) 1 applic OU Q4HR PRN PRN Reason: Dry Eye(s) Nitroglycerin (Nitrostat) 0.4 mg SL .Q5MIN PRN PRN Reason: Chest Pain Sodium Chloride (Sodium Chloride Flush Syringe 10 Ml) 10 ml IV BID [facility] Sodium Chloride (Sodium Chloride Flush Syringe 10 Ml) 10 ml IV PRN PRN PRN Reason: LINE FLUSH Review of Systems ROS unobtainable: due to endotracheal tube, due to mental status Physical Examination Vital signs: Vital Signs Temp Pulse Resp BP Pulse Ox 98.0 F 112 H 35 H 151/112 100 10/22/18 06:43 10/22/18 06:43 10/22/18 06:43 10/22/18 06:43 10/22/18 06:43 General appearance: no acute distress (sedated) Eyes: non-icteric ENT: other (orally intubated) Neck: supple, JVD Ascultation: Bilateral: rales Cardiovascular: regular rate and rhythm Gastrointestinal: normoactive bowel sounds Results - Laboratory Findings CBC and BMP: 10/23/18 04:56 10/23/18 04:56 ABG POC ABG pH 7.175 (7.35-7.45) L 10/22/18 10:17 POC ABG pCO2 68.3 (35-45) H 10/22/18 10:17 POC ABG pO2 112 (80-105) H 10/22/18 10:17 POC ABG HCO3 25.2 10/22/18 10:17 POC ABG Total CO2 27 10/22/18 10:17 POC ABG O2 Sat 97 10/22/18 10:17 Abnormal lab findings: Abnormal Labs 10/22/18 10/22/18 10/22/18 07:03 07:32 07:32 WBC 11.6 H APTT POC ABG pH POC ABG pCO2 POC ABG pO2 Chloride Glucose 318 H 306 H Calcium AST 43 H NT-Pro-B Natriuret Pep Urine WBC (Auto) 10/22/18 10/22/18 10/22/18 07:32 08:35 10:05 WBC APTT 23.0 L POC ABG pH 7.091 L POC ABG pCO2 86.0 H POC ABG pO2 Chloride Glucose Calcium AST NT-Pro-B Natriuret Pep 2049 H Urine WBC (Auto) 10/22/18 10/22/18 10/22/18 10:05 10:07 10:17 WBC APTT POC ABG pH 7.175 L POC ABG pCO2 68.3 H POC ABG pO2 112 H Chloride 108.1 H Glucose 277 H Calcium 7.7 L D AST NT-Pro-B Natriuret Pep Urine WBC (Auto) 18.0 H - Diagnostic Findings Chest x-ray: image reviewed (pulmonary edema, mild cardiomegaly) Assessment and Plan 58 y/o female with acute respiratory failure, hypoxic secondary to pulmonary edema from leaky mitral valve. 1. Follow up echo results 2. Agree with BID lasix therapy 3. Ok with broad spec abx therapy for now. If repeat CXR shows marked improvement, less likely infection and should consider de-escalation 4. Increase PEEP To 12 and repeat ABG 5. Overall prognosis is guarded. CXR is markedly different from last hospital admission. If valve is worse, may need surgery/repair and then would require transfer. CCT 31 minutes.
[2018-10-22] MEDS ORDERED: LOPRESSOR IV ONE (17:11)
[2018-10-22] MEDS: LOPRESSOR IV SCH ×2 (17:24→22:15)
[2018-10-22] MEDS ORDERED: SUBLIMAZE IV PRN (19:23)
[2018-10-22] MEDS: fentaNYL DRIP Premix 2,000 MCG/100 ML BAG IV SCH ×2 (19:41→19:59)
[2018-10-22] MEDS ORDERED: LASIX ONE (19:50)
[2018-10-22] MEDS: LASIX IV SCH (19:59)
[2018-10-22] MEDS ORDERED: ZEMURON IV ONE (22:04)
[2018-10-22] MEDS ORDERED: AMIDATE IV ONE (22:04)
[2018-10-22] MEDS: SODIUM CHLORIDE FLUSH SYRINGE 10 ML IV SCH (22:15)
[2018-10-23] MEDS: DIPRIVAN 10 MG/ML 1,000 MG/100 ML BOTTLE IV SCH (00:34)
[2018-10-23] MEDS: fentaNYL DRIP Premix 2,000 MCG/100 ML BAG IV SCH (01:10)
--- NOTE | 2018-10-23 02:38 | XRay Report ---
FINAL REPORT EXAM: XR CHEST 1V AP HISTORY: follow up respiratory failure COMPARISON: October 22, 2017. FINDINGS: Frontal view(s) of the chest obtained. Stable mild cardiac enlargement. ETT has been placed. Distal t ip slightly high in position. Distal tip approximately 7 centimeters from the milla at the level of the clavicular heads. NG tube is present. Distal tip extends to the gastric cardia. Marked improved aeration of the lungs compared to prior study. Small consolidation may remain at the left lung base. No gross pneumothorax. IMPRESSION: Marked improved aeration of the lungs compared to prior study. ET tube slightly high in position but satisfactory. This could be advanced another 2-3 centimeters. D istal tip of the NG tube projects over the gastric cardia region and could be advanced another 5 cent imeters.
[2018-10-23 05:15] LABS: Basophils # (Auto) 0.1 K/mm3 (0.0-0.1); Basophils % (Auto) 0.9 % (0.0-1.8); Eosinophils % (Auto) 0.2 % (0.0-4.3); Hematocrit 36.5 % (30.3-42.9); Hemoglobin 11.9 gm/dl (10.1-14.3); Lymphocytes # (Auto) 2.4 K/mm3 (1.2-5.4); Lymphocytes % (Auto) 27.1 % (13.4-35.0); Mean Corpuscular HGB Conc 33 % (30-34); Mean Corpuscular Volume 92 fl (79-97); Monocytes # (Auto) 0.9 K/mm3 (0.0-0.8); Monocytes % (Auto) 10.4 % (0.0-7.3); Platelet Count 109 K/mm3 (140-440); Red Blood Count 3.97 M/mm3 (3.65-5.03); Red Cell Distribution Width 15.3 % (13.2-15.2)
[2018-10-23] MEDS: LASIX IV SCH ×2 (05:26→18:58)
[2018-10-23] MEDS: LOPRESSOR IV SCH ×4 (05:26→21:43)
[2018-10-23 05:37] LABS: BUN/Creatinine Ratio 17; Blood Urea Nitrogen 12 mg/dL (7-17); Hemolysis Index 36
[2018-10-23] MEDS: DUONEB *Not for PRN Use IH SCH ×4 (08:05→20:29)
--- NOTE | 2018-10-23 08:36 | XRay Report ---
AP CHEST: HISTORY: Check endotracheal tube after advancement The endotracheal tube has been advanced by 1.5 cm since earlier today at 0211 hours and now terminates 5.5 cm superior to the milla. There is adequate pulmonary inflation bilaterally. The lungs are generally clear. Heart size is within normal limits. No acute process is noted. IMPRESSION: Endotracheal tube as described. No acute cardiopulmonary process is identified.
--- NOTE | 2018-10-23 08:36 | XRay Report ---
AP ABDOMEN: HISTORY: Confirm OG tube placement. The OG tube terminates in the antrum of the stomach. The abdominal gas pattern is unremarkable. No masses or organomegaly is identified and there is no gross evidence of free air or fluid. No significant soft tissue calcifications are noted. IMPRESSION: Unremarkable abdomen.
--- NOTE | 2018-10-23 09:37 | Progress Note ---
Assessment and Plan Assessment and plan: Acute resp failure. Intubated in ED because of resp distress Admitted to ICU Pulmonology following SIRS vs SIRS Blood cultures drawn started Cefepime in ED also given vancomycin, azithromycin in ED Consulted ID Physician Bilateral infiltrates Pneumonia vs pulm edema Stated on Cefepime BNP elevated UTI Acute on chronic systolic CHF lasix iv bid EF 25-30% on Echo last month consult cardiology Poss COPD exacerbation son at bedside denies history of COPD Diabetes mellitus type 2. Fingerstick glucose qac and hs Full code History Interval history: Patient admitted with acute resp failure, intubated Still intubated Hospitalist Physical - Physical exam Narrative exam: GEN: Intubated, lying in bed,obese HEENT: Normocephalic, atraumatic, Neck: supple, No JVD Lungs: Bilateral basal crackles, no wheeze Heart:S1 and S2 regular, no murmurs, rubs or gallop, Abd:soft, non tender, non distended, normal bowel sounds Ext: Bilateral pedal edema, no clubbing or cyanosis Neuro: Intubated, opens eyes, follows commands, moves all ext, mild agitation - Constitutional Vitals: Temp Pulse Resp BP Pulse Ox 99.8 F H 109 H 16 107/56 100 10/23/18 04:00 10/23/18 08:07 10/23/18 08:07 10/23/18 08:07 10/23/18 08:07 General appearance: Present: other (intubated) Results - Labs CBC & Chem 7: 10/23/18 04:56 10/23/18 04:56 Labs: Laboratory Last Values WBC 8.7 K/mm3 (4.5-11.0) 10/23/18 04:56 RBC 3.97 M/mm3 (3.65-5.03) 10/23/18 04:56 Hgb 11.9 gm/dl (10.1-14.3) 10/23/18 04:56 Hct 36.5 % (30.3-42.9) 10/23/18 04:56 MCV 92 fl (79-97) 10/23/18 04:56 MCH 30 pg (28-32) 10/23/18 04:56 MCHC 33 % (30-34) 10/23/18 04:56 RDW 15.3 % (13.2-15.2) H 10/23/18 04:56 Plt Count 109 K/mm3 (140-440) L 10/23/18 04:56 Lymph % (Auto) 27.1 % (13.4-35.0) 10/23/18 04:56 [place] % (Auto) 10.4 % (0.0-7.3) H 10/23/18 04:56 Eos % (Auto) 0.2 % (0.0-4.3) 10/23/18 04:56 Baso % (Auto) 0.9 % (0.0-1.8) 10/23/18 04:56 Lymph # 2.4 K/mm3 (1.2-5.4) 10/23/18 04:56 [place] # 0.9 K/mm3 (0.0-0.8) H 10/23/18 04:56 Eos # 0.0 K/mm3 (0.0-0.4) 10/23/18 04:56 Baso # 0.1 K/mm3 (0.0-0.1) 10/23/18 04:56 Seg Neutrophils % 61.4 % (40.0-70.0) 10/23/18 04:56 Seg Neutrophils # 5.4 K/mm3 (1.8-7.7) 10/23/18 04:56 APTT 23.0 Sec. (24.2-36.6) L 10/22/18 10:05 POC ABG pH 7.390 (7.35-7.45) 10/23/18 05:43 POC ABG pCO2 44.0 (35-45) 10/23/18 05:43 POC ABG pO2 116 (80-105) H 10/23/18 05:43 POC ABG HCO3 26.6 10/23/18 05:43 POC ABG Total CO2 28 10/23/18 05:43 POC ABG O2 Sat 98 10/23/18 05:43 POC ABG Base Excess 2 10/23/18 05:43 FiO2 45 % 10/23/18 05:43 Sodium 143 mmol/L (137-145) 10/23/18 04:56 Potassium 3.5 mmol/L (3.6-5.0) L 10/23/18 04:56 Chloride 107.0 mmol/L (98-107) 10/23/18 04:56 Carbon Dioxide 23 mmol/L (22-30) 10/23/18 04:56 Anion Gap 17 mmol/L 10/23/18 04:56 BUN 12 mg/dL (7-17) 10/23/18 04:56 Creatinine 0.7 mg/dL (0.7-1.2) 10/23/18 04:56 Estimated GFR > 60 ml/min 10/23/18 04:56 BUN/Creatinine Ratio 17 % 10/23/18 04:56 Glucose 96 mg/dL (65-100) 10/23/18 04:56 POC Glucose 92 (70-105) 10/23/18 05:49 Lactic Acid 1.30 mmol/L (0.7-2.0) 10/22/18 10:05 Calcium 8.0 mg/dL (8.4-10.2) L 10/23/18 04:56 Total Bilirubin 0.30 mg/dL (0.1-1.2) 10/22/18 07:32 AST 43 units/L (5-40) H 10/22/18 07:32 ALT 38 units/L (7-56) 10/22/18 07:32 Alkaline Phosphatase 113 units/L (35-129) 10/22/18 07:32 Troponin T < 0.010 ng/mL (0.00-0.029) 10/22/18 07:32 NT-Pro-B Natriuret Pep 2049 pg/mL (0-900) H 10/22/18 07:32 Total Protein 6.7 g/dL (6.3-8.2) 10/22/18 07:32 Albumin 4.1 g/dL (3.9-5) 10/22/18 07:32 Albumin/Globulin Ratio 1.6 % 10/22/18 07:32 Urine Color Yellow (Yellow) 10/22/18 10:07 Urine Turbidity Cloudy (Clear) 10/22/18 10:07 Urine pH 5.0 (5.0-7.0) 10/22/18 10:07 Ur Specific [place] 1.019 (1.003-1.030) 10/22/18 10:07 Urine Protein 100 mg/dl mg/dL (Negative) 10/22/18 10:07 Urine Glucose (UA) 150 mg/dL (Negative) 10/22/18 10:07 Urine Ketones Neg mg/dL (Negative) 10/22/18 10:07 Urine Blood Lg (Negative) 10/22/18 10:07 Urine Nitrite Neg (Negative) 10/22/18 10:07 Urine Bilirubin Neg (Negative) 10/22/18 10:07 Urine Urobilinogen < 2.0 mg/dL (<2.0) 10/22/18 10:07 Ur Leukocyte Esterase Neg (Negative) 10/22/18 10:07 Urine WBC (Auto) 18.0 /HPF (0.0-6.0) H 10/22/18 10:07 Urine RBC (Auto) 6.0 /HPF (0.0-6.0) 10/22/18 10:07 U Epithel Cells (Auto) 1.0 /HPF (0-13.0) 10/22/18 10:07 Urine Bacteria (Auto) 3+ /HPF (Negative) 10/22/18 10:07 Urine Mucus Few /HPF 10/22/18 10:07
[2018-10-23] MEDS: PEPCID IV SCH ×2 (09:50→21:43)
[2018-10-23] MEDS: KCL 10MEQ/100ML 10 MEQ/100 ML BAG IV SCH ×2 (09:51→12:24)
[2018-10-23] MEDS: MAXIPIME/NS 2 GM/100 ML 2 GM/100 ML BAG IV SCH (10:15)
[2018-10-23] MEDS: SODIUM CHLORIDE FLUSH SYRINGE 10 ML IV SCH ×2 (10:27→21:44)
--- NOTE | 2018-10-23 11:41 | Progress Note ---
Assessment and Plan Echo reviewed - EF 20-25%, mild LVH, moderately large echodensity on RA which appears attached to anterior wall of RA, mild AR, moderately severe MR, no MS, mod sized left pleural effusion. Cont present cardiac management. Given CMP and LBBB, will plan to evaluate for Bi-V AICD candidacy as OP. The patient has been seen in conjunction with Dr. Rodas who agrees with the assessment and plan of care. - Patient Problems (1) Acute respiratory failure Current Visit: Yes Status: Acute (2) Acute HFrEF (heart failure with reduced ejection fraction) Current Visit: Yes Status: Acute (3) Nonischemic cardiomyopathy Current Visit: Yes Status: Chronic (4) Severe mitral regurgitation Current Visit: Yes Status: Chronic (5) HTN (hypertension) Current Visit: Yes Status: Chronic (6) Diabetes Current Visit: Yes Status: Chronic (7) Left bundle branch block Current Visit: Yes Status: Chronic (8) Pulmonary hypertension Current Visit: Yes Status: Chronic (9) UTI (urinary tract infection) Current Visit: Yes Status: Acute (10) Right atrial mass Current Visit: Yes Status: Chronic Subjective Date of service: 10/23/18 Principal diagnosis: HF Interval history: pt remains intubated, alert. in SR/ST on tele. Objective Last Vital Signs Temp 99.8 F H 10/23/18 04:00 Pulse 111 H 10/23/18 09:50 Resp 20 10/23/18 08:17 BP 130/83 10/23/18 11:08 Pulse Ox 100 10/23/18 11:08 - Physical Examination General: Other (intubated, alert) HEENT: Positive: PERRL Cardiac: Positive: Reg Rate and Rhythm, S1/S2, Systolic Murmur Lungs: Positive: Decreased Breath Sounds Neuro: Positive: Other (intubated) Musculoskeletal: No Pain Extremities: Absent: edema - Labs and Meds CBC 10/23/18 Range/Units 04:56 WBC 8.7 (4.5-11.0) K/mm3 RBC 3.97 (3.65-5.03) M/mm3 Hgb 11.9 (10.1-14.3) gm/dl Hct 36.5 (30.3-42.9) % Plt Count 109 L (140-440) K/mm3 Lymph # 2.4 (1.2-5.4) K/mm3 [place] # 0.9 H (0.0-0.8) K/mm3 Eos # 0.0 (0.0-0.4) K/mm3 Baso # 0.1 (0.0-0.1) K/mm3 Comprehensive Metabolic Panel 10/23/18 Range/Units 04:56 Sodium 143 (137-145) mmol/L Potassium 3.5 L (3.6-5.0) mmol/L Chloride 107.0 (98-107) mmol/L Carbon Dioxide 23 (22-30) mmol/L BUN 12 (7-17) mg/dL Creatinine 0.7 (0.7-1.2) mg/dL Glucose 96 (65-100) mg/dL Calcium 8.0 L (8.4-10.2) mg/dL - Imaging and Cardiology EKG: report reviewed, image reviewed Echo: report reviewed (TTE done 08/30/2018 showed EF 15-20%, LV mod dilated, LA mild to mod dilated, RV slightly dilated, oval calcified mass adherent to medial aspect of the RA wall, mod to severe MR, pulm HTN with RVSP 56mmHg. ) Cardiac cath: report reviewed (09/02/2018 showed normal coronaries, EF 25-30%. ) - Telemetry EKG Rhythm: Sinus Rhythm - EKG Sinus rhythms and dysrhythmias: sinus rhythm AV and intraventricular conduction: left bundle branch block
[2018-10-23] MEDS ORDERED: POTASSIUM CHLORIDE FEEDTUBE ONE (12:00)
--- NOTE | 2018-10-23 12:24 | Progress Note ---
Assessment and Plan 58 y/o female with acute respiratory failure, hypoxic secondary to pulmonary edema from leaky mitral valve. 1. leaky mitral valve 2. continue BID lasix therapy 3. stop abx 4. PSV trial 5. attempt extubation CCT 31 minutes. Subjective Date of service: 10/23/18 Principal diagnosis: HF Interval history: sedation off. awake and alert. no family at bedside Objective Vital Signs - 12hr 10/23/18 10/23/18 10/23/18 03:08 03:10 04:00 Temperature 99.8 F H Pulse Rate 92 H Pulse Rate [ Anterior Bilateral Throughout] Respiratory Rate [Anterior Bilateral Throughout] Blood Pressure O2 Sat by Pulse 100 100 Oximetry 10/23/18 10/23/18 10/23/18 05:47 08:07 08:17 Temperature Pulse Rate Pulse Rate [ 109 H 104 H Anterior Bilateral Throughout] Respiratory 16 20 Rate [Anterior Bilateral Throughout] Blood Pressure 107/56 O2 Sat by Pulse 98 100 Oximetry 10/23/18 10/23/18 09:50 11:08 Temperature Pulse Rate 111 H Pulse Rate [ Anterior Bilateral Throughout] Respiratory Rate [Anterior Bilateral Throughout] Blood Pressure 112/66 130/83 O2 Sat by Pulse 100 Oximetry Constitutional: no acute distress (sedated) Eyes: non-icteric ENT: other (orally intubated) Neck: supple, JVD Ascultation: Bilateral: rales Cardiovascular: regular rate and rhythm Gastrointestinal: normoactive bowel sounds CBC and BMP: 10/23/18 04:56 10/23/18 04:56 ABG, PT/INR, D-dimer: ABG POC ABG pH 7.390 (7.35-7.45) 10/23/18 05:43 POC ABG pCO2 44.0 (35-45) 10/23/18 05:43 POC ABG pO2 116 (80-105) H 10/23/18 05:43 POC ABG HCO3 26.6 10/23/18 05:43 POC ABG Total CO2 28 10/23/18 05:43 POC ABG O2 Sat 98 10/23/18 05:43 Abnormal lab findings: Abnormal Labs 10/22/18 10/22/18 10/22/18 07:03 07:32 07:32 WBC 11.6 H RDW Plt Count [place] % (Auto) [place] # APTT POC ABG pH POC ABG pCO2 POC ABG pO2 Potassium Chloride Glucose 318 H 306 H Calcium AST 43 H NT-Pro-B Natriuret Pep Urine WBC (Auto) 10/22/18 10/22/18 10/22/18 07:32 08:35 10:05 WBC RDW Plt Count [place] % (Auto) [place] # APTT 23.0 L POC ABG pH 7.091 L POC ABG pCO2 86.0 H POC ABG pO2 Potassium Chloride Glucose Calcium AST NT-Pro-B Natriuret Pep 2049 H Urine WBC (Auto) 10/22/18 10/22/18 10/22/18 10:05 10:07 10:17 WBC RDW Plt Count [place] % (Auto) [place] # APTT POC ABG pH 7.175 L POC ABG pCO2 68.3 H POC ABG pO2 112 H Potassium Chloride 108.1 H Glucose 277 H Calcium 7.7 L D AST NT-Pro-B Natriuret Pep Urine WBC (Auto) 18.0 H 10/22/18 10/23/18 10/23/18 16:12 04:56 04:56 WBC RDW 15.3 H Plt Count 109 L [place] % (Auto) 10.4 H [place] # 0.9 H APTT POC ABG pH POC ABG pCO2 POC ABG pO2 147 H Potassium 3.5 L Chloride Glucose Calcium 8.0 L AST NT-Pro-B Natriuret Pep Urine WBC (Auto) 10/23/18 05:43 WBC RDW Plt Count [place] % (Auto) [place] # APTT POC ABG pH POC ABG pCO2 POC ABG pO2 116 H Potassium Chloride Glucose Calcium AST NT-Pro-B Natriuret Pep Urine WBC (Auto)
--- NOTE | 2018-10-23 13:59 | Consultation ---
History of Present Illness - Reason for Consult Consult date: 10/23/18 bilateral inflitrates poss pneumonia Requesting physician: BERNA BURGOS - History of Present Illness 58 y/o female with history of CHF, NICMP, severe MR, HTN, DM, obesity; recently admitted to [facility] from 08/27-09/03/2018 due to right middle lobe pneumonia and COPD exacerbation. Blood cultures remain negative. Patient received IV antibiotics, IV steroids and breathing treatments. Noted to have persistent sinus tachycardia. HOMERO done 09/02/2018 showed severe MR, EF 25-30%, calcified echodensity in the RA. Unforetuanately, she was re-admitted on 10/22/2018 due to 5-hour history worsening SOB. Patient reports a recent cold. Interview is limited since patient is intubated, but alert and following commands. In the ED, temp 98, HR 112, R35, BP 151/112. WBC 11.6. HG 13. Plat 244. Glucose 318. Creat 0.7. BNP 2049. UA 18 wbc and negative LE. Blood culture 10/22/2018 no growth today. Sputum 10/22/2018 usual resp alexsandra. Urine culture 10/22/2018 neg. CXR showed multifocal airspace disease is most confluent in the right perihilar region with air bronchograms. Review of Systems: limited due to intubation General: no fever, chills, nightsweats, unintentional weight change, or change in appetite Cutaneous: no rash, pruritus Head: no headaches or injury Eyes: no changes in vision, eye pain, double vision Ears: no ear pain, ear discharge, ringing or hearing loss Nose: no nose bleeding, stuffiness Mouth & throat: no bleeding gums, no horseness, no dental problems, or swollen glands Neck: no pain, node enlargement/lumps, tyroid enlargement or tenderness Respiratory: no cough, wheezing, sputum, hemoptysis, pleuritic chest pain +SOB Cardiovascular: no chest pain, leg edema, cyanosis, PEREA, orthopnea Musculoskeletal: no decreased joint motion, bone or joint pain, joint swelling, muscle aches Gastrointestinal: no nausea, vomiting, hematemesis, diarrhea, constipation, hanna saihl, bright red blood in stools, fecal incontinence, jaundice Genitourinary/Reproductive: no frequent urination, dysuria, hematuria, incontinence Neurogical: no seizures, no headaches, no weakness, no paresthesias, no loss of speech or vision; no memory loss, no vertigo, no tremors, no numbness Psychiatric: stable mood; no excessive anxiety, sadness or moodiness Past History Past Medical History: diabetes, heart failure (systolic), hypertension, hyperlipidemia, other (LBBB, Mitral regurg, pneumonia) Past Surgical History: hysterectomy (partial), Other (Left breast lumpectomy) Social history: lives with family, full code, other (Alcohol occasionally, marijuana) Family history: no significant family history Medications and Allergies Allergies Allergy/AdvReac Type Severity Reaction Status Date / Time No Known Allergies Allergy Unverified 08/19/18 05:03 Home Medications Medication Instructions Recorded Confirmed Last Taken Type Aspirin [Aspirin BABY CHEW TAB] 81 mg PO QDAY #30 tab.chew 09/03/18 10/22/18 Unknown Rx ALBUTEROL Inhaler (OR & NICU) 2 puff IH QID PRN 10/22/18 10/22/18 Unknown History [Proair] Atorvastatin Calcium [Lipitor] 80 mg PO DAILY 10/22/18 10/22/18 Unknown History Cholecalciferol Vit D3 [Vitamin D3 1,000 unit PO QDAY 10/22/18 10/22/18 Unknown History 1,000 UNIT TAB] Ipratropium (Nf) [Atrovent] 2 puff IH Q6HR 10/22/18 10/22/18 Unknown History Lisinopril [Zestril] 20 mg PO QDAY 10/22/18 10/22/18 Unknown History Metoprolol Succinate [Toprol Xl] 100 mg PO DAILY 10/22/18 10/22/18 Unknown History Potassium Chloride [K-Dur] 20 meq PO QDAY 10/22/18 10/22/18 Unknown History Spironolactone 25 mg PO DAILY 10/22/18 10/22/18 Unknown History Venlafaxine [Effexor] 75 mg PO DAILY 10/22/18 10/22/18 Unknown History metFORMIN [Glucophage] 500 mg PO BID 10/22/18 10/22/18 Unknown History Active Meds: Active Medications Albuterol (Proventil) 2.5 mg IH Q3HRT PRN PRN Reason: Shortness Of Breath Albuterol/Ipratropium (Duoneb *Not For Prn Use*) 1 ampul IH Q6HRT [facility] Last Admin: 10/23/18 08:06 Dose: 1 ampul Documented by: Dextrose (D50w (25gm) Syringe) 50 ml IV PRN PRN PRN Reason: Hypoglycemia Famotidine (Pepcid) 20 mg IV BID [facility] Last Admin: 10/23/18 09:50 Dose: 20 mg Documented by: Fentanyl (Sublimaze) 50 mcg IV Q10MIN PRN PRN Reason: ANALGESIA Furosemide (Lasix) 40 mg IV BID@0600,1800 [facility] Last Admin: 10/23/18 05:26 Dose: 40 mg Documented by: Hydrophilic Ointment (Vaseline Lip Therapy) 1 applic TP Q2HR PRN PRN Reason: Dry Lips Propofol (Diprivan 10 Mg/Ml) 1,000 mg in 100 mls @ 2.749 mls/hr IV TITR [facility]; Protocol Last Titration: 10/23/18 07:10 Dose: 0 mcg/kg/min, 0 mls/hr Documented by: Fentanyl Citrate (Fentanyl Drip Premix) 2,000 mcg in 100 mls @ 4.581 mls/hr IV TITR [facility]; Protocol Last Titration: 10/23/18 10:09 Dose: 0 mcg/kg/hr, 0 mls/hr Documented by: Metoprolol Tartrate (Lopressor) 5 mg IV Q6H [facility] Last Admin: 10/23/18 09:50 Dose: 5 mg Documented by: Multi-Ingred Cream/Lotion/Oil/Oint (Artificial Tears Ophth Oint) 1 applic OU Q4HR PRN PRN Reason: Dry Eye(s) Nitroglycerin (Nitrostat) 0.4 mg SL .Q5MIN PRN PRN Reason: Chest Pain Sodium Chloride (Sodium Chloride Flush Syringe 10 Ml) 10 ml IV BID [facility] Last Admin: 10/23/18 10:27 Dose: 10 ml Documented by: Sodium Chloride (Sodium Chloride Flush Syringe 10 Ml) 10 ml IV PRN PRN PRN Reason: LINE FLUSH Physical Examination - Physical Exam Narrative exam: General appearance: Alert in NAD, follows commands intubated Eyes: anicteric sclerae, moist conjunctivae; no lid-lag; PERRLA HENT: Atraumatic; oropharynx +ETT Neck: Trachea midline; supple, no thyromegaly or lymphadenopathy Lungs: CTA CV: RRR Abdomen: Soft, non-tender; no masses or hepatosplenomegaly Extremities: No peripheral edema or extremity lymphadenopathy Skin: Normal temperature, turgor and texture; no rash, ulcers or subcutaneous nodules Psych: Appropriate affect, alert and oriented to person, place and time. Neuro: alert and oriented x 1 on the vent - Constitutional Vitals: Vital Signs Temp Pulse Resp BP Pulse Ox 99.8 F H 98 H 17 133/85 99 10/23/18 04:00 10/23/18 12:30 10/23/18 12:30 10/23/18 12:30 10/23/18 12:30 Temperature -Last 24 Hours Temperature 99.8 F Temperature 98.6 F Temperature 97.8 F Temperature 98.4 F Temperature 97.1 F Results - Labs CBC & Chem 7: 10/23/18 04:56 10/23/18 04:56 Labs: Abnormal lab results 10/22/18 10/23/18 10/23/18 Range/Units 16:12 04:56 04:56 RDW 15.3 H (13.2-15.2) % Plt Count 109 L (140-440) K/mm3 Garrett % (Auto) 10.4 H (0.0-7.3) % Garrett # 0.9 H (0.0-0.8) K/mm3 POC ABG pO2 147 H (80-105) Potassium 3.5 L (3.6-5.0) mmol/L Calcium 8.0 L (8.4-10.2) mg/dL 10/23/18 Range/Units 05:43 RDW (13.2-15.2) % Plt Count (140-440) K/mm3 Garrett % (Auto) (0.0-7.3) % Garrett # (0.0-0.8) K/mm3 POC ABG pO2 116 H (80-105) Potassium (3.6-5.0) mmol/L Calcium (8.4-10.2) mg/dL Assessment and Plan Cultures: Blood culture 10/22/2018 no growth today. Sputum 10/22/2018 usual resp alexsandra. Urine culture 10/22/2018 neg. Assessment: 58 y/o female with history of CHF, NICMP, severe MR, HTN, DM, obesity; recently admitted to [facility] from 08/27-09/03/2018 due to right middle lobe pneumonia and COPD exacerbation Patient received IV antibiotics, IV steroids and breathing treatments. Noted to have persistent sinus tachycardia. HOMERO done 09/02/2018 showed severe MR, EF 25-30%, calcified echodensity in the RA. Unfortunately, she was re-admitted on 10/22/2018 due to 5-hour history worsening SOB. 1) SIRS: Present on admission, manifested by tachycardia, mild leukocytosis. Etiology most likely CHF exacerbation, less likely pneumonia . 2) CHF exacerbations versus pneumonia: no evidence of fever, mild leukocytosis resolved. Doubt pneumonia. CXR showed multifocal airspace disease is most confluent in the right perihilar region with air bronchograms. 3) Pyuria: UA w/o leukocytes esterase, Urine culture 10/22/2018 neg. 4) DM- uncontrolled. Recommendations: - was on cefepime, vancomycin and azithromycin- all stopped - monitor off antibiotics - f/o procalcitonin - sent Will follow. Genet Bales MD Infectious Diseases Male Impersonator [facility] M [phone] O [phone]
[2018-10-24] MEDS: DUONEB *Not for PRN Use IH SCH ×4 (02:42→19:39)
[2018-10-24] MEDS: LOPRESSOR IV SCH ×2 (02:47→09:52)
[2018-10-24] MEDS: LASIX IV SCH ×2 (06:12→18:31)
[2018-10-24] MEDS: PEPCID IV SCH ×2 (09:52→21:53)
[2018-10-24] MEDS: SODIUM CHLORIDE FLUSH SYRINGE 10 ML IV SCH ×2 (09:54→21:53)
--- NOTE | 2018-10-24 10:55 | Progress Note ---
Assessment and Plan Cultures: Blood culture 10/22/2018 no growth today. Sputum 10/22/2018 usual resp alexsandra. Urine culture 10/22/2018 neg. Assessment: 58 y/o female with history of CHF, NICMP, severe MR, HTN, DM, obesity; recently admitted to [facility] from 08/27-09/03/2018 due to right middle lobe pneumonia and COPD exacerbation Patient received IV antibiotics, IV steroids and breathing treatments. Noted to have persistent sinus tachycardia. HOMERO done 09/02/2018 showed severe MR, EF 25-30%, calcified echodensity in the RA. Unfortunately, she was re-admitted on 10/22/2018 due to 5-hour history worsening SOB. 1) SIRS: Resolved, manifested by tachycardia, mild leukocytosis. Etiology most likely CHF exacerbation, less likely pneumonia . 2) CHF exacerbations versus pneumonia: no evidence of fever, mild leukocytosis resolved. Doubt pneumonia. CXR showed multifocal airspace disease is most confluent in the right perihilar region with air bronchograms. 3) Pyuria: UA w/o leukocytes esterase, Urine culture 10/22/2018 neg. 4) DM- uncontrolled. Recommendations: - monitor off antibiotics - f/o procalcitonin - sent -Clinically stable -ID is signing off [facility] M: [phone] O:[phone] Subjective Date of service: 10/24/18 Principal diagnosis: HF Interval history: Patient seen and examined. Denied generalized pain, fevers or rashes. Stated that she was feeling much better today. Objective - Exam Narrative Exam: General appearance: Alert in NAD, no acute distress Eyes: anicteric sclerae, moist conjunctivae; no lid-lag; PERRLA HENT: Atraumatic; oropharynx Neck: Trachea midline; supple, no thyromegaly or lymphadenopathy Lungs: CTA CV: RRR Abdomen: Soft, non-tender; no masses or hepatosplenomegaly Extremities: No peripheral edema or extremity lymphadenopathy Skin: Normal temperature, turgor and texture; no rash, ulcers or subcutaneous nodules Psych: Appropriate affect, alert and oriented to person, place and time. Neuro: alert and oriented - Constitutional Vitals: Vital Signs Temp Pulse Resp BP Pulse Ox 98.3 F 92 H 18 115/73 98 10/24/18 07:52 10/24/18 08:35 10/24/18 08:35 10/24/18 07:52 10/24/18 09:17 Temperature -Last 24 Hours Temperature 98.3 F Temperature 98.7 F Temperature 99.1 F Temperature 98.7 F Temperature 99.1 F - Labs CBC & Chem 7: 10/23/18 04:56 10/23/18 04:56 Labs: Abnormal lab results 10/24/18 Range/Units 04:58 POC Glucose 118 H (70-105)
--- NOTE | 2018-10-24 11:10 | Progress Note ---
Assessment and Plan Cont IV lasix BID. Resume home PO cardiac regimen now that enteral intake has been resumed. Cardiac defibrillator recommended in setting of CMP. Pt would likely require Bi- V AICD due to LBBB. 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 LifeVest ordered. The patient has been seen in conjunction with Dr. Rodas who agrees with the assessment and plan of care. - Patient Problems (1) Acute respiratory failure Current Visit: Yes Status: Acute (2) Acute HFrEF (heart failure with reduced ejection fraction) Current Visit: Yes Status: Acute (3) Nonischemic cardiomyopathy Current Visit: Yes Status: Chronic (4) Severe mitral regurgitation Current Visit: Yes Status: Chronic (5) HTN (hypertension) Current Visit: Yes Status: Chronic (6) Diabetes Current Visit: Yes Status: Chronic (7) Left bundle branch block Current Visit: Yes Status: Chronic (8) Pulmonary hypertension Current Visit: Yes Status: Chronic (9) UTI (urinary tract infection) Current Visit: Yes Status: Acute (10) Right atrial mass Current Visit: Yes Status: Chronic Subjective Date of service: 10/24/18 Principal diagnosis: HF Interval history: pt resting comfortably in bed, she was extubated yesterday. no current complaints. states she is feeling better. Objective Last Vital Signs Temp 98.3 F 10/24/18 07:52 Pulse 92 H 10/24/18 08:35 Resp 18 10/24/18 08:35 BP 115/73 10/24/18 07:52 Pulse Ox 98 10/24/18 09:17 - Physical Examination General: No Apparent Distress HEENT: Positive: PERRL Cardiac: Positive: Reg Rate and Rhythm, S1/S2 Lungs: Positive: Decreased Breath Sounds Neuro: Positive: Grossly Intact Musculoskeletal: No Pain Extremities: Absent: edema - Imaging and Cardiology EKG: report reviewed, image reviewed Echo: report reviewed (09/2018: EF 20-25%, mild LVH, moderately large echodensity on RA which appears attached to anterior wall of RA, mild AR, moderately severe MR, no MS, mod sized left pleural effusion. TTE done 08/30/2018 showed EF 15-20%, LV mod dilated, LA mild to mod dilated, RV slightly dilated, oval calcified mass adherent to medial aspect of the RA wall, mod to severe MR, pulm HTN with RVSP 56mmHg. ) Cardiac cath: report reviewed (09/02/2018 showed normal coronaries, EF 25-30%. ) - EKG Sinus rhythms and dysrhythmias: sinus rhythm AV and intraventricular conduction: left bundle branch block
--- NOTE | 2018-10-24 13:20 | Progress Note ---
Assessment and Plan 58 y/o female with acute respiratory failure, hypoxic secondary to pulmonary edema from leaky mitral valve. 1. Continue daily net negative state 2. CMP per cards 3. Will need walk test, oxygen assessment prior to discharge. 4. Will sign off, call if questions. Subjective Date of service: 10/24/18 Principal diagnosis: HF Interval history: Successful extubation on yesterday and with need for beds, patient was stable enough for transfer out of unit. No respiratory distress and satting well on 2 liters NC Objective Vital Signs - 12hr 10/24/18 10/24/18 10/24/18 02:43 02:47 02:58 Temperature 99.1 F Pulse Rate 98 H 92 H Pulse Rate [ 90 92 H Anterior Bilateral Throughout] Respiratory 20 Rate Respiratory 20 20 Rate [Anterior Bilateral Throughout] Blood Pressure 113/71 113/71 O2 Sat by Pulse 98 Oximetry 10/24/18 10/24/18 10/24/18 04:55 07:52 08:25 Temperature 98.7 F 98.3 F Pulse Rate 91 H 91 H Pulse Rate [ 90 Anterior Bilateral Throughout] Respiratory 17 20 Rate Respiratory 18 Rate [Anterior Bilateral Throughout] Blood Pressure 106/62 115/73 O2 Sat by Pulse 94 95 Oximetry 10/24/18 10/24/18 10/24/18 08:35 09:17 11:21 Temperature 98.3 F Pulse Rate 98 H Pulse Rate [ 92 H Anterior Bilateral Throughout] Respiratory 20 Rate Respiratory 18 Rate [Anterior Bilateral Throughout] Blood Pressure 113/72 O2 Sat by Pulse 98 97 Oximetry Constitutional: no acute distress (sedated) Eyes: non-icteric Neck: supple, JVD Ascultation: Bilateral: rales Cardiovascular: regular rate and rhythm Gastrointestinal: normoactive bowel sounds CBC and BMP: 10/23/18 04:56 10/23/18 04:56 ABG, PT/INR, D-dimer: ABG POC ABG pH 7.390 (7.35-7.45) 10/23/18 05:43 POC ABG pCO2 44.0 (35-45) 10/23/18 05:43 POC ABG pO2 116 (80-105) H 10/23/18 05:43 POC ABG HCO3 26.6 10/23/18 05:43 POC ABG Total CO2 28 10/23/18 05:43 POC ABG O2 Sat 98 10/23/18 05:43 Abnormal lab findings: Abnormal Labs 10/22/18 10/22/18 10/22/18 07:03 07:32 07:32 WBC 11.6 H RDW Plt Count [place] % (Auto) [place] # APTT POC ABG pH POC ABG pCO2 POC ABG pO2 Potassium Chloride Glucose 318 H 306 H POC Glucose Calcium AST 43 H NT-Pro-B Natriuret Pep Urine WBC (Auto) 10/22/18 10/22/18 10/22/18 07:32 08:35 10:05 WBC RDW Plt Count [place] % (Auto) [place] # APTT 23.0 L POC ABG pH 7.091 L POC ABG pCO2 86.0 H POC ABG pO2 Potassium Chloride Glucose POC Glucose Calcium AST NT-Pro-B Natriuret Pep 2049 H Urine WBC (Auto) 10/22/18 10/22/18 10/22/18 10:05 10:07 10:17 WBC RDW Plt Count [place] % (Auto) [place] # APTT POC ABG pH 7.175 L POC ABG pCO2 68.3 H POC ABG pO2 112 H Potassium Chloride 108.1 H Glucose 277 H POC Glucose Calcium 7.7 L D AST NT-Pro-B Natriuret Pep Urine WBC (Auto) 18.0 H 10/22/18 10/23/18 10/23/18 16:12 04:56 04:56 WBC RDW 15.3 H Plt Count 109 L [place] % (Auto) 10.4 H [place] # 0.9 H APTT POC ABG pH POC ABG pCO2 POC ABG pO2 147 H Potassium 3.5 L Chloride Glucose POC Glucose Calcium 8.0 L AST NT-Pro-B Natriuret Pep Urine WBC (Auto) 10/23/18 10/24/18 10/24/18 05:43 04:58 11:23 WBC RDW Plt Count [place] % (Auto) [place] # APTT POC ABG pH POC ABG pCO2 POC ABG pO2 116 H Potassium Chloride Glucose POC Glucose 118 H 124 H Calcium AST NT-Pro-B Natriuret Pep Urine WBC (Auto)
[2018-10-24] MEDS ORDERED: TOPROL XL PO SCH (14:00)
[2018-10-24] MEDS: ALDACTONE PO SCH (15:29)
--- NOTE | 2018-10-24 16:45 | Progress Note ---
Assessment and Plan Assessment and plan: Acute resp failure. Now extubated. was initialy Intubated in ED because of resp distress Pulmonology following SIRS Blood cultures drawn Patient was evaluated by ID Physician and discontinued Cefepime, Vancomycin, Azithromycin ID Physician Axcute pulm edema Continue Lasix UTI Acute on chronic systolic CHF lasix iv bid EF 25-30% on Echo last month Cardiology following Poss COPD exacerbation son at bedside denies history of COPD Diabetes mellitus type 2. Fingerstick glucose qac and hs Full code History Interval history: Patient admitted with acute resp failure,was intubated admitted to ICU initially. Extubated yesterday transfered to Telemetry Less shortness of breath Hospitalist Physical - Physical exam Narrative exam: GEN: Not i acute distress Intubated, lying in bed,obese HEENT: Normocephalic, atraumatic, Neck: supple, No JVD Lungs: Bilateral basal crackles, Heart:S1 and S2 regular, no murmurs, rubs or gallop, Abd:soft, non tender, non distended, normal bowel sounds Ext: Bilateral pedal edema, no clubbing or cyanosis Neuro: AAO x 3, no focal signs, moves all ext - Constitutional Vitals: Temp Pulse Resp BP Pulse Ox 98.3 F 91 H 20 119/73 95 10/24/18 16:24 10/24/18 16:24 10/24/18 16:24 10/24/18 16:24 10/24/18 16:24 General appearance: Present: other (intubated) Results - Labs CBC & Chem 7: 10/23/18 04:56 10/23/18 04:56 Labs: Laboratory Last Values WBC 8.7 K/mm3 (4.5-11.0) 10/23/18 04:56 RBC 3.97 M/mm3 (3.65-5.03) 10/23/18 04:56 Hgb 11.9 gm/dl (10.1-14.3) 10/23/18 04:56 Hct 36.5 % (30.3-42.9) 10/23/18 04:56 MCV 92 fl (79-97) 10/23/18 04:56 MCH 30 pg (28-32) 10/23/18 04:56 MCHC 33 % (30-34) 10/23/18 04:56 RDW 15.3 % (13.2-15.2) H 10/23/18 04:56 Plt Count 109 K/mm3 (140-440) L 10/23/18 04:56 Lymph % (Auto) 27.1 % (13.4-35.0) 10/23/18 04:56 [place] % (Auto) 10.4 % (0.0-7.3) H 10/23/18 04:56 Eos % (Auto) 0.2 % (0.0-4.3) 10/23/18 04:56 Baso % (Auto) 0.9 % (0.0-1.8) 10/23/18 04:56 Lymph # 2.4 K/mm3 (1.2-5.4) 10/23/18 04:56 [place] # 0.9 K/mm3 (0.0-0.8) H 10/23/18 04:56 Eos # 0.0 K/mm3 (0.0-0.4) 10/23/18 04:56 Baso # 0.1 K/mm3 (0.0-0.1) 10/23/18 04:56 Seg Neutrophils % 61.4 % (40.0-70.0) 10/23/18 04:56 Seg Neutrophils # 5.4 K/mm3 (1.8-7.7) 10/23/18 04:56 APTT 23.0 Sec. (24.2-36.6) L 10/22/18 10:05 POC ABG pH 7.390 (7.35-7.45) 10/23/18 05:43 POC ABG pCO2 44.0 (35-45) 10/23/18 05:43 POC ABG pO2 116 (80-105) H 10/23/18 05:43 POC ABG HCO3 26.6 10/23/18 05:43 POC ABG Total CO2 28 10/23/18 05:43 POC ABG O2 Sat 98 10/23/18 05:43 POC ABG Base Excess 2 10/23/18 05:43 FiO2 45 % 10/23/18 05:43 Sodium 143 mmol/L (137-145) 10/23/18 04:56 Potassium 3.5 mmol/L (3.6-5.0) L 10/23/18 04:56 Chloride 107.0 mmol/L (98-107) 10/23/18 04:56 Carbon Dioxide 23 mmol/L (22-30) 10/23/18 04:56 Anion Gap 17 mmol/L 10/23/18 04:56 BUN 12 mg/dL (7-17) 10/23/18 04:56 Creatinine 0.7 mg/dL (0.7-1.2) 10/23/18 04:56 Estimated GFR > 60 ml/min 10/23/18 04:56 BUN/Creatinine Ratio 17 % 10/23/18 04:56 Glucose 96 mg/dL (65-100) 10/23/18 04:56 POC Glucose 124 (70-105) H 10/24/18 11:23 Lactic Acid 1.30 mmol/L (0.7-2.0) 10/22/18 10:05 Calcium 8.0 mg/dL (8.4-10.2) L 10/23/18 04:56 Total Bilirubin 0.30 mg/dL (0.1-1.2) 10/22/18 07:32 AST 43 units/L (5-40) H 10/22/18 07:32 ALT 38 units/L (7-56) 10/22/18 07:32 Alkaline Phosphatase 113 units/L (35-129) 10/22/18 07:32 Troponin T < 0.010 ng/mL (0.00-0.029) 10/22/18 07:32 NT-Pro-B Natriuret Pep 2049 pg/mL (0-900) H 10/22/18 07:32 Total Protein 6.7 g/dL (6.3-8.2) 10/22/18 07:32 Albumin 4.1 g/dL (3.9-5) 10/22/18 07:32 Albumin/Globulin Ratio 1.6 % 10/22/18 07:32 Urine Color Yellow (Yellow) 10/22/18 10:07 Urine Turbidity Cloudy (Clear) 10/22/18 10:07 Urine pH 5.0 (5.0-7.0) 10/22/18 10:07 Ur Specific [place] 1.019 (1.003-1.030) 10/22/18 10:07 Urine Protein 100 mg/dl mg/dL (Negative) 10/22/18 10:07 Urine Glucose (UA) 150 mg/dL (Negative) 10/22/18 10:07 Urine Ketones Neg mg/dL (Negative) 10/22/18 10:07 Urine Blood Lg (Negative) 10/22/18 10:07 Urine Nitrite Neg (Negative) 10/22/18 10:07 Urine Bilirubin Neg (Negative) 10/22/18 10:07 Urine Urobilinogen < 2.0 mg/dL (<2.0) 10/22/18 10:07 Ur Leukocyte Esterase Neg (Negative) 10/22/18 10:07 Urine WBC (Auto) 18.0 /HPF (0.0-6.0) H 10/22/18 10:07 Urine RBC (Auto) 6.0 /HPF (0.0-6.0) 10/22/18 10:07 U Epithel Cells (Auto) 1.0 /HPF (0-13.0) 10/22/18 10:07 Urine Bacteria (Auto) 3+ /HPF (Negative) 10/22/18 10:07 Urine Mucus Few /HPF 10/22/18 10:07 Nutrition/Malnutrition Assess - Dietary Evaluation Nutrition/Malnutrition Findings: Nutrition Notes Start: 10/23/18 08:47 Freq: Status: Active Protocol: Document 10/23/18 08:47 CP (Rec: 10/23/18 09:58 CP [id number]) Co-Sign 10/23/18 08:47 LP Nutrition Notes Need for Assessment generated from: MD Order Initial or Follow up Assessment Current Diagnosis Diabetes Sepsis Respiratory Failure Hyperlipidemia Other Pertinent Diagnosis Pulmonary edema Current Diet NPO Labs/Tests K: 3.5 Pertinent Medications Lasix Height 5 ft 8 in Weight 99.2 kg [place] Body Weight (kg) 63.63 BMI 33.2 Weight Status Obese Subjective/Other Information MD screen for NTR intake. Per MD, pt will be advanced to cardiac diet if pt tolerates bedside swallow and will be extubated this afternoon. Percent of energy/protein needs met: 0%/0% Burn Absent Trauma Absent #1 Nutrition Diagnosis Inadequate oral intake Etiology Resp Failure As Evidenced by Signs and Symptoms NPO status and being on the vent Is patient on ventilator? Yes Is Patient Ambulatory and/or Out of Bed No REE-([place]-confined to bed) 1943.076 Kcal/Kg value to use for calculation 14 Approximate Energy Requirements Using 1389 kcal/Kg Calculation Used for Recommendations Kcal/kg Additional Notes Pro: 126 g (2g/kg IBW) Fluid: 1mL/kcal Nutrition Intervention Goal #1 Diet advancement Anticipated Discharge Needs: Unable to determine at this time Follow-Up By: 10/25/18 Additional Comments F/U: Diet advancement
[2018-10-25] MEDS: DUONEB *Not for PRN Use IH SCH ×4 (01:09→21:39)
[2018-10-25] MEDS: LASIX IV SCH ×2 (06:19→18:30)
[2018-10-25 06:36] LABS: Hematocrit 40.2 % (30.3-42.9); Hemoglobin 13.3 gm/dl (10.1-14.3); Mean Corpuscular HGB Conc 33 % (30-34); Mean Corpuscular Volume 90 fl (79-97); Platelet Count 146 K/mm3 (140-440); Red Blood Count 4.46 M/mm3 (3.65-5.03); Red Cell Distribution Width 14.6 % (13.2-15.2)
[2018-10-25 06:58] LABS: BUN/Creatinine Ratio 13; Blood Urea Nitrogen 8 mg/dL (7-17); Calcium 9.2 mg/dL (8.4-10.2); Hemolysis Index 23
[2018-10-25] MEDS ORDERED: VITAMIN D3 PO SCH (10:00)
[2018-10-25] MEDS ORDERED: ALDACTONE PO SCH (10:00)
[2018-10-25] MEDS ORDERED: NON-FORMULARY (Atorvastatin Calcium [Lipitor] 80 MG) PO SCH (10:00)
--- NOTE | 2018-10-25 10:05 | Progress Note ---
Assessment and Plan Currently stable cardiac status. Cont present cardiac regimen. Pt awaiting LifeVest placement. 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 Pending LifeVest placement, pt may discharge from cardiology standpoint to follow up with [facility]. At discharge, recommend conversion of IV lasix to PO 40mg daily. Cont all other present cardiac management. Pt already has f/u appt with [facility] cardiology. The patient has been seen in conjunction with Dr. Rodas who agrees with the assessment and plan of care. - Patient Problems (1) Acute respiratory failure Current Visit: Yes Status: Acute (2) Acute HFrEF (heart failure with reduced ejection fraction) Current Visit: Yes Status: Acute (3) Nonischemic cardiomyopathy Current Visit: Yes Status: Chronic (4) Severe mitral regurgitation Current Visit: Yes Status: Chronic (5) HTN (hypertension) Current Visit: Yes Status: Chronic (6) Diabetes Current Visit: Yes Status: Chronic (7) Left bundle branch block Current Visit: Yes Status: Chronic (8) Pulmonary hypertension Current Visit: Yes Status: Chronic (9) UTI (urinary tract infection) Current Visit: Yes Status: Acute (10) Right atrial mass Current Visit: Yes Status: Chronic Subjective Date of service: 10/25/18 Principal diagnosis: HF Interval history: pt resting comfortably in bed, no current complaints. states she is feeling better. Objective Last Vital Signs Temp 98.6 F 10/25/18 08:40 Pulse 113 H 10/25/18 08:40 Resp 20 10/25/18 08:40 BP 112/75 10/25/18 08:40 Pulse Ox 95 10/25/18 08:40 - Physical Examination General: No Apparent Distress HEENT: Positive: PERRL Cardiac: Positive: Reg Rate and Rhythm, S1/S2 Lungs: Positive: Decreased Breath Sounds Neuro: Positive: Grossly Intact Musculoskeletal: No Pain Extremities: Absent: edema - Labs and Meds CBC 10/25/18 Range/Units 06:20 WBC 6.7 (4.5-11.0) K/mm3 RBC 4.46 (3.65-5.03) M/mm3 Hgb 13.3 (10.1-14.3) gm/dl Hct 40.2 (30.3-42.9) % Plt Count 146 (140-440) K/mm3 Comprehensive Metabolic Panel 10/25/18 Range/Units 06:20 Sodium 146 H (137-145) mmol/L Potassium 3.5 L (3.6-5.0) mmol/L Chloride 104.6 (98-107) mmol/L Carbon Dioxide 28 (22-30) mmol/L BUN 8 (7-17) mg/dL Creatinine 0.6 L (0.7-1.2) mg/dL Glucose 124 H (65-100) mg/dL Calcium 9.2 (8.4-10.2) mg/dL - Imaging and Cardiology EKG: report reviewed, image reviewed Echo: report reviewed (09/2018: EF 20-25%, mild LVH, moderately large echodensity on RA which appears attached to anterior wall of RA, mild AR, modera tely severe MR, no MS, mod sized left pleural effusion. TTE done 08/30/2018 showed EF 15-20%, LV mod dilated, LA mild to mod dilated, RV slightly dilated, oval calcified mass adherent to medial aspect of the RA wall, mod to severe MR, pulm HTN with RVSP 56mmHg. ) Cardiac cath: report reviewed (09/02/2018 showed normal coronaries, EF 25-30%. ) - EKG Sinus rhythms and dysrhythmias: sinus rhythm AV and intraventricular conduction: left bundle branch block
[2018-10-25] MEDS: ALDACTONE PO SCH (10:39)
[2018-10-25] MEDS: BABY ASPIRIN PO SCH (10:39)
[2018-10-25] MEDS: VITAMIN D3 PO SCH (10:39)
[2018-10-25] MEDS: ZESTRIL PO SCH (10:40)
[2018-10-25] MEDS: PEPCID IV SCH (10:41)
--- NOTE | 2018-10-25 13:21 | Progress Note ---
Assessment and Plan 58 y/o female with acute respiratory failure, hypoxic secondary to pulmonary edema from leaky mitral valve. 1. Continue daily net negative state 2. CMP per cards 3. Will need walk test, oxygen assessment prior to discharge. 4. Will sign off, call if questions. Subjective Date of service: 10/25/18 Principal diagnosis: HF Interval history: Still on nasal cannula but stable. currently on BID lasix and now spironolactone. Na slightly elevated this morning. Objective Vital Signs - 12hr 10/25/18 10/25/18 10/25/18 01:22 03:36 08:04 Temperature 98.2 F Pulse Rate 94 H Pulse Rate [ 95 H 102 H Anterior Bilateral Throughout] Respiratory 18 Rate Respiratory 18 18 Rate [Anterior Bilateral Throughout] Blood Pressure 124/73 O2 Sat by Pulse 97 98 Oximetry 10/25/18 10/25/18 10/25/18 08:14 08:40 10:39 Temperature 98.6 F Pulse Rate 113 H 113 H Pulse Rate [ 100 H Anterior Bilateral Throughout] Respiratory 20 Rate Respiratory 18 Rate [Anterior Bilateral Throughout] Blood Pressure 112/75 112/75 O2 Sat by Pulse 95 Oximetry 10/25/18 10:40 Temperature Pulse Rate 113 H Pulse Rate [ Anterior Bilateral Throughout] Respiratory Rate Respiratory Rate [Anterior Bilateral Throughout] Blood Pressure 112/75 O2 Sat by Pulse Oximetry Constitutional: no acute distress (sedated) Eyes: non-icteric ENT: other (orally intubated) Neck: supple, JVD Ascultation: Bilateral: rales Cardiovascular: regular rate and rhythm Gastrointestinal: normoactive bowel sounds CBC and BMP: 10/25/18 06:20 10/25/18 06:20 ABG, PT/INR, D-dimer: ABG POC ABG pH 7.390 (7.35-7.45) 10/23/18 05:43 POC ABG pCO2 44.0 (35-45) 10/23/18 05:43 POC ABG pO2 116 (80-105) H 10/23/18 05:43 POC ABG HCO3 26.6 10/23/18 05:43 POC ABG Total CO2 28 10/23/18 05:43 POC ABG O2 Sat 98 10/23/18 05:43 Abnormal lab findings: Abnormal Labs 10/22/18 10/22/18 10/22/18 07:03 07:32 07:32 WBC 11.6 H RDW Plt Count [place] % (Auto) [place] # APTT POC ABG pH POC ABG pCO2 POC ABG pO2 Sodium Potassium Chloride Creatinine Glucose 318 H 306 H POC Glucose Calcium AST 43 H NT-Pro-B Natriuret Pep Urine WBC (Auto) 10/22/18 10/22/18 10/22/18 07:32 08:35 10:05 WBC RDW Plt Count [place] % (Auto) [place] # APTT 23.0 L POC ABG pH 7.091 L POC ABG pCO2 86.0 H POC ABG pO2 Sodium Potassium Chloride Creatinine Glucose POC Glucose Calcium AST NT-Pro-B Natriuret Pep 2049 H Urine WBC (Auto) 10/22/18 10/22/18 10/22/18 10:05 10:07 10:17 WBC RDW Plt Count [place] % (Auto) [place] # APTT POC ABG pH 7.175 L POC ABG pCO2 68.3 H POC ABG pO2 112 H Sodium Potassium Chloride 108.1 H Creatinine Glucose 277 H POC Glucose Calcium 7.7 L D AST NT-Pro-B Natriuret Pep Urine WBC (Auto) 18.0 H 10/22/18 10/23/18 10/23/18 16:12 04:56 04:56 WBC RDW 15.3 H Plt Count 109 L [place] % (Auto) 10.4 H [place] # 0.9 H APTT POC ABG pH POC ABG pCO2 POC ABG pO2 147 H Sodium Potassium 3.5 L Chloride Creatinine Glucose POC Glucose Calcium 8.0 L AST NT-Pro-B Natriuret Pep Urine WBC (Auto) 10/23/18 10/24/18 10/24/18 05:43 04:58 11:23 WBC RDW Plt Count [place] % (Auto) [place] # APTT POC ABG pH POC ABG pCO2 POC ABG pO2 116 H Sodium Potassium Chloride Creatinine Glucose POC Glucose 118 H 124 H Calcium AST NT-Pro-B Natriuret Pep Urine WBC (Auto) 10/24/18 10/24/18 10/25/18 16:25 20:55 06:20 WBC RDW Plt Count [place] % (Auto) [place] # APTT POC ABG pH POC ABG pCO2 POC ABG pO2 Sodium 146 H Potassium 3.5 L Chloride Creatinine 0.6 L Glucose 124 H POC Glucose 109 H 107 H Calcium AST NT-Pro-B Natriuret Pep Urine WBC (Auto) 10/25/18 10/25/18 08:07 11:48 WBC RDW Plt Count [place] % (Auto) [place] # APTT POC ABG pH POC ABG pCO2 POC ABG pO2 Sodium Potassium Chloride Creatinine Glucose POC Glucose 115 H 109 H Calcium AST NT-Pro-B Natriuret Pep Urine WBC (Auto)
[2018-10-25] MEDS ORDERED: TOPROL XL PO SCH (14:00)
--- NOTE | 2018-10-25 15:02 | Event Note ---
Date: 10/25/18 [facility] declined [place] for [facility]Vest. Pt has medicaid application pending and may be able to get approval for LifeVest from medicaid. If she is not able to get coverage via medicaid, she may still discharge from cardiology standpoint without LifeVest with plans to readdress with [facility] cardiology. Percy ARELLANO NP / DR. SCHMITZ
--- NOTE | 2018-10-25 16:20 | Progress Note ---
Assessment and Plan Assessment and plan: Acute resp failure. Now extubated. was initialy Intubated in ED because of resp distress Pulmonology following SIRS Blood cultures drawn Patient was evaluated by ID Physician and discontinued Cefepime, Vancomycin, Azithromycin ID Physician Axcute pulm edema Continue Lasix UTI Cardiomyopathy. To get life vest then discharge home Acute on chronic systolic CHF lasix iv bid EF 25-30% Cardiology following Poss COPD exacerbation son at bedside denies history of COPD Diabetes mellitus type 2. Fingerstick glucose qac and hs Full code History Interval history: Patient admitted with acute resp failure,was intubated admitted to ICU initially. Extubated transfered to Telemetry Less shortness of breath Hospitalist Physical - Physical exam Narrative exam: GEN: Not i acute distress Intubated, lying in bed,obese HEENT: Normocephalic, atraumatic, Neck: supple, No JVD Lungs: Bilateral basal crackles, Heart:S1 and S2 regular, no murmurs, rubs or gallop, Abd:soft, non tender, non distended, normal bowel sounds Ext: Bilateral pedal edema, no clubbing or cyanosis Neuro: AAO x 3, no focal signs, moves all ext - Constitutional Vitals: Temp Pulse Resp BP Pulse Ox 97.9 F 106 H 20 130/86 97 10/25/18 15:15 10/25/18 15:15 10/25/18 15:15 10/25/18 15:15 10/25/18 15:15 General appearance: Present: other (intubated) Results - Labs CBC & Chem 7: 10/25/18 06:20 10/25/18 06:20 Labs: Laboratory Last Values WBC 6.7 K/mm3 (4.5-11.0) 10/25/18 06:20 RBC 4.46 M/mm3 (3.65-5.03) 10/25/18 06:20 Hgb 13.3 gm/dl (10.1-14.3) 10/25/18 06:20 Hct 40.2 % (30.3-42.9) 10/25/18 06:20 MCV 90 fl (79-97) 10/25/18 06:20 MCH 30 pg (28-32) 10/25/18 06:20 MCHC 33 % (30-34) 10/25/18 06:20 RDW 14.6 % (13.2-15.2) 10/25/18 06:20 Plt Count 146 K/mm3 (140-440) 10/25/18 06:20 Lymph % (Auto) 27.1 % (13.4-35.0) 10/23/18 04:56 [place] % (Auto) 10.4 % (0.0-7.3) H 10/23/18 04:56 Eos % (Auto) 0.2 % (0.0-4.3) 10/23/18 04:56 Baso % (Auto) 0.9 % (0.0-1.8) 10/23/18 04:56 Lymph # 2.4 K/mm3 (1.2-5.4) 10/23/18 04:56 [place] # 0.9 K/mm3 (0.0-0.8) H 10/23/18 04:56 Eos # 0.0 K/mm3 (0.0-0.4) 10/23/18 04:56 Baso # 0.1 K/mm3 (0.0-0.1) 10/23/18 04:56 Seg Neutrophils % 61.4 % (40.0-70.0) 10/23/18 04:56 Seg Neutrophils # 5.4 K/mm3 (1.8-7.7) 10/23/18 04:56 APTT 23.0 Sec. (24.2-36.6) L 10/22/18 10:05 POC ABG pH 7.390 (7.35-7.45) 10/23/18 05:43 POC ABG pCO2 44.0 (35-45) 10/23/18 05:43 POC ABG pO2 116 (80-105) H 10/23/18 05:43 POC ABG HCO3 26.6 10/23/18 05:43 POC ABG Total CO2 28 10/23/18 05:43 POC ABG O2 Sat 98 10/23/18 05:43 POC ABG Base Excess 2 10/23/18 05:43 FiO2 45 % 10/23/18 05:43 Sodium 146 mmol/L (137-145) H 10/25/18 06:20 Potassium 3.5 mmol/L (3.6-5.0) L 10/25/18 06:20 Chloride 104.6 mmol/L (98-107) 10/25/18 06:20 Carbon Dioxide 28 mmol/L (22-30) 10/25/18 06:20 Anion Gap 17 mmol/L 10/25/18 06:20 BUN 8 mg/dL (7-17) 10/25/18 06:20 Creatinine 0.6 mg/dL (0.7-1.2) L 10/25/18 06:20 Estimated GFR > 60 ml/min 10/25/18 06:20 BUN/Creatinine Ratio 13 % 10/25/18 06:20 Glucose 124 mg/dL (65-100) H 10/25/18 06:20 POC Glucose 109 (70-105) H 10/25/18 11:48 Lactic Acid 1.30 mmol/L (0.7-2.0) 10/22/18 10:05 Calcium 9.2 mg/dL (8.4-10.2) 10/25/18 06:20 Total Bilirubin 0.30 mg/dL (0.1-1.2) 10/22/18 07:32 AST 43 units/L (5-40) H 10/22/18 07:32 ALT 38 units/L (7-56) 10/22/18 07:32 Alkaline Phosphatase 113 units/L (35-129) 10/22/18 07:32 Troponin T < 0.010 ng/mL (0.00-0.029) 10/22/18 07:32 NT-Pro-B Natriuret Pep 2049 pg/mL (0-900) H 10/22/18 07:32 Total Protein 6.7 g/dL (6.3-8.2) 10/22/18 07:32 Albumin 4.1 g/dL (3.9-5) 10/22/18 07:32 Albumin/Globulin Ratio 1.6 % 10/22/18 07:32 Urine Color Yellow (Yellow) 10/22/18 10:07 Urine Turbidity Cloudy (Clear) 10/22/18 10:07 Urine pH 5.0 (5.0-7.0) 10/22/18 10:07 Ur Specific [place] 1.019 (1.003-1.030) 10/22/18 10:07 Urine Protein 100 mg/dl mg/dL (Negative) 10/22/18 10:07 Urine Glucose (UA) 150 mg/dL (Negative) 10/22/18 10:07 Urine Ketones Neg mg/dL (Negative) 10/22/18 10:07 Urine Blood Lg (Negative) 10/22/18 10:07 Urine Nitrite Neg (Negative) 10/22/18 10:07 Urine Bilirubin Neg (Negative) 10/22/18 10:07 Urine Urobilinogen < 2.0 mg/dL (<2.0) 10/22/18 10:07 Ur Leukocyte Esterase Neg (Negative) 10/22/18 10:07 Urine WBC (Auto) 18.0 /HPF (0.0-6.0) H 10/22/18 10:07 Urine RBC (Auto) 6.0 /HPF (0.0-6.0) 10/22/18 10:07 U Epithel Cells (Auto) 1.0 /HPF (0-13.0) 10/22/18 10:07 Urine Bacteria (Auto) 3+ /HPF (Negative) 10/22/18 10:07 Urine Mucus Few /HPF 10/22/18 10:07 Miscellaneous Test Flexitest 1 H 10/23/18 07:05 Nutrition/Malnutrition Assess - Dietary Evaluation Nutrition/Malnutrition Findings: Nutrition Notes Start: 10/23/18 08:47 Freq: Status: Active Protocol: Document 10/23/18 08:47 CP (Rec: 10/23/18 09:58 CP [id number]) Co-Sign 10/23/18 08:47 LP Nutrition Notes Need for Assessment generated from: MD Order Initial or Follow up Assessment Current Diagnosis Diabetes Sepsis Respiratory Failure Hyperlipidemia Other Pertinent Diagnosis Pulmonary edema Current Diet NPO Labs/Tests K: 3.5 Pertinent Medications Lasix Height 5 ft 8 in Weight 99.2 kg [place] Body Weight (kg) 63.63 BMI 33.2 Weight Status Obese Subjective/Other Information MD screen for NTR intake. Per MD, pt will be advanced to cardiac diet if pt tolerates bedside swallow and will be extubated this afternoon. Percent of energy/protein needs met: 0%/0% Burn Absent Trauma Absent #1 Nutrition Diagnosis Inadequate oral intake Etiology Resp Failure As Evidenced by Signs and Symptoms NPO status and being on the vent Is patient on ventilator? Yes Is Patient Ambulatory and/or Out of Bed No REE-(Mckean-St. Jeor-confined to bed) 1943.076 Kcal/Kg value to use for calculation 14 Approximate Energy Requirements Using 1389 kcal/Kg Calculation Used for Recommendations Kcal/kg Additional Notes Pro: 126 g (2g/kg IBW) Fluid: 1mL/kcal Nutrition Intervention Goal #1 Diet advancement Anticipated Discharge Needs: Unable to determine at this time Follow-Up By: 10/25/18 Additional Comments F/U: Diet advancement
[2018-10-25] MEDS: EFFEXOR PO SCH (18:30)
[2018-10-25] MEDS: TOPROL XL PO SCH (18:30)
[2018-10-25] MEDS ORDERED: AMBIEN PO PRN (21:01)
[2018-10-25] MEDS: SODIUM CHLORIDE FLUSH SYRINGE 10 ML IV SCH ×2 (22:16→22:18)
[2018-10-25] MEDS: COLACE PO SCH (22:17)
[2018-10-26] MEDS: DUONEB *Not for PRN Use IH SCH ×4 (02:19→13:30)
[2018-10-26] MEDS: LASIX IV SCH (05:54)
[2018-10-26] MEDS: VITAMIN D3 PO SCH (10:14)
[2018-10-26] MEDS: BABY ASPIRIN PO SCH (10:14)
[2018-10-26] MEDS: COLACE PO SCH (10:14)
[2018-10-26] MEDS: ALDACTONE PO SCH (10:14)
[2018-10-26] MEDS: EFFEXOR PO SCH (10:15)
[2018-10-26] MEDS: ZESTRIL PO SCH (10:15)
[2018-10-26] MEDS: SODIUM CHLORIDE FLUSH SYRINGE 10 ML IV SCH (10:18)
[2018-10-26] MEDS: TOPROL XL PO SCH (10:18)
[2018-10-26 12:31] VITALS: BP 111/58
--- NOTE | 2018-10-26 13:29 | Progress Note ---
Assessment and Plan Assessment and plan: Acute resp failure. Now extubated. was initialy Intubated in ED because of resp distress Pulmonology following SIRS Blood cultures drawn Patient was evaluated by ID Physician and discontinued Cefepime, Vancomycin, Azithromycin ID Physician Axcute pulm edema Continue Lasix UTI Cardiomyopathy. To get life vest then discharge home Acute on chronic systolic CHF lasix iv bid EF 25-30% Cardiology following Diabetes mellitus type 2. Fingerstick glucose qac and hs Full code Awaiting life vest History Interval history: Patient admitted with acute resp failure,was intubated admitted to ICU initially. Extubated transfered to Telemetry Less shortness of breath Life vest not arranged yet Hospitalist Physical - Physical exam Narrative exam: GEN: Not in acute distress, obese HEENT: Normocephalic, atraumatic, Neck: supple, No JVD Lungs: Clear to auscultation, no crackles, Heart:S1 and S2 regular, no murmurs, rubs or gallop, Abd:soft, non tender, non distended, normal bowel sounds Ext: Bilateral pedal edema, no clubbing or cyanosis Neuro: AAO x 3, no focal signs, moves all ext - Constitutional Vitals: Temp Pulse Resp BP Pulse Ox 98.2 F 90 16 111/58 100 10/26/18 08:13 10/26/18 12:28 10/26/18 12:24 10/26/18 12:28 10/26/18 12:28 General appearance: Present: other (intubated) Results - Labs CBC & Chem 7: 10/25/18 06:20 10/25/18 06:20 Labs: Laboratory Last Values WBC 6.7 K/mm3 (4.5-11.0) 10/25/18 06:20 RBC 4.46 M/mm3 (3.65-5.03) 10/25/18 06:20 Hgb 13.3 gm/dl (10.1-14.3) 10/25/18 06:20 Hct 40.2 % (30.3-42.9) 10/25/18 06:20 MCV 90 fl (79-97) 10/25/18 06:20 MCH 30 pg (28-32) 10/25/18 06:20 MCHC 33 % (30-34) 10/25/18 06:20 RDW 14.6 % (13.2-15.2) 10/25/18 06:20 Plt Count 146 K/mm3 (140-440) 10/25/18 06:20 Lymph % (Auto) 27.1 % (13.4-35.0) 10/23/18 04:56 [place] % (Auto) 10.4 % (0.0-7.3) H 10/23/18 04:56 Eos % (Auto) 0.2 % (0.0-4.3) 10/23/18 04:56 Baso % (Auto) 0.9 % (0.0-1.8) 10/23/18 04:56 Lymph # 2.4 K/mm3 (1.2-5.4) 10/23/18 04:56 [place] # 0.9 K/mm3 (0.0-0.8) H 10/23/18 04:56 Eos # 0.0 K/mm3 (0.0-0.4) 10/23/18 04:56 Baso # 0.1 K/mm3 (0.0-0.1) 10/23/18 04:56 Seg Neutrophils % 61.4 % (40.0-70.0) 10/23/18 04:56 Seg Neutrophils # 5.4 K/mm3 (1.8-7.7) 10/23/18 04:56 APTT 23.0 Sec. (24.2-36.6) L 10/22/18 10:05 POC ABG pH 7.390 (7.35-7.45) 10/23/18 05:43 POC ABG pCO2 44.0 (35-45) 10/23/18 05:43 POC ABG pO2 116 (80-105) H 10/23/18 05:43 POC ABG HCO3 26.6 10/23/18 05:43 POC ABG Total CO2 28 10/23/18 05:43 POC ABG O2 Sat 98 10/23/18 05:43 POC ABG Base Excess 2 10/23/18 05:43 FiO2 45 % 10/23/18 05:43 Sodium 146 mmol/L (137-145) H 10/25/18 06:20 Potassium 3.5 mmol/L (3.6-5.0) L 10/25/18 06:20 Chloride 104.6 mmol/L (98-107) 10/25/18 06:20 Carbon Dioxide 28 mmol/L (22-30) 10/25/18 06:20 Anion Gap 17 mmol/L 10/25/18 06:20 BUN 8 mg/dL (7-17) 10/25/18 06:20 Creatinine 0.6 mg/dL (0.7-1.2) L 10/25/18 06:20 Estimated GFR > 60 ml/min 10/25/18 06:20 BUN/Creatinine Ratio 13 % 10/25/18 06:20 Glucose 124 mg/dL (65-100) H 10/25/18 06:20 POC Glucose 124 (70-105) H 10/26/18 12:32 Lactic Acid 1.30 mmol/L (0.7-2.0) 10/22/18 10:05 Calcium 9.2 mg/dL (8.4-10.2) 10/25/18 06:20 Total Bilirubin 0.30 mg/dL (0.1-1.2) 10/22/18 07:32 AST 43 units/L (5-40) H 10/22/18 07:32 ALT 38 units/L (7-56) 10/22/18 07:32 Alkaline Phosphatase 113 units/L (35-129) 10/22/18 07:32 Troponin T < 0.010 ng/mL (0.00-0.029) 10/22/18 07:32 NT-Pro-B Natriuret Pep 2049 pg/mL (0-900) H 10/22/18 07:32 Total Protein 6.7 g/dL (6.3-8.2) 10/22/18 07:32 Albumin 4.1 g/dL (3.9-5) 10/22/18 07:32 Albumin/Globulin Ratio 1.6 % 10/22/18 07:32 Urine Color Yellow (Yellow) 10/22/18 10:07 Urine Turbidity Cloudy (Clear) 10/22/18 10:07 Urine pH 5.0 (5.0-7.0) 10/22/18 10:07 Ur Specific [place] 1.019 (1.003-1.030) 10/22/18 10:07 Urine Protein 100 mg/dl mg/dL (Negative) 10/22/18 10:07 Urine Glucose (UA) 150 mg/dL (Negative) 10/22/18 10:07 Urine Ketones Neg mg/dL (Negative) 10/22/18 10:07 Urine Blood Lg (Negative) 10/22/18 10:07 Urine Nitrite Neg (Negative) 10/22/18 10:07 Urine Bilirubin Neg (Negative) 10/22/18 10:07 Urine Urobilinogen < 2.0 mg/dL (<2.0) 10/22/18 10:07 Ur Leukocyte Esterase Neg (Negative) 10/22/18 10:07 Urine WBC (Auto) 18.0 /HPF (0.0-6.0) H 10/22/18 10:07 Urine RBC (Auto) 6.0 /HPF (0.0-6.0) 10/22/18 10:07 U Epithel Cells (Auto) 1.0 /HPF (0-13.0) 10/22/18 10:07 Urine Bacteria (Auto) 3+ /HPF (Negative) 10/22/18 10:07 Urine Mucus Few /HPF 10/22/18 10:07 Miscellaneous Test Flexitest 1 H 10/23/18 07:05 Nutrition/Malnutrition Assess - Dietary Evaluation Nutrition/Malnutrition Findings: Nutrition Notes Start: 10/23/18 08:47 Freq: Status: Active Protocol: Document 10/25/18 16:25 RM (Rec: 10/25/18 16:30 RM [id number]) Nutrition Notes Initial or Follow up Reassessment Current Diagnosis COPD Diabetes Respiratory Failure Hyperlipidemia Other Pertinent Diagnosis Pulmonary edema Current Diet Cardiac Labs/Tests Reviewed Pertinent Medications Lasix Height 5 ft 8 in Weight 94.1 kg Usual Body Weight 94.55 kg [place] Body Weight (kg) 63.63 BMI 31.5 Weight change and time frame Wt loss likely d/t improvement of pulmonary edema Subjective/Other Information Pt stated that her appetite was poor but has been improving. 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 Stated that she felt that she did not need it d/t her appetite improving. Stated UBW was 207-210 lbs last week. No physical signs of malnutrition. Percent of energy/protein needs met: 100%/58% Burn Absent Trauma Absent #1 Nutrition Diagnosis Inadequate oral intake As Evidenced by Signs and Symptoms pt statement that she ate 2/3 of her lunch Diagnosis Progress(for reassessment Improved documentation) Is patient on ventilator? Yes Is Patient Ambulatory and/or Out of Bed No REE-([place]-St. or-confined to bed) 1881.936 Kcal/Kg value to use for calculation 14 Approximate Energy Requirements Using 1317 kcal/Kg Calculation Used for Recommendations Kcal/kg Additional Notes Pro: 95-119g (1.2-1.5g/kg 79kg AdjBW) Fluid: 1mL/kcal Nutrition Intervention Change Diet Order: Add consistent CHO Goal #1 Meet at least 75% of calorie and protein needs via PO intakes Anticipated Discharge Needs: Cardiac/Consistent CHO Follow-Up By: 10/30/18 Additional Comments Follow for meeting protien needs
--- NOTE | 2018-10-26 14:18 | Discharge Summary ---
Providers - Providers Date of Admission: 10/22/18 10:35 Date of discharge: 10/26/18 Attending physician: BERNA BURGOS 10/22/18 10:05 Consult to Dietitian/Nutrition [CONS] Routine Physician Instructions: Reason For Exam: Reason for Consult: Evaluate nutritional intake 10/22/18 12:05 Consult to Physician [CONS] Routine Comment: Consulting Provider: MARIO ALMARAZ Physician Instructions: Reason For Exam: Bilateral infiltrates, poss pneumonia 10/22/18 12:17 Consult to Physician [CONS] Routine Comment: Consulting Provider: JET SCHMITZ Physician Instructions: Reason For Exam: CHF exacerbation Primary care physician: CHARLI SELF Hospitalization Condition: Fair Hospital course: Patient is 58 yo with hypertension, hyperlipidemia, diabetes, CHF presented with shortness of breath. History was obtained from son at bedside since patient was intubated. As per son, patient just complained of shortness of breath few hours earlier. There was no chest pain. No fever. She was brought to ED for evaluation. Chest X ray showed bilateral infiltrates. Patient was started on BiBap, Lasix, iv Antibiotics. She did not improve and was therefore intubated placed on ventilator and admitted to ICU. She was evaluated by Children'S Literature Professor and Clinical Trial Educator. She was diagnosed with acute respiratory failure due to acute on chronic systolic CHF. Echo showed EF 20-25%. She improved, was extubated , transferred to Telemetry. ID Physician was consulted and she ruled out Sepsis and discontinued Antibiotics that had been started empirically. Patient had SIRS.Lifevest was recommended by Cardiology. Patient wished to discuss candidacy for AICD with primary cardiology at [facility]. manufacturing project manager stated lifevest was not approved by [facility]. cardiology recommended patient may discharge and follow as outpatient. She was re-evaluated 10/26/18, was asymptomatic. No chest pain, no shortness of breath, so discharged home to follow as outpatient. Total time spent on discharge, 38 mins Disposition: - TO HOME OR SELFCARE - Discharge Diagnoses (1) Acute respiratory failure Status: Acute (2) Cardiomyopathy Status: Chronic (3) Diabetes Status: Chronic (4) HTN (hypertension) Status: Chronic (5) Left bundle branch block Status: Chronic (6) Severe mitral regurgitation Status: Chronic Core Measure Documentation - Palliative Care Palliative Care/ Comfort Measures: Not Applicable - Core Measures Any of the following diagnoses?: heart failure - Heart Failure Discharge Requirements ASHISH/ARB for LVSD if EF <40%: Yes Beta kitty at discharge: Yes Exam - Constitutional Vitals: Temp Pulse Resp BP Pulse Ox 98.2 F 90 16 111/58 100 10/26/18 08:13 10/26/18 12:28 10/26/18 12:24 10/26/18 12:28 10/26/18 12:28 Plan Activity: other (No strenous activity until cleared by Cardiology) Diet: low fat, low cholesterol, low salt, diabetic Additional Instructions: 1.Follow up with PCP in 2-3 days. 2.[facility] on Sunday10/28/18 Follow up with: CHARLI SELF MD [Primary Care Provider] - 7 Days Forms: Discharge Signature Page Prescriptions: Furosemide [Lasix TAB] 40 mg PO QDAY #30 tablet
== END 2018-10-26 16:35 | disposition home or self-care (01) | DRG 871 ==
LOC: ED 06:41 → IMCU 10:35 → CC1 10:58 → 4A 10-23 23:15
PROVIDERS: ADMIT Internal Medicine; ATTEND Internal Medicine
PROC: 4A033R1 Measurement of Arterial Saturation, Peripheral, Percutaneous Approach (ICD-10-PCS; principal; 2018-10-22)
PROC: 5A1945Z Respiratory Ventilation, 24-96 Consecutive Hours (ICD-10-PCS; 2018-10-22)
PROC: 0BH17EZ Insertion of Endotracheal Airway into Trachea, Via Natural or Artificial Opening (ICD-10-PCS; 2018-10-22)
DX: A41.9 Sepsis, unspecified organism (principal); I50.23 Acute on chronic systolic (congestive) heart failure; J96.01 Acute respiratory failure with hypoxia; N39.0 Urinary tract infection, site not specified; I42.8 Other cardiomyopathies; E11.9 Type 2 diabetes mellitus without complications; I05.9 Rheumatic mitral valve disease, unspecified; I11.0 Hypertensive heart disease with heart failure; I44.7 Left bundle-branch block, unspecified; I27.20 Pulmonary hypertension, unspecified; E66.9 Obesity, unspecified; F12.90 Cannabis use, unspecified, uncomplicated; F17.200 Nicotine dependence, unspecified, uncomplicated; J44.9 Chronic obstructive pulmonary disease, unspecified; Z68.31 Body mass index [BMI] 31.0-31.9, adult; Z87.01 Personal history of pneumonia (recurrent); Z72.89 Other problems related to lifestyle; Z79.82 Long term (current) use of aspirin; Z79.899 Other long term (current) drug therapy; Z90.711 Acquired absence of uterus with remaining cervical stump
CPT/HCPCS: 36415; 36600; 71045; 74018; 80048; 80053; 81001; 82140; 82803; 82962; 83880; 84484; 85025; 85027; 85730; 87040; 87070; 87086; 87205; 93005; 93010; 93306; 94002; 94003; 94640; 94760; G0378; A9270-GY; J0456; J0692; J1940; J2704; J3010; J3370; J3480; J7030; J7040; J7050

== ENCOUNTER 2018-11-06 12:03 | Emergency (ER) | payer OTHER ==
[~2018-11-06 12:03] MED LIST: ADRENALIN ONE
--- NOTE | 2018-11-06 12:18 | Emergency Department Report ---
ED CPR HPI - General Chief Complaint: Cardiac Arrest/CPR Stated Complaint: CARDIAC Time Seen by Provider: 11/06/18 12:03 Source: EMS Mode of arrival: Stretcher Limitations: Other - History of Present Illness Initial Comments: Evaluation in [place] upon arrival. Report received from EMS. EMS states that the patient call 911 for shortness of breath. Patient was alert and oriented when EMS arrived and after loaded into the back of the embolus the patient had a seizure area patient then became nonresponsive and arrested. Patient was intubated by EMS 30. EMS states that the patient regained pulse but shortly lost her pulse again. EMS performing CPR upon arrival. \ Patient is a 58-year-old female that presents intervention for cardiac arrest. CPR in progress upon arrival/. MD Complaint: stopped breathing, collapsed during rest, seizure Place: home Bystander CPR Performed: Yes AED Applied by Bystander/Group Supervisor Yard: Yes Shock Advised: No Initial Findings in the Field: alert ROSC in the Field: No Associated Injuries: No Associated Symptoms: shortness of breath Treatments Prior to Arrival: intubation, BMV, epinephrine mgs #, atropine mgs # - Related Data Home Medications Medication Instructions Recorded Confirmed Last Taken ALBUTEROL Inhaler (OR & NICU) 2 puff IH QID PRN 10/22/18 10/22/18 Unknown [ProAir HFA Inhaler] Atorvastatin Calcium [Lipitor] 80 mg PO DAILY 10/22/18 10/22/18 Unknown Cholecalciferol Vit D3 [Vitamin D3 1,000 unit PO QDAY 10/22/18 10/22/18 Unknown 1,000 UNIT TAB] Ipratropium (Nf) [Atrovent HFA 2 puff IH Q6HR 10/22/18 10/22/18 Unknown 17MCG/PUFF] Lisinopril [Zestril TAB] 20 mg PO QDAY 10/22/18 10/22/18 Unknown Metoprolol Succinate [Toprol Xl] 100 mg PO DAILY 10/22/18 10/22/18 Unknown Potassium Chloride [K-Dur] 20 meq PO QDAY 10/22/18 10/22/18 Unknown Spironolactone 25 mg PO DAILY 10/22/18 10/22/18 Unknown Venlafaxine [Effexor] 75 mg PO DAILY 10/22/18 10/22/18 Unknown metFORMIN [Glucophage] 500 mg PO BID 10/22/18 10/22/18 Unknown Previous Rx's Medication Instructions Recorded Last Taken Type Aspirin [Aspirin BABY CHEW TAB] 81 mg PO QDAY #30 tab.chew 09/03/18 Unknown Rx Furosemide [Lasix TAB] 40 mg PO QDAY #30 tablet 10/26/18 Unknown Rx Allergies Allergy/AdvReac Type Severity Reaction Status Date / Time No Known Allergies Allergy Unverified 08/19/18 05:03 ED Review of Systems ROS: Stated complaint: CARDIAC Other details as noted in HPI Comment: Unobtainable due to pts medical conditions ED Past Medical Hx - Past Medical History Previous Medical History?: Yes Hx Hypertension: Yes Hx Congestive Heart Failure: Yes Hx Diabetes: Yes Hx Asthma: No Additional medical history: L breast Ca, chemo & radiation-2007. remission since 2007 - Surgical History Past Surgical History?: Yes Additional Surgical History: partial hysterectomy. L lumpectomy 2007 - Family History Family history: no significant - Social History Smoking Status: Current Some Day Smoker Substance Use Type: Alcohol, Prescribed - Medications Home Medications: Home Medications Medication Instructions Recorded Confirmed Last Taken Type Aspirin [Aspirin BABY CHEW TAB] 81 mg PO QDAY #30 tab.chew 09/03/18 10/22/18 Unknown Rx ALBUTEROL Inhaler (OR & NICU) 2 puff IH QID PRN 10/22/18 10/22/18 Unknown History [ProAir HFA Inhaler] Atorvastatin Calcium [Lipitor] 80 mg PO DAILY 10/22/18 10/22/18 Unknown History Cholecalciferol Vit D3 [Vitamin D3 1,000 unit PO QDAY 10/22/18 10/22/18 Unknown History 1,000 UNIT TAB] Ipratropium (Nf) [Atrovent HFA 2 puff IH Q6HR 10/22/18 10/22/18 Unknown History 17MCG/PUFF] Lisinopril [Zestril TAB] 20 mg PO QDAY 10/22/18 10/22/18 Unknown History Metoprolol Succinate [Toprol Xl] 100 mg PO DAILY 10/22/18 10/22/18 Unknown History Potassium Chloride [K-Dur] 20 meq PO QDAY 10/22/18 10/22/18 Unknown History Spironolactone 25 mg PO DAILY 10/22/18 10/22/18 Unknown History Venlafaxine [Effexor] 75 mg PO DAILY 10/22/18 10/22/18 Unknown History metFORMIN [Glucophage] 500 mg PO BID 10/22/18 10/22/18 Unknown History Furosemide [Lasix TAB] 40 mg PO QDAY #30 tablet 10/26/18 Unknown Rx ED Physical Exam - General Limitations: Physical Limitation, Other General appearance: obtunded - Head Head exam: Present: atraumatic, normocephalic - Eye Eye exam: Present: other (pupils are fixed and dilated) - Respiratory Respiratory exam: Present: other (initially no breath sounds over the lower lung blas, patient was extubated and reintubated. After intubation patient noted to have bilateral lung sounds) - Cardiovascular Cardiovascular Exam: Present: other (no pulse noted. Asystole on monitor) - GI/Abdominal GI/Abdominal exam: Present: soft, distended - Extremities Exam Extremities exam: Present: normal inspection, other (IO noted in left lower extremity) - Skin Skin exam: Present: warm ED Course - Reevaluation(s) Reevaluation #1: Patient's estimated arrival. Patient brought in by EMS. CPR being done by EMS. Patient was intubated by EMS. Patient found to have no breath sounds over the lung blas and positive sounds over the epigastrium. Patient was immediately activated and reintubated. See procedure note. See code note. 11/06/18 12:01 Resuscitation efforts were terminated. Patient shows no signs of life. No post detected. No cardiac motion noted. Patient PEA on the monitor then asystole. Patient given multiple rounds of CPR and medications in accordance with ACLS guidelines. See code note. 11/06/18 12:10 Family meeting done. Family support given. All questions answered for family. 11/06/18 12:40 - Intubation Time Out Performed: Yes Sedative: none Laryngoscope: Rosa Size: 4 ET Tube Size: 7.5 Tube Secured Depth (cm): 23 Tube Secured Location: teeth Tube Placement Confirmation: visualized tube passing t, equal breath sounds bilat, no breath sounds over epi, confirmation by capnometr Patient Tolerated Procedure: well Intubation Complications: none ED Medical Decision Making - Medical Decision Making Patient is a 38-year-old female that presents emergency room in cardiac arrest. Patient was immediately extubated and reintubated upon arrival due to misplacement ET tube. See procedure note for intubation. Cardiac motion or rhythm never regained. Resuscitation efforts terminated. No signs of life noted. No cardiac motion. Patient throughout the code PEA and then asystole. See code noTE. Code ran in accordance with ACLS guidelines. Family support given and family meeting done. - Differential Diagnosis cardiac arrest. Critical Care Time: Yes Critical care attestation.: If time is entered above; I have spent that time in minutes in the direct care of this critically ill patient, excluding procedure time. Critical Care Time: 35 minutes ED Disposition Clinical Impression: Cardiac arrest Disposition: DC-20 Is pt being admited?: No Does the pt Need Aspirin: No Condition: Undetermined Time of Disposition: 14:23
== END 2018-11-06 15:24 ==
LOC: ED 12:03
DX: I46.9 Cardiac arrest, cause unspecified (principal); I11.0 Hypertensive heart disease with heart failure; I50.9 Heart failure, unspecified; F17.200 Nicotine dependence, unspecified, uncomplicated; Z90.711 Acquired absence of uterus with remaining cervical stump
CPT/HCPCS: 31500; 82962; 92950; 99291; J0171